=== PATIENT | male | born 1985 | race Caucasian/White ===

== ENCOUNTER 2023-05-23 20:29 | Inpatient (IN) | payer OTHER, SELFPAY ==
[2023-05-23 22:11] VITALS: BMI 28.1
[2023-05-23 22:13] VITALS: BP 126/84; PULSE 84; RESP 18; TEMP 36.6; O2SAT 97
--- NOTE | 2023-05-24 01:25 | PC.ADMIT ---
Woody is a 37 year old male admitted for unspecified depressive disorder on a CV from [facility]. patient stated that he drinks 1/2 a pint of hard liquor several times a week but has not drank since 05/19/23 as he has been at [facility] since 05/19/23. Patient states that he was feeling suicidal before going to [facility]. I felt like if I wasn't here if I just left then things would be better so I took some stuff. Patient is on Methadone Maintenance through [facility] . He describes feeling overwhelmed r/t homelessness, his children being in the custody of his parents secondary to his girlfriend having the children taken into DCF custody reportedly for the girlfriends prostitution. Per his crisis report the patient had positive suicidal/homicidal ideation prior to going to [facility]. When asked the patient denies current suicidal/homicidal ideation stating that he want's to get his medications adjusted and his life back together. Patient is alert and oriented on all spheres, pleasant and cooperative, all admission documentation completed, treatment plan initiated hospitalist consultation ordered and notifications made, monitor for safety
[2023-05-24 06:00] VITALS: BP 120/70; PULSE 81; TEMP 36.4; O2SAT 99
--- NOTE | 2023-05-24 07:39 | HE.PHANOTE ---
methadone verification form [facility] [phone] last dosed 05/23/23 @140 mg @ 0900
[2023-05-24 12:25] LABS: Alanine Aminotransferase 36 U/L (0-40); Alkaline Phosphatase 123 U/L (39-117); Anion Gap 16 (12-20); Aspartate Amino Transferase 47 U/L (5-37); Bilirubin Total 0.2 mg/dL (0.0-1.0); Blood Urea Nitrogen 12 mg/dL (9-16); Calcium 9.5 mg/dL (8.4-10.2); Carbon Dioxide 30 mmol/L (22-29); Chloride 101 mmol/L (96-108); Cholesterol 171 mg/dL (<200); Creatinine Clr Calc Pharmacy 101.9; Estimated Glomerular Filt Rate > 60; Glucose Fasting 138 mg/dL (60-99); HDL Cholesterol 54 mg/dL (>40); LDL Cholesterol Calculated 84 mg/dL (<100); Magnesium 2.1 mg/dL (1.6-2.6); Potassium 4.5 mmol/L (3.3-5.1); Sodium 142 mmol/L (135-145); Total Protein 6.9 g/dL (6.5-8.0); Triglycerides 169 mg/dL (<150)
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
[2023-05-24 12:42] LABS: Free T4 (Free Thyroxine) 1.06 ng/dL (0.71-1.85); Thyroid Stimulating Hormone 1.65 uIU/mL (0.32-4.0)
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
[2023-05-24 22:01] VITALS: BP 138/71; PULSE 80; RESP 18; TEMP 36.5; O2SAT 97
[2023-05-25 06:00] VITALS: BP 91/54; PULSE 72; RESP 18; TEMP 36.2; O2SAT 95
[2023-05-25 08:35] VITALS: BP 131/69; PULSE 80
--- NOTE | 2023-05-25 11:27 | HO.PSYCHPN ---
Subjective Subjective Date of Service: 05/25/23 Reason For Visit: Unspecified depressive disorder, opioid use Medical Problems Affecting Mental Status: No Interim History: met with patient. Discussed with Nursing. Chart reviewed. Overall reports mood is gradually getting better. Slept well last night. Feels the Seroquel and clonidine are helpful. No psychosis or SI. Looking forward to meeting with primary team tomorrow and remains open to rehab services. Labs unremarkable. Medication Compliance: Yes Side effects from medications: No Attending Groups: Intermittent Review of Systems Acute medical concerns: No Review of Systems Review of Systems Yes all other systems are reviewed and are negative Mental Status Exam Mental Status Exam Narrative: pleasant. Engaged. Appropriately presented. Organized. Less dysthymic. Denies SI. Denies HI or agitation. No overt psychosis noted or endorsed. Insight and judgment fair no evidence of withdrawals. Diagnostics Vital Signs (24Hr): Vital Signs - 24 hr 05/24/23 22:01 05/25/23 06:00 05/25/23 08:35 Temperature 97.7 F 97.1 F Pulse Rate 80 72 80 Respiratory Rate 18 18 Blood Pressure 138/71 91/54 L 131/69 Pulse Oximetry 97 95 Oxygen Delivery Method Room Air Room Air BMI result Body Mass Index 28.1 Labs 05/24/23 11:24 Labs: Laboratory Results - last 48 hr 05/24/23 11:24 Sodium 142 Potassium 4.5 Chloride 101 Carbon Dioxide 30 H Anion Gap 16 BUN 12 Creatinine 0.98 Estim Creat Clear Calc 101.9 Estimated GFR > 60 Fasting Glucose 138 H Estimat Average Glucose 100 Hemoglobin A1c % 5.1 Calcium 9.5 Magnesium 2.1 Total Bilirubin 0.2 AST 47 H ALT 36 Alkaline Phosphatase 123 H Total Protein 6.9 Albumin 4.0 Triglycerides 169 H Cholesterol 171 LDL Cholesterol, Calc 84 HDL Cholesterol 54 Folate 12.2 TSH 1.65 Free T4 1.06 Medications Medications Current Medications Acetaminophen (Acetaminophen 325 Mg Tablet) 650 mg PO Q6H PRN PRN Reason: Headache/Pain Mild Scale (1-3) Al Hydroxide/Mg Hydroxide (Magnesium Hydrox/Alum Hydrox 30 Ml Oral.Susp) 30 ml PO Q6H PRN PRN Reason: Heartburn/Nausea Clonidine HCl (Clonidine Hcl 0.1 Mg Tablet) 0.1 mg PO TID [facility]; Protocol Last Admin: 05/25/23 08:31 Dose: 0.1 mg Hydroxyzine HCl (Hydroxyzine Hcl 50 Mg Tablet) 50 mg PO Q6H PRN PRN Reason: Anxiety Last Admin: 05/24/23 22:06 Dose: 50 mg Magnesium Hydroxide (Milk Of Magnesia 30 Ml Oral.Susp) 30 ml PO DAILY PRN PRN Reason: Constipation Methadone HCl (Methadone Hcl 20 Mg/2 Ml Oral.Conc) 140 mg PO DAILY [facility] Last Admin: 05/25/23 08:30 Dose: 140 mg Quetiapine Fumarate (Quetiapine Fumarate 50 Mg Tablet) 50 mg PO TID [facility] Last Admin: 05/25/23 08:31 Dose: 50 mg Quetiapine Fumarate (Quetiapine Fumarate 50 Mg Tablet) 50 mg PO BID PRN PRN Reason: agitation Last Admin: 05/24/23 22:18 Dose: 50 mg Trazodone HCl (Trazodone Hcl 50 Mg Tablet) 50 mg PO BEDTIME MRX1 PRN PRN Reason: Insomnia Last Admin: 05/24/23 22:04 Dose: 50 mg Allergies Allergies Allergy/AdvReac Type Severity Reaction Status Date / Time No Known Allergies Allergy Unverified 02/03/20 15:50 [No Known Allergies*] Assessment & Plan Assessment & Plan (1) PTSD (post-traumatic stress disorder): Status: Acute Code(s): F43.10 - Post-traumatic stress disorder, unspecified (2) Depression: Status: Acute Code(s): F32.A - Depression, unspecified (3) Opioid dependence on agonist therapy: Status: Acute Code(s): F11.20 - Opioid dependence, uncomplicated Plan Presents with major depressive symptoms, trauma history and PTSD, substance use disorder, recent use and also on methadone maintenance. Significant psychosocial stressors. Has been without medications for the best part of 1 year and will therefore restart Seroquel, clonidine and Vistaril, which patient reports has been helpful in the past. 05/25/2023: No changes to current plan Reason for continued inpatient stay Substantial Risk for: harm to self Time Spent With Patient Time: Total time managing care of this patient today ____ minutes.
[2023-05-25 21:58] VITALS: BP 115/60; PULSE 73; RESP 16; TEMP 36.6; O2SAT 96
[2023-05-26 07:25] VITALS: BP 116/55; PULSE 86; RESP 18; TEMP 35.9; O2SAT 96
[2023-05-26 07:45] VITALS: BP 116/55; PULSE 86; RESP 18; TEMP 35.9; O2SAT 96
--- NOTE | 2023-05-26 13:49 | HO.PSYCHPN ---
Subjective Subjective Date of Service: 05/26/23 Reason For Visit: Unspecified depressive disorder, opioid use Interim History: calm, cooperative. found resting in his room. feels improved having been restarted on his regimen. would like to be referred to a rehab. no other complaints or requests. per staff, isolative sat/sun. excessive sleep. dep 7, anx 3. wants to D/C to a program. Mental Status Exam Mental Status Exam Narrative: pleasant. Engaged. Appropriately presented. Organized. Less dysthymic. Denies SI. Denies HI or agitation. No overt psychosis noted or endorsed. Insight and judgment fair no evidence of withdrawals. Diagnostics Vital Signs (24Hr): Vital Signs - 24 hr 05/25/23 21:58 05/26/23 07:25 05/26/23 07:45 Temperature 97.8 F 96.7 F L 96.7 F L Pulse Rate 73 86 86 Respiratory Rate 16 18 18 Blood Pressure 115/60 116/55 L 116/55 L Pulse Oximetry 96 96 96 Oxygen Delivery Method Room Air Room Air Room Air BMI result Body Mass Index 28.1 Labs 05/24/23 11:24 Medications Medications Current Medications Acetaminophen (Acetaminophen 325 Mg Tablet) 650 mg PO Q6H PRN PRN Reason: Headache/Pain Mild Scale (1-3) Al Hydroxide/Mg Hydroxide (Magnesium Hydrox/Alum Hydrox 30 Ml Oral.Susp) 30 ml PO Q6H PRN PRN Reason: Heartburn/Nausea Clonidine HCl (Clonidine Hcl 0.1 Mg Tablet) 0.1 mg PO TID [facility]; Protocol Last Admin: 05/26/23 08:10 Dose: 0.1 mg Hydroxyzine HCl (Hydroxyzine Hcl 50 Mg Tablet) 50 mg PO Q6H PRN PRN Reason: Anxiety Last Admin: 05/25/23 21:53 Dose: 50 mg Magnesium Hydroxide (Milk Of Magnesia 30 Ml Oral.Susp) 30 ml PO DAILY PRN PRN Reason: Constipation Methadone HCl (Methadone Hcl 20 Mg/2 Ml Oral.Conc) 140 mg PO DAILY [facility] Last Admin: 05/26/23 08:11 Dose: 140 mg Nicotine Polacrilex (Nicotine Polacrilex 2 Mg Gum) 4 mg BUCCAL Q1H PRN PRN Reason: Nicotine Cravings Quetiapine Fumarate (Quetiapine Fumarate 50 Mg Tablet) 50 mg PO TID [facility] Last Admin: 05/26/23 08:10 Dose: 50 mg Quetiapine Fumarate (Quetiapine Fumarate 50 Mg Tablet) 50 mg PO BID PRN PRN Reason: agitation Last Admin: 05/24/23 22:18 Dose: 50 mg Trazodone HCl (Trazodone Hcl 50 Mg Tablet) 50 mg PO BEDTIME MRX1 PRN PRN Reason: Insomnia Last Admin: 05/25/23 21:53 Dose: 50 mg Allergies Allergies Allergy/AdvReac Type Severity Reaction Status Date / Time No Known Allergies Allergy Unverified 02/03/20 15:50 [No Known Allergies*] Assessment & Plan Assessment & Plan (1) PTSD (post-traumatic stress disorder): Status: Acute Code(s): F43.10 - Post-traumatic stress disorder, unspecified (2) Depression: Status: Acute Code(s): F32.A - Depression, unspecified (3) Opioid dependence on agonist therapy: Status: Acute Code(s): F11.20 - Opioid dependence, uncomplicated Plan Presents with major depressive symptoms, trauma history and PTSD, substance use disorder, recent use and also on methadone maintenance. Significant psychosocial stressors. Has been without medications for the best part of 1 year and will therefore restart Seroquel, clonidine and Vistaril, which patient reports has been helpful in the past. 05/25: No changes to current plan 05/26: mood improved after regimen restarted. interested in [facility]. continue current mgmt, refer to [facility]. Reason for continued inpatient stay Substantial Risk for: harm to others and rapid decompensation Time Spent With Patient Time: Total time managing care of this patient today __25__ minutes.
[2023-05-26 15:21] VITALS: BP 103/63
[2023-05-26] MEDS: QUEtiapine Fumarate 50 MG TABLET PO ×2 (19:53→21:25)
[2023-05-26] MEDS: cloNIDine HCL 0.1 MG TABLET PO (21:25)
[2023-05-26] MEDS: traZODone HCL 50 MG TABLET PO (21:25)
[2023-05-26 21:33] VITALS: BP 120/60; PULSE 74; RESP 16; TEMP 35.9; O2SAT 98
[2023-05-27 07:15] VITALS: BP 99/52; PULSE 68; RESP 16; TEMP 36.3; O2SAT 97
[2023-05-27] MEDS: methADONE HCl 20 MG/2 ML ORAL.CONC 140 MG PO (09:28)
[2023-05-27] MEDS: cloNIDine HCL 0.1 MG TABLET PO ×3 (09:30→21:45)
[2023-05-27] MEDS: QUEtiapine Fumarate 50 MG TABLET PO ×2 (09:30→12:33)
[2023-05-27] MEDS: hydrOXYzine HCL 50 MG TABLET PO (12:33)
--- NOTE | 2023-05-27 14:40 | HO.PSYCHPN ---
Subjective Subjective Date of Service: 05/27/23 Reason For Visit: Unspecified depressive disorder, opioid use Interim History: calm, cooperative, pleasant. discussed his referrals to rehabs. asks for seroquel TID to be increased from 50 to 75 mg each dose. per staff, dep 4, anx 6-7. wants more seroquel at bedtime. slept about 8 hours. not attending groups. Mental Status Exam Mental Status Exam Narrative: pleasant. Engaged. Appropriately presented. Organized. euthymic. no SI/HI/AVH expressed. No overt psychosis noted or endorsed. Insight and judgment fair no evidence of withdrawals. Diagnostics Vital Signs (24Hr): Vital Signs - 24 hr 05/26/23 15:21 05/26/23 21:33 05/27/23 07:15 Temperature 96.6 F L 97.3 F Pulse Rate 74 68 Respiratory Rate 16 16 Blood Pressure 103/63 120/60 99/52 L Pulse Oximetry 98 97 Oxygen Delivery Method Room Air Room Air BMI result Body Mass Index 28.1 Labs 05/24/23 11:24 Labs: Laboratory Results - last 48 hr 05/24/23 11:24 Vitamin B12 875 Medications Medications Current Medications Acetaminophen (Acetaminophen 325 Mg Tablet) 650 mg PO Q6H PRN PRN Reason: Headache/Pain Mild Scale (1-3) Al Hydroxide/Mg Hydroxide (Magnesium Hydrox/Alum Hydrox 30 Ml Oral.Susp) 30 ml PO Q6H PRN PRN Reason: Heartburn/Nausea Clonidine HCl (Clonidine Hcl 0.1 Mg Tablet) 0.1 mg PO TID [facility]; Protocol Last Admin: 05/27/23 09:30 Dose: 0.1 mg Hydroxyzine HCl (Hydroxyzine Hcl 50 Mg Tablet) 50 mg PO Q6H PRN PRN Reason: Anxiety Last Admin: 05/27/23 12:33 Dose: 50 mg Magnesium Hydroxide (Milk Of Magnesia 30 Ml Oral.Susp) 30 ml PO DAILY PRN PRN Reason: Constipation Methadone HCl (Methadone Hcl 20 Mg/2 Ml Oral.Conc) 140 mg PO DAILY [facility] Last Admin: 05/27/23 09:28 Dose: 140 mg Nicotine Polacrilex (Nicotine Polacrilex 2 Mg Gum) 4 mg BUCCAL Q1H PRN PRN Reason: Nicotine Cravings Quetiapine Fumarate (Quetiapine Fumarate 50 Mg Tablet) 50 mg PO BID PRN PRN Reason: agitation Last Admin: 05/27/23 12:33 Dose: 50 mg Quetiapine Fumarate (Quetiapine Fumarate 25 Mg Tablet) 75 mg PO TID [facility] Trazodone HCl (Trazodone Hcl 50 Mg Tablet) 50 mg PO BEDTIME MRX1 PRN PRN Reason: Insomnia Last Admin: 05/26/23 21:25 Dose: 50 mg Allergies Allergies Allergy/AdvReac Type Severity Reaction Status Date / Time No Known Allergies Allergy Unverified 02/03/20 15:50 [No Known Allergies*] Assessment & Plan Assessment & Plan (1) PTSD (post-traumatic stress disorder): Status: Acute Code(s): F43.10 - Post-traumatic stress disorder, unspecified (2) Depression: Status: Acute Code(s): F32.A - Depression, unspecified (3) Opioid dependence on agonist therapy: Status: Acute Code(s): F11.20 - Opioid dependence, uncomplicated Plan Presents with major depressive symptoms, trauma history and PTSD, substance use disorder, recent use and also on methadone maintenance. Significant psychosocial stressors. Has been without medications for the best part of 1 year and will therefore restart Seroquel, clonidine and Vistaril, which patient reports has been helpful in the past. 05/25: No changes to current plan 05/26: mood improved after regimen restarted. interested in [facility]. continue current mgmt, refer to [facility]. 05/27: increase seroquel 50 TID to 75 TID, otherwise continue current mgmt. referrals being placed with [facility]. Reason for continued inpatient stay Substantial Risk for: inability to function and rapid decompensation Time Spent With Patient Time: Total time managing care of this patient today __25__ minutes.
[2023-05-27 16:08] VITALS: BP 100/59; PULSE 70
[2023-05-27] MEDS: QUEtiapine Fumarate 25 MG TABLET 75 MG PO ×2 (16:10→21:45)
[2023-05-27 21:00] VITALS: BP 115/67; PULSE 93; RESP 16; TEMP 36.7; O2SAT 96
[2023-05-28 07:05] VITALS: BP 106/63; PULSE 83; RESP 16; TEMP 35.8; O2SAT 98
[2023-05-28] MEDS: cloNIDine HCL 0.1 MG TABLET PO ×3 (09:49→20:27)
[2023-05-28] MEDS: QUEtiapine Fumarate 25 MG TABLET 75 MG PO ×3 (09:49→20:27)
[2023-05-28] MEDS: methADONE HCl 20 MG/2 ML ORAL.CONC 140 MG PO (09:50)
--- NOTE | 2023-05-28 13:15 | HO.PSYCHPN ---
Subjective Subjective Date of Service: 05/28/23 Reason For Visit: Unspecified depressive disorder, opioid use Interim History: no complaints or requests. waiting to hear from [employer]. reminded to call [facility] and to attend groups. denies SI/SIBI. mood stable. per staff, cheerful. visible at times. slept most of the day. taking meds. slept all shift. slept 8 hours overnight. not attending groups. Mental Status Exam Mental Status Exam Narrative: pleasant. Engaged. Appropriately presented. Organized. mood stable. no SI/HI/AVH expressed. No overt psychosis noted or endorsed. Insight and judgment fair no evidence of withdrawals. Diagnostics Vital Signs (24Hr): Vital Signs - 24 hr 05/27/23 16:08 05/27/23 21:00 05/28/23 07:05 Temperature 98.1 F 96.5 F L Pulse Rate 70 93 83 Respiratory Rate 16 16 Blood Pressure 100/59 L 115/67 106/63 Pulse Oximetry 96 98 Oxygen Delivery Method Room Air Room Air BMI result Body Mass Index 28.1 Labs 05/24/23 11:24 Labs: Laboratory Results - last 48 hr 05/24/23 11:24 Vitamin B12 875 Medications Medications Current Medications Acetaminophen (Acetaminophen 325 Mg Tablet) 650 mg PO Q6H PRN PRN Reason: Headache/Pain Mild Scale (1-3) Al Hydroxide/Mg Hydroxide (Magnesium Hydrox/Alum Hydrox 30 Ml Oral.Susp) 30 ml PO Q6H PRN PRN Reason: Heartburn/Nausea Clonidine HCl (Clonidine Hcl 0.1 Mg Tablet) 0.1 mg PO TID [facility]; Protocol Last Admin: 05/28/23 09:49 Dose: 0.1 mg Hydroxyzine HCl (Hydroxyzine Hcl 50 Mg Tablet) 50 mg PO Q6H PRN PRN Reason: Anxiety Last Admin: 05/27/23 12:33 Dose: 50 mg Magnesium Hydroxide (Milk Of Magnesia 30 Ml Oral.Susp) 30 ml PO DAILY PRN PRN Reason: Constipation Methadone HCl (Methadone Hcl 20 Mg/2 Ml Oral.Conc) 140 mg PO DAILY [facility] Last Admin: 05/28/23 09:50 Dose: 140 mg Nicotine Polacrilex (Nicotine Polacrilex 2 Mg Gum) 4 mg BUCCAL Q1H PRN PRN Reason: Nicotine Cravings Quetiapine Fumarate (Quetiapine Fumarate 50 Mg Tablet) 50 mg PO BID PRN PRN Reason: agitation Last Admin: 05/27/23 12:33 Dose: 50 mg Quetiapine Fumarate (Quetiapine Fumarate 25 Mg Tablet) 75 mg PO TID [facility] Last Admin: 05/28/23 09:49 Dose: 75 mg Trazodone HCl (Trazodone Hcl 50 Mg Tablet) 50 mg PO BEDTIME MRX1 PRN PRN Reason: Insomnia Last Admin: 05/26/23 21:25 Dose: 50 mg Allergies Allergies Allergy/AdvReac Type Severity Reaction Status Date / Time No Known Allergies Allergy Unverified 02/03/20 15:50 [No Known Allergies*] Assessment & Plan Assessment & Plan (1) PTSD (post-traumatic stress disorder): Status: Acute Code(s): F43.10 - Post-traumatic stress disorder, unspecified (2) Depression: Status: Acute Code(s): F32.A - Depression, unspecified (3) Opioid dependence on agonist therapy: Status: Acute Code(s): F11.20 - Opioid dependence, uncomplicated Plan Presents with major depressive symptoms, trauma history and PTSD, substance use disorder, recent use and also on methadone maintenance. Significant psychosocial stressors. Has been without medications for the best part of 1 year and will therefore restart Seroquel, clonidine and Vistaril, which patient reports has been helpful in the past. 05/25: No changes to current plan 05/26: mood improved after regimen restarted. interested in [facility]. continue current mgmt, refer to [facility]. 05/27: increase seroquel 50 TID to 75 TID, otherwise continue current mgmt. referrals being placed with [facility]. 05/28: no requests or complaints. continue current mgmt. awaiting word on [facility]. stable. Reason for continued inpatient stay Substantial Risk for: rapid decompensation Time Spent With Patient Time: Total time managing care of this patient today __25__ minutes.
[2023-05-28 14:15] VITALS: BP 109/62; PULSE 82
[2023-05-28 20:10] VITALS: BP 111/60; PULSE 81; RESP 16; TEMP 36.9; O2SAT 96
[2023-05-28] MEDS: QUEtiapine Fumarate 50 MG TABLET PO (21:58)
[2023-05-28] MEDS: hydrOXYzine HCL 50 MG TABLET PO (21:58)
[2023-05-29 06:00] VITALS: BP 103/55; PULSE 71; RESP 16; TEMP 36.3; O2SAT 96
[2023-05-29 07:00] VITALS: BMI 28.1
[2023-05-29] MEDS: methADONE HCl 20 MG/2 ML ORAL.CONC 140 MG PO (08:33)
[2023-05-29] MEDS: cloNIDine HCL 0.1 MG TABLET PO ×3 (08:35→20:42)
[2023-05-29] MEDS: QUEtiapine Fumarate 25 MG TABLET 75 MG PO ×3 (08:35→20:42)
[2023-05-29] MEDS: Nicotine Polacrilex 2 MG GUM 4 MG BUCCAL (09:42)
[2023-05-29] MEDS: QUEtiapine Fumarate 50 MG TABLET PO (10:02)
[2023-05-29] MEDS: hydrOXYzine HCL 50 MG TABLET PO (10:02)
--- NOTE | 2023-05-29 14:08 | HO.PSYCHPN ---
Subjective Subjective Date of Service: 05/29/23 Reason For Visit: Unspecified depressive disorder, opioid use Interim History: calm, cooperative. slept through the night, which is an improvement. feeling better mood-cruz. awaiting news on [facility] beds. per staff, stable, no change. Mental Status Exam Mental Status Exam Narrative: pleasant. Engaged. Appropriately presented. Organized. mood improved. no SI/HI/AVH expressed. No overt psychosis noted or endorsed. Insight and judgment fair no evidence of withdrawals. Diagnostics Vital Signs (24Hr): Vital Signs - 24 hr 05/28/23 14:15 05/28/23 20:10 05/29/23 06:00 Temperature 98.5 F 97.4 F Pulse Rate 82 81 71 Respiratory Rate 16 16 Blood Pressure 109/62 111/60 103/55 L Pulse Oximetry 96 96 Oxygen Delivery Method Room Air Room Air BMI result Body Mass Index 28.1 Labs 05/24/23 11:24 Medications Medications Current Medications Acetaminophen (Acetaminophen 325 Mg Tablet) 650 mg PO Q6H PRN PRN Reason: Headache/Pain Mild Scale (1-3) Al Hydroxide/Mg Hydroxide (Magnesium Hydrox/Alum Hydrox 30 Ml Oral.Susp) 30 ml PO Q6H PRN PRN Reason: Heartburn/Nausea Clonidine HCl (Clonidine Hcl 0.1 Mg Tablet) 0.1 mg PO TID [facility]; Protocol Last Admin: 05/29/23 08:35 Dose: 0.1 mg Hydroxyzine HCl (Hydroxyzine Hcl 50 Mg Tablet) 50 mg PO Q6H PRN PRN Reason: Anxiety Last Admin: 05/29/23 10:02 Dose: 50 mg Magnesium Hydroxide (Milk Of Magnesia 30 Ml Oral.Susp) 30 ml PO DAILY PRN PRN Reason: Constipation Methadone HCl (Methadone Hcl 20 Mg/2 Ml Oral.Conc) 140 mg PO DAILY [facility] Last Admin: 05/29/23 08:33 Dose: 140 mg Nicotine Polacrilex (Nicotine Polacrilex 2 Mg Gum) 4 mg BUCCAL Q1H PRN PRN Reason: Nicotine Cravings Last Admin: 05/29/23 09:42 Dose: 4 mg Quetiapine Fumarate (Quetiapine Fumarate 50 Mg Tablet) 50 mg PO BID PRN PRN Reason: agitation Last Admin: 05/29/23 10:02 Dose: 50 mg Quetiapine Fumarate (Quetiapine Fumarate 25 Mg Tablet) 75 mg PO TID [facility] Last Admin: 05/29/23 08:35 Dose: 75 mg Trazodone HCl (Trazodone Hcl 50 Mg Tablet) 50 mg PO BEDTIME MRX1 PRN PRN Reason: Insomnia Last Admin: 05/26/23 21:25 Dose: 50 mg Allergies Allergies Allergy/AdvReac Type Severity Reaction Status Date / Time No Known Allergies Allergy Unverified 02/03/20 15:50 [No Known Allergies*] Assessment & Plan Assessment & Plan (1) PTSD (post-traumatic stress disorder): Status: Acute Code(s): F43.10 - Post-traumatic stress disorder, unspecified (2) Depression: Status: Acute Code(s): F32.A - Depression, unspecified (3) Opioid dependence on agonist therapy: Status: Acute Code(s): F11.20 - Opioid dependence, uncomplicated Plan Presents with major depressive symptoms, trauma history and PTSD, substance use disorder, recent use and also on methadone maintenance. Significant psychosocial stressors. Has been without medications for the best part of 1 year and will therefore restart Seroquel, clonidine and Vistaril, which patient reports has been helpful in the past. 05/25: No changes to current plan 05/26: mood improved after regimen restarted. interested in [facility]. continue current mgmt, refer to [facility]. 05/27: increase seroquel 50 TID to 75 TID, otherwise continue current mgmt. referrals being placed with [facility]. 05/28: no requests or complaints. continue current mgmt. awaiting word on [facility]. stable. 05/29: no change from yesterday. sleeping better, mood improved. awaiting word from [facility]. Reason for continued inpatient stay Substantial Risk for: rapid decompensation Time Spent With Patient Time: Total time managing care of this patient today ____ minutes.
[2023-05-29 18:00] VITALS: BP 115/58; PULSE 88; RESP 18; TEMP 36.4; O2SAT 98
[2023-05-30 07:20] VITALS: BP 103/56; PULSE 76; RESP 18; TEMP 36.2; O2SAT 96
[2023-05-30] MEDS: methADONE HCl 20 MG/2 ML ORAL.CONC 140 MG PO (08:19)
[2023-05-30] MEDS: QUEtiapine Fumarate 25 MG TABLET 75 MG PO ×2 (08:21→20:14)
[2023-05-30] MEDS: cloNIDine HCL 0.1 MG TABLET PO ×3 (08:21→20:15)
[2023-05-30] MEDS: hydrOXYzine HCL 50 MG TABLET PO ×2 (11:31→19:37)
[2023-05-30] MEDS: QUEtiapine Fumarate 50 MG TABLET PO (11:31)
[2023-05-30] MEDS: Nicotine Polacrilex 2 MG GUM 4 MG BUCCAL (12:40)
--- NOTE | 2023-05-30 14:32 | HO.PSYCHPN ---
Subjective Subjective Date of Service: 05/30/23 Reason For Visit: Unspecified depressive disorder, opioid use Interim History: calm, cooperative. c/o constipation, bowel regimen added. per staff, awaiting [facility] bed. no issues. some groups, taking meds. slept. per staff, severe anxiety early afternoon due to triggering milieu, given seroquel 100 mg x 1. Mental Status Exam Mental Status Exam Narrative: pleasant. Engaged. Appropriately presented. Organized. mood improved. no SI/HI/AVH expressed. No overt psychosis noted or endorsed. Insight and judgment fair no evidence of withdrawals. Diagnostics Vital Signs (24Hr): Vital Signs - 24 hr 05/29/23 18:00 05/30/23 07:20 Temperature 97.6 F 97.2 F Pulse Rate 88 76 Respiratory Rate 18 18 Blood Pressure 115/58 L 103/56 L Pulse Oximetry 98 96 Oxygen Delivery Method Room Air Room Air BMI result Body Mass Index 28.1 Labs 05/24/23 11:24 Medications Medications Current Medications Acetaminophen (Acetaminophen 325 Mg Tablet) 650 mg PO Q6H PRN PRN Reason: Headache/Pain Mild Scale (1-3) Al Hydroxide/Mg Hydroxide (Magnesium Hydrox/Alum Hydrox 30 Ml Oral.Susp) 30 ml PO Q6H PRN PRN Reason: Heartburn/Nausea Clonidine HCl (Clonidine Hcl 0.1 Mg Tablet) 0.1 mg PO TID [facility]; Protocol Last Admin: 05/30/23 08:21 Dose: 0.1 mg Docusate Sodium (Docusate Sodium 100 Mg Capsule) 100 mg PO BID [facility] Last Admin: 05/30/23 12:31 Dose: Not Given Hydroxyzine HCl (Hydroxyzine Hcl 50 Mg Tablet) 50 mg PO Q6H PRN PRN Reason: Anxiety Last Admin: 05/30/23 11:31 Dose: 50 mg Magnesium Hydroxide (Milk Of Magnesia 30 Ml Oral.Susp) 30 ml PO DAILY PRN PRN Reason: Constipation Methadone HCl (Methadone Hcl 20 Mg/2 Ml Oral.Conc) 140 mg PO DAILY [facility] Last Admin: 05/30/23 08:19 Dose: 140 mg Nicotine Polacrilex (Nicotine Polacrilex 2 Mg Gum) 4 mg BUCCAL Q1H PRN PRN Reason: Nicotine Cravings Last Admin: 05/30/23 12:40 Dose: 4 mg Quetiapine Fumarate (Quetiapine Fumarate 50 Mg Tablet) 50 mg PO BID PRN PRN Reason: agitation Last Admin: 05/30/23 11:31 Dose: 50 mg Quetiapine Fumarate (Quetiapine Fumarate 25 Mg Tablet) 75 mg PO TID [facility] Last Admin: 05/30/23 08:21 Dose: 75 mg Trazodone HCl (Trazodone Hcl 50 Mg Tablet) 50 mg PO BEDTIME MRX1 PRN PRN Reason: Insomnia Last Admin: 05/26/23 21:25 Dose: 50 mg Allergies Allergies Allergy/AdvReac Type Severity Reaction Status Date / Time No Known Allergies Allergy Unverified 02/03/20 15:50 [No Known Allergies*] Assessment & Plan Assessment & Plan (1) PTSD (post-traumatic stress disorder): Status: Acute Code(s): F43.10 - Post-traumatic stress disorder, unspecified (2) Depression: Status: Acute Code(s): F32.A - Depression, unspecified (3) Opioid dependence on agonist therapy: Status: Acute Code(s): F11.20 - Opioid dependence, uncomplicated Plan Presents with major depressive symptoms, trauma history and PTSD, substance use disorder, recent use and also on methadone maintenance. Significant psychosocial stressors. Has been without medications for the best part of 1 year and will therefore restart Seroquel, clonidine and Vistaril, which patient reports has been helpful in the past. 05/25: No changes to current plan 05/26: mood improved after regimen restarted. interested in [facility]. continue current mgmt, refer to [facility]. 05/27: increase seroquel 50 TID to 75 TID, otherwise continue current mgmt. referrals being placed with [facility]. 05/28: no requests or complaints. continue current mgmt. awaiting word on [facility]. stable. 05/29: no change from yesterday. sleeping better, mood improved. awaiting word from [facility]. 05/30: stable, improved from admission. continue current mgmt. Reason for continued inpatient stay Substantial Risk for: inability to function and rapid decompensation Time Spent With Patient Time: Total time managing care of this patient today __25__ minutes.
[2023-05-30] MEDS: QUEtiapine Fumarate 100 MG TABLET PO (15:04)
[2023-05-30 15:05] VITALS: BP 97/59; PULSE 79; O2SAT 96
[2023-05-30 20:10] VITALS: BP 102/60; PULSE 78; RESP 14; TEMP 36.6; O2SAT 96
[2023-05-30] MEDS: traZODone HCL 50 MG TABLET PO (20:15)
[2023-05-31 07:35] VITALS: BP 108/59; PULSE 63; RESP 16; TEMP 35.9; O2SAT 96
[2023-05-31] MEDS: methADONE HCl 20 MG/2 ML ORAL.CONC 140 MG PO (09:34)
[2023-05-31] MEDS: cloNIDine HCL 0.1 MG TABLET PO ×3 (09:37→20:22)
[2023-05-31] MEDS: QUEtiapine Fumarate 25 MG TABLET 75 MG PO ×3 (09:37→20:21)
--- NOTE | 2023-05-31 13:07 | HO.PSYCHPN ---
Subjective Subjective Date of Service: 05/31/23 Reason For Visit: Unspecified depressive disorder, opioid use Subjective Notes: Conditional Voluntary Interim History: The nursing staff reported the patient had been restless, dysphoric at times. He complained that he has racing thoughts but he is much better he slept better. On interview the patient denies new symptoms he looks restless at times. No safety concerns Mental Status Exam Mental Status Exam Patient Appearance: Appropriate Patient Orientation: Person and Situation Level of Consciousness: Awake and Appropriate Patient Behavior: Guarded and Passive Mood Description: Calm Affect Description: Labile Patient Cognition Impaired: Yes Ability to Follow Directions: Fair Speech Pattern: Clear Hallucinations: None Delusions: Not Present Thought Process: Racing, Distracted and Evasive Thought Content: positive for [place], positive for Disorganized and positive for Evasive Judgement: Poor Diagnostics Vital Signs (24Hr): Vital Signs - 24 hr 05/30/23 15:05 05/30/23 20:10 05/31/23 07:35 Temperature 97.9 F 96.6 F L Pulse Rate 79 78 63 Respiratory Rate 14 16 Blood Pressure 97/59 L 102/60 108/59 L Pulse Oximetry 96 96 96 Oxygen Delivery Method Room Air Room Air BMI result Body Mass Index 28.1 Labs 05/24/23 11:24 Medications Medications Current Medications Acetaminophen (Acetaminophen 325 Mg Tablet) 650 mg PO Q6H PRN PRN Reason: Headache/Pain Mild Scale (1-3) Al Hydroxide/Mg Hydroxide (Magnesium Hydrox/Alum Hydrox 30 Ml Oral.Susp) 30 ml PO Q6H PRN PRN Reason: Heartburn/Nausea Clonidine HCl (Clonidine Hcl 0.1 Mg Tablet) 0.1 mg PO TID [facility]; Protocol Last Admin: 05/31/23 09:37 Dose: 0.1 mg Docusate Sodium (Docusate Sodium 100 Mg Capsule) 100 mg PO BID [facility] Last Admin: 05/31/23 09:38 Dose: Not Given Hydroxyzine HCl (Hydroxyzine Hcl 50 Mg Tablet) 50 mg PO Q6H PRN PRN Reason: Anxiety Last Admin: 05/30/23 19:37 Dose: 50 mg Magnesium Hydroxide (Milk Of Magnesia 30 Ml Oral.Susp) 30 ml PO DAILY PRN PRN Reason: Constipation Methadone HCl (Methadone Hcl 20 Mg/2 Ml Oral.Conc) 140 mg PO DAILY [facility] Last Admin: 05/31/23 09:34 Dose: 140 mg Nicotine Polacrilex (Nicotine Polacrilex 2 Mg Gum) 4 mg BUCCAL Q1H PRN PRN Reason: Nicotine Cravings Last Admin: 05/30/23 12:40 Dose: 4 mg Quetiapine Fumarate (Quetiapine Fumarate 50 Mg Tablet) 50 mg PO BID PRN PRN Reason: agitation Last Admin: 05/30/23 11:31 Dose: 50 mg Quetiapine Fumarate (Quetiapine Fumarate 25 Mg Tablet) 75 mg PO TID [facility] Last Admin: 05/31/23 09:37 Dose: 75 mg Trazodone HCl (Trazodone Hcl 50 Mg Tablet) 50 mg PO BEDTIME MRX1 PRN PRN Reason: Insomnia Last Admin: 05/30/23 20:15 Dose: 50 mg Allergies Allergies Allergy/AdvReac Type Severity Reaction Status Date / Time No Known Allergies Allergy Unverified 02/03/20 15:50 [No Known Allergies*] Assessment & Plan Assessment & Plan (1) PTSD (post-traumatic stress disorder): Status: Acute Code(s): F43.10 - Post-traumatic stress disorder, unspecified (2) Depression: Status: Acute Code(s): F32.A - Depression, unspecified (3) Opioid dependence on agonist therapy: Status: Acute Code(s): F11.20 - Opioid dependence, uncomplicated Plan Presents with major depressive symptoms, trauma history and PTSD, substance use disorder, recent use and also on methadone maintenance. Significant psychosocial stressors. Has been without medications for the best part of 1 year and will therefore restart Seroquel, clonidine and Vistaril, which patient reports has been helpful in the past. 05/25: No changes to current plan 05/26: mood improved after regimen restarted. interested in [facility]. continue current mgmt, refer to [facility]. 05/27: increase seroquel 50 TID to 75 TID, otherwise continue current mgmt. referrals being placed with [facility]. 05/28: no requests or complaints. continue current mgmt. awaiting word on [facility]. stable. 05/29: no change from yesterday. sleeping better, mood improved. awaiting word from [facility]. 05/30: stable, improved from admission. continue current mgmt. 05/31 continue same treatment Reason for continued inpatient stay Substantial Risk for: inability to function, rapid decompensation and med/psych decompensation Time Spent With Patient Time: Total time managing care of this patient today __20__ minutes.
[2023-05-31] MEDS: QUEtiapine Fumarate 50 MG TABLET PO ×2 (13:46→18:46)
[2023-05-31 14:12] VITALS: BP 103/62; PULSE 68
[2023-05-31] MEDS: Ibuprofen 600 MG TABLET PO (16:46)
[2023-05-31 20:00] VITALS: BP 105/60; PULSE 68; RESP 16; TEMP 36.5; O2SAT 96
[2023-05-31] MEDS: traZODone HCL 50 MG TABLET PO (20:21)
[2023-06-01 07:25] VITALS: BP 109/59; PULSE 71; RESP 14; TEMP 37.1; O2SAT 96
[2023-06-01] MEDS: QUEtiapine Fumarate 25 MG TABLET 75 MG PO ×3 (09:55→20:10)
[2023-06-01] MEDS: cloNIDine HCL 0.1 MG TABLET PO ×2 (09:55→20:10)
[2023-06-01] MEDS: methADONE HCl 20 MG/2 ML ORAL.CONC 140 MG PO (09:56)
--- NOTE | 2023-06-01 13:41 | P.PNPSI_ITS ---
Subjective Subjective Date of Service: 06/01/23 Reason For Visit: Unspecified depressive disorder, opioid use Subjective Notes: Conditional Voluntary Interim History: The nursing staff reported the patient had been withdrawn labile yesterday but more redirectable. He was a little aggressive towards a peer but he was easily redirectable. On interview the patient denies new symptoms. Content with current treatment Mental Status Exam Mental Status Exam Patient Appearance: Appropriate Patient Orientation: Person and Situation Level of Consciousness: Awake and Appropriate Patient Behavior: Passive Mood Description: Calm Affect Description: Constricted Patient Cognition Impaired: Yes Ability to Follow Directions: Good Speech Pattern: Clear Hallucinations: None Delusions: Not Present Thought Process: Distracted and Slowed Thinking Thought Content: positive for [place] Judgement: Fair Diagnostics Vital Signs (24Hr): Vital Signs - 24 hr 05/31/23 14:12 05/31/23 20:00 06/01/23 07:25 Temperature 97.7 F 98.8 F Pulse Rate 68 68 71 Respiratory Rate 16 14 Blood Pressure 103/62 105/60 109/59 L Pulse Oximetry 96 96 Oxygen Delivery Method Room Air Room Air BMI result Body Mass Index 28.1 Labs 05/24/23 11:24 Medications Medications Current Medications Acetaminophen (Acetaminophen 325 Mg Tablet) 650 mg PO Q6H PRN PRN Reason: Headache/Pain Mild Scale (1-3) Al Hydroxide/Mg Hydroxide (Magnesium Hydrox/Alum Hydrox 30 Ml Oral.Susp) 30 ml PO Q6H PRN PRN Reason: Heartburn/Nausea Clonidine HCl (Clonidine Hcl 0.1 Mg Tablet) 0.1 mg PO TID [facility]; Protocol Last Admin: 06/01/23 09:55 Dose: 0.1 mg Docusate Sodium (Docusate Sodium 100 Mg Capsule) 100 mg PO BID [facility] Last Admin: 06/01/23 09:59 Dose: Not Given Hydroxyzine HCl (Hydroxyzine Hcl 50 Mg Tablet) 50 mg PO Q6H PRN PRN Reason: Anxiety Last Admin: 05/30/23 19:37 Dose: 50 mg Ibuprofen (Ibuprofen 600 Mg Tablet) 600 mg PO Q6H PRN PRN Reason: Pain, Moderate(Pain Scale 4-6) Last Admin: 05/31/23 16:46 Dose: 600 mg Magnesium Hydroxide (Milk Of Magnesia 30 Ml Oral.Susp) 30 ml PO DAILY PRN PRN Reason: Constipation Methadone HCl (Methadone Hcl 20 Mg/2 Ml Oral.Conc) 140 mg PO DAILY [facility] Last Admin: 06/01/23 09:56 Dose: 140 mg Nicotine Polacrilex (Nicotine Polacrilex 2 Mg Gum) 4 mg BUCCAL Q1H PRN PRN Reason: Nicotine Cravings Last Admin: 05/30/23 12:40 Dose: 4 mg Quetiapine Fumarate (Quetiapine Fumarate 50 Mg Tablet) 50 mg PO BID PRN PRN Reason: agitation Last Admin: 05/31/23 18:46 Dose: 50 mg Quetiapine Fumarate (Quetiapine Fumarate 25 Mg Tablet) 75 mg PO TID [facility] Last Admin: 06/01/23 09:55 Dose: 75 mg Trazodone HCl (Trazodone Hcl 50 Mg Tablet) 50 mg PO BEDTIME MRX1 PRN PRN Reason: Insomnia Last Admin: 05/31/23 20:21 Dose: 50 mg Allergies Allergies Allergy/AdvReac Type Severity Reaction Status Date / Time No Known Allergies Allergy Unverified 02/03/20 15:50 [No Known Allergies*] Assessment & Plan Assessment & Plan (1) PTSD (post-traumatic stress disorder): Status: Acute Code(s): F43.10 - Post-traumatic stress disorder, unspecified (2) Depression: Status: Acute Code(s): F32.A - Depression, unspecified (3) Opioid dependence on agonist therapy: Status: Acute Code(s): F11.20 - Opioid dependence, uncomplicated Plan Presents with major depressive symptoms, trauma history and PTSD, substance use disorder, recent use and also on methadone maintenance. Significant psychosocial stressors. Has been without medications for the best part of 1 year and will therefore restart Seroquel, clonidine and Vistaril, which patient reports has been helpful in the past. 05/25: No changes to current plan 05/26: mood improved after regimen restarted. interested in [facility]. continue current mgmt, refer to [facility]. 05/27: increase seroquel 50 TID to 75 TID, otherwise continue current mgmt. referrals being placed with [facility]. 05/28: no requests or complaints. continue current mgmt. awaiting word on [facility]. stable. 05/29: no change from yesterday. sleeping better, mood improved. awaiting word from [facility]. 05/30: stable, improved from admission. continue current mgmt. 05/31 continue same treatment 06/01 continue same treatment Reason for continued inpatient stay Substantial Risk for: inability to function, rapid decompensation and med/psych decompensation Time Spent With Patient Time: Total time managing care of this patient today __20__ minutes.
[2023-06-01 14:02] VITALS: BP 95/56; PULSE 78
[2023-06-01] MEDS: QUEtiapine Fumarate 50 MG TABLET PO ×2 (14:04→20:10)
[2023-06-01 18:00] VITALS: BP 104/58; PULSE 75; RESP 18; TEMP 36.5; O2SAT 98
[2023-06-01] MEDS: traZODone HCL 50 MG TABLET PO (20:09)
[2023-06-02 07:20] VITALS: BP 98/57; PULSE 65; RESP 16; TEMP 36.2; O2SAT 95
[2023-06-02] MEDS: QUEtiapine Fumarate 25 MG TABLET 75 MG PO ×3 (08:30→21:27)
[2023-06-02] MEDS: cloNIDine HCL 0.1 MG TABLET PO ×3 (08:30→21:27)
[2023-06-02] MEDS: methADONE HCl 20 MG/2 ML ORAL.CONC 140 MG PO (08:32)
[2023-06-02] MEDS: QUEtiapine Fumarate 50 MG TABLET PO ×2 (11:32→21:28)
[2023-06-02] MEDS: hydrOXYzine HCL 50 MG TABLET PO (11:34)
--- NOTE | 2023-06-02 11:56 | HO.PSYCHPN ---
Subjective Subjective Date of Service: 06/02/23 Reason For Visit: Unspecified depressive disorder, opioid use Subjective Notes: Conditional Voluntary Interim History: Reviewed with Dr. Tran. social with peers, calm, guarded. Pt reports feeling good today; pt stated, I plan on going to the [facility] after here . denies SI/HI/VH/AH. Medication Compliance: Yes Side effects from medications: No Attending Groups: Intermittent Review of Systems Constitutional: Reports as per HPI Eyes: Reports as per HPI Reports as per HPI Cardiovascular: Reports as per HPI Respiratory: Reports as per HPI Gastrointestinal: Reports as per HPI Genitourinary: Reports as per HPI Musculoskeletal: Reports as per HPI Skin/Breast: Reports as per HPI Reports as per HPI Psychiatric: Reports as per HPI Endocrine: Reports as per HPI Hematologic/Lymphatic: Reports as per HPI Allergic/Immunologic: Reports as per HPI Mental Status Exam Mental Status Exam Narrative: Pt is alert and oriented; behavior is guarded; dressed in casual attire; mood is described as good ; eye contact appropriate; Speech is normal rate, volume and prosody and not pressured; thought process is organized; Thought content is on tx; denies SI/HI/VH/AH. Diagnostics Vital Signs (24Hr): Vital Signs - 24 hr 06/01/23 14:02 06/01/23 18:00 06/02/23 07:20 Temperature 97.7 F 97.2 F Pulse Rate 78 75 65 Respiratory Rate 18 16 Blood Pressure 95/56 L 104/58 L 98/57 L Pulse Oximetry 98 95 Oxygen Delivery Method Room Air Room Air BMI result Body Mass Index 28.1 Labs 05/24/23 11:24 Medications Medications Current Medications Acetaminophen (Acetaminophen 325 Mg Tablet) 650 mg PO Q6H PRN PRN Reason: Headache/Pain Mild Scale (1-3) Al Hydroxide/Mg Hydroxide (Magnesium Hydrox/Alum Hydrox 30 Ml Oral.Susp) 30 ml PO Q6H PRN PRN Reason: Heartburn/Nausea Clonidine HCl (Clonidine Hcl 0.1 Mg Tablet) 0.1 mg PO TID JAIME; Protocol Last Admin: 06/02/23 08:30 Dose: 0.1 mg Docusate Sodium (Docusate Sodium 100 Mg Capsule) 100 mg PO BID JAIME Last Admin: 06/02/23 08:30 Dose: Not Given Hydroxyzine HCl (Hydroxyzine Hcl 50 Mg Tablet) 50 mg PO Q6H PRN PRN Reason: Anxiety Last Admin: 06/02/23 11:34 Dose: 50 mg Ibuprofen (Ibuprofen 600 Mg Tablet) 600 mg PO Q6H PRN PRN Reason: Pain, Moderate(Pain Scale 4-6) Last Admin: 05/31/23 16:46 Dose: 600 mg Magnesium Hydroxide (Milk Of Magnesia 30 Ml Oral.Susp) 30 ml PO DAILY PRN PRN Reason: Constipation Methadone HCl (Methadone Hcl 20 Mg/2 Ml Oral.Conc) 140 mg PO DAILY JAIME Last Admin: 06/02/23 08:32 Dose: 140 mg Nicotine Polacrilex (Nicotine Polacrilex 2 Mg Gum) 4 mg BUCCAL Q1H PRN PRN Reason: Nicotine Cravings Last Admin: 05/30/23 12:40 Dose: 4 mg Quetiapine Fumarate (Quetiapine Fumarate 50 Mg Tablet) 50 mg PO BID PRN PRN Reason: agitation Last Admin: 06/02/23 11:32 Dose: 50 mg Quetiapine Fumarate (Quetiapine Fumarate 25 Mg Tablet) 75 mg PO TID JAIME Last Admin: 06/02/23 08:30 Dose: 75 mg Trazodone HCl (Trazodone Hcl 50 Mg Tablet) 50 mg PO BEDTIME MRX1 PRN PRN Reason: Insomnia Last Admin: 06/01/23 20:09 Dose: 50 mg Allergies Allergies Allergy/AdvReac Type Severity Reaction Status Date / Time No Known Allergies Allergy Unverified 02/03/20 15:50 [No Known Allergies*] Assessment & Plan Assessment & Plan (1) PTSD (post-traumatic stress disorder): Status: Acute Code(s): F43.10 - Post-traumatic stress disorder, unspecified (2) Depression: Status: Acute Code(s): F32.A - Depression, unspecified (3) Opioid dependence on agonist therapy: Status: Acute Code(s): F11.20 - Opioid dependence, uncomplicated Plan Presents with major depressive symptoms, trauma history and PTSD, substance use disorder, recent use and also on methadone maintenance. Significant psychosocial stressors. Has been without medications for the best part of 1 year and will therefore restart Seroquel, clonidine and Vistaril, which patient reports has been helpful in the past. 05/25: No changes to current plan 05/26: mood improved after regimen restarted. interested in [facility]. continue current mgmt, refer to [facility]. 05/27: increase seroquel 50 TID to 75 TID, otherwise continue current mgmt. referrals being placed with [facility]. 05/28: no requests or complaints. continue current mgmt. awaiting word on [facility]. stable. 05/29: no change from yesterday. sleeping better, mood improved. awaiting word from [facility]. 05/30: stable, improved from admission. continue current mgmt. 05/31 continue same treatment 06/01 continue same treatment 06/02: social with peers, calm, guarded. Pt reports feeling good today; pt stated, I plan on going to the [facility] after here . denies SI/HI/VH/AH. Continue current tx plan. Patient educated on: diagnosis and medication risk/benefits Informed Consent: understands Reason for continued inpatient stay Substantial Risk for: med/psych decompensation Time Spent With Patient Time: Total time managing care of this patient today _20___ minutes.
[2023-06-02 19:50] VITALS: BP 120/59; PULSE 74; RESP 18; TEMP 36.2; O2SAT 96
[2023-06-02] MEDS: traZODone HCL 50 MG TABLET PO (21:27)
[2023-06-03 07:50] VITALS: BP 107/59; PULSE 75; RESP 16; TEMP 36.8; O2SAT 98
[2023-06-03] MEDS: methADONE HCl 20 MG/2 ML ORAL.CONC 140 MG PO (09:03)
[2023-06-03] MEDS: cloNIDine HCL 0.1 MG TABLET PO ×3 (09:03→21:56)
[2023-06-03] MEDS: QUEtiapine Fumarate 25 MG TABLET 75 MG PO ×3 (09:03→21:56)
[2023-06-03] MEDS: hydrOXYzine HCL 50 MG TABLET PO (12:04)
[2023-06-03] MEDS: QUEtiapine Fumarate 50 MG TABLET PO (12:04)
--- NOTE | 2023-06-03 13:27 | HO.PSYCHPN ---
Subjective Subjective Date of Service: 06/03/23 Reason For Visit: Unspecified depressive disorder, opioid use Subjective Notes: Conditional Voluntary Interim History: Reviewed with Dr. Tran. social with peers, calm, guarded. Pt stated, I'm doing good. I'm just waiting to leave here . medication compliant. Medication Compliance: Yes Side effects from medications: No Attending Groups: No Review of Systems Constitutional: Reports as per HPI Eyes: Reports as per HPI Reports as per HPI Cardiovascular: Reports as per HPI Respiratory: Reports as per HPI Gastrointestinal: Reports as per HPI Genitourinary: Reports as per HPI Musculoskeletal: Reports as per HPI Skin/Breast: Reports as per HPI Reports as per HPI Psychiatric: Reports as per HPI Endocrine: Reports as per HPI Hematologic/Lymphatic: Reports as per HPI Allergic/Immunologic: Reports as per HPI Mental Status Exam Mental Status Exam Narrative: Pt is alert and oriented; behavior is guarded; dressed in casual attire; mood is described as good ; eye contact appropriate; Speech is normal rate, volume and prosody and not pressured; thought process is organized; Thought content is on tx; denies SI/HI/VH/AH. Diagnostics Vital Signs (24Hr): Vital Signs - 24 hr 06/02/23 19:50 06/03/23 07:50 Temperature 97.2 F 98.2 F Pulse Rate 74 75 Respiratory Rate 18 16 Blood Pressure 120/59 L 107/59 L Pulse Oximetry 96 98 Oxygen Delivery Method Room Air Room Air BMI result Body Mass Index 28.1 Labs 05/24/23 11:24 Medications Medications Current Medications Acetaminophen (Acetaminophen 325 Mg Tablet) 650 mg PO Q6H PRN PRN Reason: Headache/Pain Mild Scale (1-3) Al Hydroxide/Mg Hydroxide (Magnesium Hydrox/Alum Hydrox 30 Ml Oral.Susp) 30 ml PO Q6H PRN PRN Reason: Heartburn/Nausea Clonidine HCl (Clonidine Hcl 0.1 Mg Tablet) 0.1 mg PO TID JAIME; Protocol Last Admin: 06/03/23 09:03 Dose: 0.1 mg Docusate Sodium (Docusate Sodium 100 Mg Capsule) 100 mg PO BID JAIME Last Admin: 06/03/23 09:03 Dose: Not Given Hydroxyzine HCl (Hydroxyzine Hcl 50 Mg Tablet) 50 mg PO Q6H PRN PRN Reason: Anxiety Last Admin: 06/03/23 12:04 Dose: 50 mg Ibuprofen (Ibuprofen 600 Mg Tablet) 600 mg PO Q6H PRN PRN Reason: Pain, Moderate(Pain Scale 4-6) Last Admin: 05/31/23 16:46 Dose: 600 mg Magnesium Hydroxide (Milk Of Magnesia 30 Ml Oral.Susp) 30 ml PO DAILY PRN PRN Reason: Constipation Methadone HCl (Methadone Hcl 20 Mg/2 Ml Oral.Conc) 140 mg PO DAILY JAIME Last Admin: 06/03/23 09:03 Dose: 140 mg Nicotine Polacrilex (Nicotine Polacrilex 2 Mg Gum) 4 mg BUCCAL Q1H PRN PRN Reason: Nicotine Cravings Last Admin: 05/30/23 12:40 Dose: 4 mg Quetiapine Fumarate (Quetiapine Fumarate 50 Mg Tablet) 50 mg PO BID PRN PRN Reason: agitation Last Admin: 06/03/23 12:04 Dose: 50 mg Quetiapine Fumarate (Quetiapine Fumarate 25 Mg Tablet) 75 mg PO TID JAIME Last Admin: 06/03/23 09:03 Dose: 75 mg Trazodone HCl (Trazodone Hcl 50 Mg Tablet) 50 mg PO BEDTIME MRX1 PRN PRN Reason: Insomnia Last Admin: 06/02/23 21:27 Dose: 50 mg Allergies Allergies Allergy/AdvReac Type Severity Reaction Status Date / Time No Known Allergies Allergy Unverified 02/03/20 15:50 [No Known Allergies*] Assessment & Plan Assessment & Plan (1) PTSD (post-traumatic stress disorder): Status: Acute Code(s): F43.10 - Post-traumatic stress disorder, unspecified (2) Depression: Status: Acute Code(s): F32.A - Depression, unspecified (3) Opioid dependence on agonist therapy: Status: Acute Code(s): F11.20 - Opioid dependence, uncomplicated Plan Presents with major depressive symptoms, trauma history and PTSD, substance use disorder, recent use and also on methadone maintenance. Significant psychosocial stressors. Has been without medications for the best part of 1 year and will therefore restart Seroquel, clonidine and Vistaril, which patient reports has been helpful in the past. 05/25: No changes to current plan 05/26: mood improved after regimen restarted. interested in [facility]. continue current mgmt, refer to [facility]. 05/27: increase seroquel 50 TID to 75 TID, otherwise continue current mgmt. referrals being placed with [facility]. 05/28: no requests or complaints. continue current mgmt. awaiting word on [facility]. stable. 05/29: no change from yesterday. sleeping better, mood improved. awaiting word from [facility]. 05/30: stable, improved from admission. continue current mgmt. 05/31 continue same treatment 06/01 continue same treatment 06/02: social with peers, calm, guarded. Pt reports feeling good today; pt stated, I plan on going to the [facility] after here . denies SI/HI/VH/AH. Continue current tx plan. 06/03: Continue current tx plan. Patient educated on: diagnosis and medication risk/benefits Informed Consent: understands Reason for continued inpatient stay Substantial Risk for: med/psych decompensation Time Spent With Patient Time: Total time managing care of this patient today _20___ minutes.
[2023-06-03 21:30] VITALS: BP 106/60; PULSE 79; RESP 18; TEMP 36.1; O2SAT 99
[2023-06-03] MEDS: traZODone HCL 50 MG TABLET PO (21:56)
[2023-06-04 07:45] VITALS: BP 104/62; PULSE 67; TEMP 36.5; O2SAT 98
[2023-06-04] MEDS: methADONE HCl 20 MG/2 ML ORAL.CONC 140 MG PO (09:22)
[2023-06-04] MEDS: QUEtiapine Fumarate 25 MG TABLET 75 MG PO ×3 (09:22→20:42)
[2023-06-04] MEDS: Docusate Sodium 100 MG CAPSULE PO (09:23)
[2023-06-04] MEDS: cloNIDine HCL 0.1 MG TABLET PO (09:23)
[2023-06-04 14:21] VITALS: BP 108/75; PULSE 80
[2023-06-04] MEDS: cloNIDine HCL 0.1 MG TABLET 0.15 MG PO ×2 (14:24→20:40)
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
[2023-06-04 20:30] VITALS: BP 101/60; PULSE 83; RESP 16; TEMP 36.7; O2SAT 96
[2023-06-04] MEDS: traZODone HCL 50 MG TABLET PO (20:42)
[2023-06-05] MEDS: QUEtiapine Fumarate 25 MG TABLET 75 MG PO (10:00)
[2023-06-05] MEDS: cloNIDine HCL 0.1 MG TABLET 0.15 MG PO (10:00)
[2023-06-05] MEDS: methADONE HCl 20 MG/2 ML ORAL.CONC 140 MG PO (10:01)
[2023-06-05 10:08] VITALS: BP 112/56; PULSE 95; RESP 18; TEMP 36.2; O2SAT 97
== END 2023-06-05 11:35 | disposition home or self-care (01) | DRG 754 ==
PROVIDERS: Clinical Nurse Specialist Psychiatric/Mental Health, Adult; Admitting Provider Psychiatry & Neurology Psychiatry; Visit Provider Psychiatry & Neurology Psychiatry
DX: F32.A Depression, unspecified (principal); F11.20 Opioid dependence, uncomplicated; F17.210 Nicotine dependence, cigarettes, uncomplicated; F43.12 Post-traumatic stress disorder, chronic; Z71.6 Tobacco abuse counseling; Z59.02 Unsheltered homelessness; Z79.899 Other long term (current) drug therapy
CPT/HCPCS: 36415; 80053; 80061; 82607; 82746; 83036; 83735; 84439; 84443

== ENCOUNTER → 2023-05-23 20:29 | Outpatient (BNV) | payer MEDICAID, SELFPAY | PROVIDERS: Admitting Provider Psychiatry & Neurology Psychiatry; Visit Provider Physician Assistant | DX: Z00.00 Encounter for general adult medical examination without abnormal findings (principal) | CPT/HCPCS: 99222 ==

== ENCOUNTER → 2023-05-23 20:29 | Outpatient (BNV) | payer OTHER, SELFPAY | PROVIDERS: Admitting Provider Psychiatry & Neurology Psychiatry; Visit Provider Psychiatry & Neurology Psychiatry | DX: F33.1 Major depressive disorder, recurrent, moderate (principal); F11.20 Opioid dependence, uncomplicated; F43.11 Post-traumatic stress disorder, acute | CPT/HCPCS: 99231; 99232 ==

== ENCOUNTER 2023-12-25 15:05 | Emergency (ER) | payer OTHER, SELFPAY ==
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
[2023-12-25 15:20] VITALS: RESP 20; BMI 32.5
[2023-12-25] MEDS: diphenhydrAMINE HCL 50 MG/ML VIAL IM (15:36)
[2023-12-25] MEDS: LORazepam 2 MG/ML VIAL IM (15:36)
[2023-12-25] MEDS: droPERidol 5 MG/2 ML VIAL 2.5 MG IM (15:36)
--- NOTE | 2023-12-25 15:49 | PC.NURSE ---
Pt came in through triage, reported to this RN that pt was displaying acts of self harm, hitting himself. Pt endorses SI, unclear about plan. Admits to crack/ cocaine use. Making bizarre statements, yelling.Hard to redirect. MD and security in pod. 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 Pt medicated per JUL with IMs, monitoring pt
[2023-12-25 16:04] VITALS: BP 118/82; PULSE 94; RESP 20; TEMP 37.1; O2SAT 94
--- NOTE | 2023-12-25 16:05 | PC.NURSE ---
Pt agrees to have vitals taken. Reports to RN that he used crack/cocaine, heroin and alcohol today. Does report self harm feelings and SI, no plan. Denies HI. Reports pain in bilat feet from scabs/ walking. Denies daily alcohol use or withdrawal seizures.
[2023-12-25 16:15] VITALS: RESP 18
[2023-12-25 16:45] VITALS: PULSE 70; RESP 16
--- OUTSIDE RECORDS SUMMARY | 2023-12-25 16:45 | XMS_ITS | Continuity of Care Document ---
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 Your feedback will be used to make improvements to the healthcare experiences of our patients and their families. Surveys are administered by [employer] ?? If further treatment with your primary care physician or another doctor is recommended, it is important for you to keep the appointment. Call your primary care physician or return to the Emergency Department immediately if your condition worsens, fails to improve, or new symptoms develop. If you need to find a doctor, you can call [facility] [employer] for a referral at [phone] or toll free at [phone]) or log in to [email or web address].. ?? [facility], in keeping with [facility] guidance, no longer requires face masks for staff, patientsor visitors in most situations. Similiar to time spent indoors at other locations, there is the chance that you were exposed to repiratory viruses during your time with us (such as flu or COVID-19). If you develop symptoms concerning for a viral respiratory infection, please seek testing (and treatment if indicated) from your medical provider or home test kit. ?? You can view and manage your care through the patient portal or by using a health care jabier of your choosing. [employer] is a website that allows you to securely view your medical information including your hospital discharge summary, office visit summaries, medications and follow-up visits. You can also request appointments, renew medications, and request access to your medical information using a health care jabier of your choosing, or just ask a question. You can enroll at [email or web address] or register during your next office visit. You have been discharged from [facility], Patient Care Unit: SW6??. If you have any questions regarding these instructions, including results of studies pending, afteryou leave, please call us and we will be happy to assist you 09/12. [facility] Your Care Team Attending Physician Marilyn MOROCHO MD, Adin T?? Consulting Providers Marilyn MOROCHO MD, Adin T?? Discharging Providers Ya Slaughter MD Your Diagnosis Hemothorax on left Tests Performed Below is a partial list of the tests performed during your hospitalization. You may have had other tests and procedures not included in this list. Please discuss all test results with your provider. Albumin Fluid?-- Results Pending -- Amylase Fluid?-- Results Pending -- Anaerobic Culture?-- Results Pending -- Anaerobic Result Body Fluid Culture Aer/Anaer/Gram Stain Body Fluid Culture Reflex BUN Calcium Ionized CBC w/ Differential Chylous Effusion?-- Results Pending -- Creatinine Electrolytes Fungal Culture, Non-Blood?-- Results Pending -- Glucose Fluid?-- Results Pending -- Glucose Level Gram Stain Result LDH Fluid?-- Results Pending -- Magnesium Level pH Fluid?-- Results Pending -- Phosphorus Level Protein Fluid?-- Results Pending -- Chest CT W/ Contrast CT Abd/Pelvis W/ IV Contrast Only CT Chest W/ IV Contrast XR Chest 2 Views Frontal and Lat XR Chest Portable You will be contacted within 72 hours with your results. Albumin Fluid?? Amylase Fluid?? Anaerobic Culture?? BUN?? CBC w/ Differential?? Chylous Effusion?? Creatinine?? Electrolytes?? Fungal Culture, Non-Blood?? Glucose Fluid?? Glucose Level?? Ionized Calcium (Calcium Ionized)?? LDH Fluid?? Magnesium Level?? Phosphorus Level?? Protein Fluid?? pH Fluid?? Primary Care Provider Not on Staff, PCP?? Advance Directive Health Care Proxy on File Yes - Health Care Proxy Discharge Vitals Temperature: 98.1 DegF Height: 167.64 cm Pulse Rate: 90 bpm Weight: 84.7 kg Respiratory Rate: 20 br/min Body Mass Index:??30.14 kg/m2??Critical Systolic Blood Pressure: 125 mm Hg Body surface area: 1.99 Diastolic Blood Pressure: 77 mm Hg ?? Oxygen Saturation: 94 % ?? Studies Pending All studies ordered during this hospital stay have been completed unless listed below. Please discuss all pending results with your provider listed above in these instructions. ?? Albumin Fluid?? Amylase Fluid?? Anaerobic Culture?? BUN?? CBC w/ Differential?? Chylous Effusion?? Creatinine?? Electrolytes?? Fungal Culture, Non-Blood?? Glucose Fluid?? Glucose Level?? Ionized Calcium (Calcium Ionized)?? LDH Fluid?? Magnesium Level?? Phosphorus Level?? Protein Fluid?? pH Fluid?? What to do next Instructions From Your Doctor You were hospitalized for a collection of fluid outside your lung. Fluid can accumulate in the chest after having broken ribs and needs to be drained because it can interfere with your ability to breath and cause infections. You had a chest tube inserted which drained over a liter of fluid from your chest. You were seen by physical therapy who recommended returning to rehab for your other injuries. You will follow up with our trauma clinic on October 14 and get a chest x-ray to make sure the fluid in your chest does not come back. You should take tylenol??every 6 hours for pain and use a lidocaine patch on your chest??every 12 hours for pain. If you are??still having pain,??you can take??gabapentin every??8 hours. If??you are still having pain??with??the gabapentin??added, you can take one oxycodone tablet every 3??hours for pain that is not controlled by tylenol, gabapentin, and the lidocaine patch.? Orders? 09/30/23 12:22:00 EDT?? Scheduled Follow-Up Appointments Friday. 2023 1:40 PM EDT ?? With: Heather ADRIAN, Rolando Page Where: [facility] [address] [place] [address]- Status: Pending Discharge Medications WOODY WEBSTER :1985 Visit Date:09/24/2023 Medications: Please continue your medications until treatment is completed or stopped by your provider. Medications not listed below should be discontinued. Discuss any questions related to medications with your provider. What How Much When Instructions Next Dose New Oxycodone (oxyCODONE 5 mg oral tablet) 5 Milligram Oral Every 3 hours as needed for Pain , Moderate Printed Prescription as needed Unchanged Acetaminophen (acetaminophen 325 mg oral tablet) 975 Milligram Oral Every 6 hours 6pm 09/30/23 Unchanged Clonidine (cloNIDine 0.1 mg oral tablet) 0.1 Milligram Oral 4 times a day as directed Unchanged Gabapentin (gabapentin 400 mg oral capsule) 400 Milligram Oral 3 times a day 3pm 09/30/23 Unchanged HydrOXYzine (hydrOXYzine hydrochloride 50 mg oral tablet) TAKE 1 TABLET BY MOUTH EVERY 6 HOURS NEEDED FOR ANXIETY ?? as needed Unchanged Lidocaine Topical (lidocaine 5% topical film) Topically Daily as directed Unchanged Methadone 175 Milligram Oral Daily 9am 10/01/23 Unchanged Mirtazapine (mirtazapine 30 mg oral tablet) 1 tab(s) Oral Daily at Bedtime 8pm 09/30/23 Unchanged Polyethylene Glycol 3350 (MiraLax Powder) 17 gram Oral Daily 9am 10/01/23 Unchanged Quetiapine (QUEtiapine 100 mg oral tablet) 100 Milligram Oral Daily at Bedtime 8pm 09/30/23 Unchanged Senna (Senna 8.6 mg oral tablet) 1 tab(s) Oral Daily 9am 10/01/23 Unchanged Trazodone (traZODone 50 mg oral tablet) 1 tab(s) Oral Daily at Bedtime 8pm 09/30/23 Unchanged Trazodone (traZODone 50 mg oral tablet) 1 tab(s) Oral Daily at Bedtime ?? What How Much When Comments Stop Taking Docusate (Colace sodium 100 mg oral capsule) 1 capsule Oral Twice a day Prescription Given During Visit Oxycodone (oxyCODONE 5 mg oral tablet) - 5 mg, By Mouth, Every 3 hours, # 12 tablet, 0 Refills?? Laboratory Results Below is a partial list of the most recent Laboratory test results done prior to this discharge. You may have had other tests and procedures not included in this list. Please discuss all test resultswith your provider. Est Creatinine Clearance - 110.22 mL/min (09/28/2023) Anaerobic Result (09/25/2023) ???Anaerobic Culture Isolate 1 - Comment Body Fluid Culture Aer/Anaer/Gram Stain (09/25/2023) ???Gram Stain Result - Final report???Anaerobic Cult, Extended Incub - Preliminary report???Body Fluid Culture Results - Final report???Body Fluid Specimen Source - Pleural fluid Body Fluid Culture Reflex (09/25/2023) ???Body Fluid Culture Isolate 1 - Comment BUN (09/28/2023) ???BUN - 15 mg/dL Calcium Ionized (09/28/2023) ???Calcium, Ionized pH Corrected - 1.22 mmol/L CBC w/ Differential (09/28/2023) ???WBC - 7.6 k/mm3???RBC - 4.38 m/mm3???Hgb - 11.5 Gm/dL???Hct - 37.0 %???MCV - 84.5 femtoliters???MCH - 26.3 pg???MCHC - 31.1 g/dL???Platelet Count - 549 k/mm3???RDW-SD - 44.5 femtoliters???MPV - 9.4 femtoliters???Nucleated RBC (Automated) - 0.0 #/100 WBC'S???Abs. NRBC - 0.0 k/mm3???Abs. Neut - 4.3 k/mm3???Abs. Lymph - 2.0 k/mm3???Abs. Collier - 0.8 k/mm3???Abs. Eo - 0.4 k/mm3???Abs. Baso - 0.0 k/mm3???Neut % - 57.3 %???Lymph % - 25.8 %???Collier % - 11.1 %???Eos % - 4.8 %???Baso % - 0.5 %???Imm Gran - 0.5 %???Abs. Imm Gran - 0.0 k/mm3 Creatinine (09/28/2023) ???Creatinine-Blood - 0.82 mg/dL???Estimated GFR Creatinine - 115 ML/MIN/1.73 M2 Electrolytes (09/28/2023) ???Sodium - 138 mmol/L???Potassium - 4.9 mmol/L???Chloride - 99 mmol/L???Bicarbonate Level - 25 mmol/L???Anion Gap - 14 Glucose Level (09/28/2023) ???Glucose Level - 147 mg/dL Gram Stain Result (09/25/2023) ???Gram Stain Isolate 1 - Comment???Gram Stain Isolate 2 - No organisms seen Magnesium Level (09/28/2023) ???Magnesium - 2.2 mg/dL Phosphorus Level (09/28/2023) ???Phosphorus - 4.9 mg/dL Allergies (NKA means No Known Allergies) NKA Problems Active Problems??(10) Cocaine abuse?? cocaine use?? IV drug user?? Marijuana use?? Moderate cocaine use disorder?? Obese class I?? Opioid abuse?? Opioid use disorder, severe, dependence?? Polysubstance abuse?? seizure disorder?? Education Materials Below is the list of Educational Leaflet Providered with your Discharge Instructions. [employer] Patient Education - Chest Tubes?? [employer] Patient Education - Pleural Effusion?? Valuables and Belongings I fully understand and agree that [facility] accepts no responsibility for all my personal property including clothing, toilet articles, radios, jewelry, dentures, hearing aids, rings, money, or any other property that is in my possession or is brought to me after admission. I understand certain valuables may be placed in a hospital safe for a short period of time. I understand that the hospital is not liable for loss or damage due to accident, fire, or other natural occurrence while said property is in the safe. I accept full responsibility for any personal property that I keep with me, and will not hold the hospital responsible in case of loss or disappearance. I acknowledge that i have been encouraged to send valuables and belongings home. ?? Review of Valuable and Belonging List: With patient, With witness Date for Pt to Sign Valuables/Belongings: 09/26/23 20:46:00 ?? Other Discharge Information ? Case Management Discharge Plan?? Discharge Plan?? Discharge Agency Information?? Discharge Level of Care at Discharge: custodial facility Agency [facility]1: Admissions Discharge Transportation Arranged: [facility] [address] [facility] [phone] Service Categories #1: Physical Therapy, Retirement Mode of Transportation Arranged: Chair Van Name of Person Notified of Transfer: Woody Webster Discharge Arranged Transport Date/Time: 09/30/23 14:00:00 Name of Receiving Clinician/Provider: A clinician will be assigned to you at the facility Discharge Nursing Homes/Rehab Facilities: [facility] Phone Number of Receiving Facility: [facility] ?? Pulmonary Rehab Status?? Pulmonary Rehab Discharge Status?? Respiratory Rate: 20 br/min ? Common Emergency Awareness Tips IS IT A STROKE? Act FAST and Check for these signs: FACE Does the face look uneven? ARM Does one arm drift down? SPEECH Does their speech sound strange? TIME Call at any sign of stroke ?? Heart Attack Signs Chest discomfort: Most heart attacks involve discomfort in the center of the chest and lasts more than a few minutes, or goes away and comes back. It can feel like uncomfortable pressure, squeezing, fullness or pain. Discomfort in upper body: Symptoms can include pain or discomfort in one or both arms, back, neck, jaw or stomach. Shortness of breath: With or without discomfort. Other signs: Breaking out in a cold sweat, nausea, or lightheaded. Remember, MINUTES DO MATTER. If you experience any of these heart attack warning signs, call to get immediate medical attention! ?? Smoking can increase your chances of developing chronic health problems and can cause harmful effects to other family members in your house. If you smoke, you are strongly encouraged to quit. Please call [facility] [employer] at [phone] or [phone]) or log in to [email or web address] for referrals to smoking cessation programs. ?? 135 Suicide & Crisis Lifeline is available 09/12 if you or someone you know needs to find a reason to keep living. By calling 473 you'll be connected to a skilled, trained counselor at a crisis center in your area. INPATIENT DISCHARGE INSTRUCTIONS SIGNATURE PAGE WOODY WEBSTER [facility]:[id number] Location:[facility] Registration Date and Time:09/24/2023 16:02 EDT Primary Care Physician: Not on Staff, PCP Attending Physician: Marilyn MOROCHO MD, Eran T, I WOODY WEBSTER, have received the above patient education materials/instructions and have verbalized understanding. If ambulance or transport services are being used I further acknowledge being given a choice of service. ?? If you need to contact me, please call me at this number: . Patient/Operator And Truck Driver Name: Patient/Operator And Truck Driver Signature: Relationship to Patient: Witness Name/Signature: Date: * Ya Slaughter MD: PERFORM Event Display: Patient Education Leaflets Authored Date: Chest Tubes ?? 16890 Chest Tubes Your lungs are each surrounded by two layers of membrane (pleura). The space between these layers is called the pleural space. Normally the pleural space has a tiny amount of fluid in it. But extra fluid, blood, pus, or air in the pleural space makes it hard for the lung to expand and makes breathing hard. A chest tube is a soft, flexible tube put into the pleural space that surrounds the lung. The tube doesn't go into the lung itself.??The tube drains blood, air, or extra fluid. The tube is inserted through a small cut (incision) in the skin. ?? Reasons for a chest tube You may need a chest tube: ??? After chest surgery or injury to the chest ??? To treat a lung infection or abscess. This is called an empyema. ??? To remove extra fluid from around the lung from other causes. This is called a pleural effusion. This might be from heart failure. ??? To treat collapsed lung (pneumothorax) ??? To treat bleeding into the chest (hemothorax) ?? Chest tube placement A chest tube is often placed during chest surgery while you???re in the operating room and still asleep (sedated). If you have a lung infection or other problem, you may have a chest tube placed while you???re awake in the emergency department,your hospital room, or in a radiology suite. The procedure takes less than 30 minutes. Here???s how it's done: ??? Medical staff takes your blood pressure,pulse, and temperature. ??? You lie on your side or sit in a semi- upright position. You will be asked to put one arm up over your head. ??? The healthcare provider injects pain medicine (anesthetic) to numb the area where the chest tube is placed. You may be given medicine to make you relax (sedation) or pain medicine. Sedation is given in an IV (intravenous) line in your hand or arm. ??? The provider makes a small incision in your side, chest, or back. They put a soft, flexible tube??into the incision site. The tube is guided between your ribs until it reaches the pleural space. The providermay use ultrasound imaging??or computed tomography (CT) to help place the tube correctly. ??? The provider may stitch the tube??to your skin to keep it in place. It will also be covered with an airtight bandage. The tubing will be taped to your body. This is to keep it from being pulled out by accident. ??? The tube is then connected to a drainage device. o A chest drainage unit pulls the extra fluid, blood, pus, or air from your chest. The device should be lower than your chest level and may be put on the floor. Some chest tubes??contain water and may make a bubbling sound while they are working. Other chest tubes will not make any sound at all. o A flutter valve is a small one-way valve. It's used if you have a collapsed lung??( pneumothorax). The lung collapsed??because of the collection of air in the pleural space. The valve is attached directly to the end of your chest tube. The valve opens to let air escape from the chest tube. It then closes to prevent air from going back in the tube. You may go home from the hospital with your chest tube attached to a flutter valve. Care forit as you are told. ??? You will have an X-ray after the procedure to help confirm that the tube isin the right place, and that the air and fluid have been drained. ?? While the tube is in place ??? The tube stays in place for as long as your healthcare provider thinks it's needed.??You??may be in the hospital until after the tube is removed. Sometimes you may be sent home with the chest tube still in place. If you are sent home with the chest tube in place, you will need home healthcare or a caregiver until it is removed. ??? You will be given pain medicine bymouth or by IV. You may have a patient-controlled analgesia ([employer] MEDICA[employer]) pump attached to the IV line. This lets you give yourself pain medicine, but it's programmed so you can't overdose.??You are usually sent home when you can take oral pain medicine and no longer need IV pain medicine. ??? You may need extra oxygen. This is given through a mouth mask or a flexible tube under your nose. You may also be connected to a small device called a pulse oximeter. It measures the amount of oxygen in your blood. It is placed on your finger, toe, or ear. ??? After the tube is placed, you can help with drainage by: o Breathing deeply o Coughing o Sitting upright o Moving and walking around if told to do so by your healthcare provider ??? You can reduce discomfort by holding a pillow tightly to your chest when you cough. ??? Your breathing and heart rate will be monitored. The tubing will be checked regularly. If blood is draining from your chest, the tubing will be checked for clots. If a clot appears,the tubing may be squeezed to move the clot out of the tube. If fluid is draining from your chest, it may be tested for signs of infection or other problems. You may need antibiotics to prevent or treat infection. ??? Tell a nurse right away if you have trouble breathing or chest, shoulder, or neckpain. ?? Risks and possible complications of chest tubes A chest tube can have some risks. But the benefits of having the tube usually outweigh the risks. Risks of a chest tube include: ??? Air leak ??? Infection ??? Bleeding ??? Reaction to anesthesia used during placement ??? Lung damage, and damage to other surrounding structures ??? Nerve damage to the area ? Caution! Don't pull on the tube or tip over the drainage container. This can cause serious breathing problems. If you pull on the tube or tip over the container, tell a nurse right away. You may be asked to exhale fully or take deep breaths while the tubing is checked. ?? Removing the chest tube When the air, blood, pus, or extra fluid is gone from the pleural space, your healthcare provider will remove??the tube. This may be done in your hospital bed. You may get more pain medicine before the tube is removed. As the tube is removed, you may be asked to inhale or exhale deeply and then hold your breath. After the tube is removed, the healthcare provider may close the incision??with stitches. Or the incision may be left to close by itself. The provider will put a??bandage??over the incision. You may have an X-ray after the tube is removed. This is to make sure your lung is still inflated. ?? Follow-up care After the tube is removed: ??? Follow up with the healthcare provider within 48 hours. You may haveanother X-ray. This is to check for fluid or air in your lung. The incision will be checked to makesure it's healing. The bandage may be replaced with a smaller adhesive bandage. You may change the bandage as often as needed. ??? Care for the insertion site(s) as directed. Keep the bandage in place for 48 hours. Keep it dry. ??? Until a scab has formed on the incision site, you may shower but not take a bath. When a scab has formed, you no longer need an adhesive bandage. After the incision has healed, you may have a small scar. ?? When to call the healthcare provider While the tube is in place and after it has been removed, call [facility] provider (or alert your nurse) right away if you have any of the following: Call 911 if you have any of these: ??? Trouble breathing ??? Chest pain that may spread to your shoulder or back ??? You cough up blood ??? Bluish color of the skin ??? Fainting ??? A feeling of anxiety or restlessness ??? Fast or irregular pulse Call your healthcare provider if you have any of these: ??? Fever??of??100.4??F (38??F)??or higher, chills, or as directed by your healthcare provider ??? Weakness or dizziness ??? Increasing pain, swelling, redness, warmth, bleeding, foul odor, or drainage at the chest tube site ?? Last Reviewed Date: 2021 ?? 0966-2600 [employer]. All rights reserved. This information is not intended as a substitute for professional medical care. Always follow your healthcare professional's instructions. ?? * Ya Slaughter MD: PERFORM Event Display: Patient Education Leaflets Authored Date: [id number] Pleural Effusion ?? [id number] Pleural Effusion The pleura is a smooth double membrane that surrounds the lungs. It separates the lungs from the chest wall. One side of the pleura attaches to the lung. The other side attaches to the chest wall. This membrane makes it easier for the chest to inflate and deflate as you breathe without rubbing against the ribs. You normally have a small amount of lubricating fluid (pleural fluid) between the pleural membranes. A pleural effusion is when too much fluid collects in the space between the two pleural membranes (pleural space). As the amount of fluid increases, it begins to press on the lung. This makes it harder to take a full breath. There are two types of pleural effusion: ??? Exudative. This is caused by extra fluid related to inflammation, injury, infection, or a tumor. Empyema is when pus builds up in the pleural space. ??? Transudative. This is caused by abnormal fluid pressures inside the blood vessels. The pressure can be caused by congestive heart failure (CHF). In CHF, extra fluid collects inside the lung tissues because of a weakened heart muscle. This extra fluid then leaks into the pleural space. Pleural effusion may cause any of these symptoms: ??? Shortness of breath ??? Rapid breathing ??? Cough or hiccups ??? Sharp chest pain that hurts more with coughing or deep breathing ??? Fever ??? Fatigue A small pleural effusion may cause no symptoms at all. Treatment will be directed at the cause of the pleural effusion. If you are having a lot of troublebreathing, the healthcare provider may do a thoracentesis procedure to remove the fluid from the pleural space. This involves placing a needle or tube (catheter) through the chest wall into the pleural space. This usually gives relief right away. But the fluid may gradually return, depending on thecause. You may be given antibiotics if your pleural effusion was caused by an infection. Home care Follow these guidelines when caring for yourself at home: ??? Rest until you feel better. Exerting yourself may make your symptoms worse. ??? Your healthcare provider may have prescribed medicines totreat the underlying cause of the pleural effusion. Take these exactly as directed. ?? Follow-up care Follow up with your healthcare provider, or as advised. ?? When to seek medical advice Call your healthcare provider right away if any of these occur: ??? Fever of 100.4??F (38??C) or higher, or as directed by your healthcare provider ??? Chills ??? Dry cough that doesn't get better with treatment ??? Generally not feeling well ??? Sudden inability to do daily activities ?? Call 911 Call 911 if any of the following occur: ??? Shortness of breath gets worse ??? Chest pain gets worse ??? Chest tightness or heaviness ??? Coughing up blood ??? Weakness, dizziness, or fainting ?? Last Reviewed Date: 2021 ?? 4193-3030 [employer]. All rights reserved. This information is not intended as a substitute for professional medical care. Always follow your healthcare professional's instructions. ?? Patient Care team information Care Team Personnel Name: Jazmín De Guzman RN Position: [facility] RN Member Role: Primary Care Nurse Name: Milton Gant RN Position: [facility] RN Member Role: Primary Care Nurse Name: Heather Martinez RN Position: [facility] HBO Wound Member Role: Primary Care Nurse Name: Nickie Awan RN Position: [facility] RN Member Role: Primary Care Nurse Name: Titus Mendez RN Position: [facility] RN Member Role: Primary Care Nurse Name: Charlene Rojas RN Position: [facility] RN Member Role: Primary Care Nurse Name: Terri Conway RN Position: [facility] RN Member Role: Primary Care Nurse Name: Juli Sheikh RN Position: [facility] RN Member Role: Primary Care Nurse Name: Adriana Orosco RN Position: [facility] RN Member Role: Primary Care Nurse Name: Trish Paredes RN Position: [facility] RN Member Role: Primary Care Nurse Name: Lenin Soares RN Position: [facility] RN Member Role: Primary Care Nurse Name: Jahaira Urban Position: [facility] RN Member Role: Primary Care Nurse Name: Dominique Alarcon RN Position: [facility] RN Member Role: Primary Care Nurse Name: Handy Blackman RN Position: [facility] RN Member Role: Primary Care Nurse Name: Nieves Patricia RN Position: [facility] RN Member Role: Primary Care Nurse Name: Georgia Lynne RN Position: [facility] RN Member Role: Primary Care Nurse Name: Bebeto Morales RN Position: [facility] RN Member Role: Primary Care Nurse Name: Shani De La Cruz RN Position: [facility] RN Member Role: Primary Care Nurse Name: April Boyd RN Position: [facility] RN Member Role: Primary Care Nurse Name: Not on Staff, PCP Position: [facility] Physician (General Medicine) Member Role: PCP Name: Kate Younger RN Position: [facility] RN Member Role: Primary Care Nurse Name: Sparkle Velasquez RNLatha Position: [facility] RN Member Role: Primary Care Nurse Name: Millie Mcarthur RN Position: [facility] RN Member Role: Primary Care Nurse Name: Elma Tang RN Position: [facility] RN Member Role: Primary Care Nurse Name: Ryland Paulson RN Position: [facility] ED RN W/OE and Tasks Member Role: Primary Care Nurse Name: Fouzia Mccray RN Position: [facility] RN Member Role: Primary Care Nurse Name: Marisa Escoto RN Position: [facility] RN Member Role: Primary Care Nurse Name: Alexandru Decker RN Position: [facility] RN Member Role: Primary Care Nurse Name: Nini Venegas RN Position: [facility] RN Member Role: Primary Care Nurse Name: Maris Lugo RN Position: [facility] RN Member Role: Primary Care Nurse Name: Karen Christiansen RN Position: [facility] RN Member Role: Primary Care Nurse Name: Herbert Garnica RN Position: [facility] RN Member Role: Primary Care Nurse Name: Anne Marie Castañeda RN Position: [facility] RN Member Role: Primary Care Nurse Name: Norman Carpenter RN Position: [facility] RN Member Role: Primary Care Nurse Care Team Related Persons Name: JAVIER JOHNSON Address: home [address] [place] [address] Name: ERASTO WEBSTER Address: home [address] [place] [address]
--- OUTSIDE RECORDS SUMMARY | 2023-12-25 16:46 | XMS_ITS | Continuity of Care Document ---
Author Organization [facility] Address [address] [place] [address] [address] [place] [address]- Care Team Providers Care Method Consultant Name Role Phone Not on Staff, PCP Primary Care Physician Unavail able [place] [facility] [place] - 10/01/[address] [place] [address]- Attending Physician: Not on Staff, Attending MD Allergies, Adverse Reactions, Alerts No Known [...] quantity. Start Date: 06/08/23 Status: Ordered gabapentin 400 mg oral capsule 400 mg, [...] opioid drug. Start Date: 06/12/23 Status: Ordered MiraLax Powder 1 pack/packet = 17 Gm, [...] dependence Confirmed Active Polysubstance abuse Confirmed Active Vital Signs Most recent to oldest [Reference Range]: 1 Height 177.8 cm (09/24/23 2:38 PM) Weight 87 kg (09/24/23 2:38 PM) Pulse Rate [55-90 bpm] 63 bpm (09/24/23 2:38 PM) Body Mass Index [18.5-24.99 kg/m2] 27.52 kg/m2 *H* (09/24/23 2:38 PM) Blood Pressure [90-138/55-84 mm Hg] 113/ 61mm Hg (09/24/23 2:38 PM) Respiratory Rate [16-30 br/min] 17 br/mi n (09/24/23 2:38 PM) Temperature [96.8-100.4 DegF] 97.1 DegF (09/24/23 2:38 PM) Blood pressure sites Arm, right (09/24/23 2:38 PM) Temperature Route Temporal (09/24/23 2:38 PM) Weight Obtained Via Patient/family state d (09/24/23 2:38 PM) Social History Social History Type Response Smoking Status 5-9 cigarettes (betw een 1/4 to 1/2 pack)/day in last 30 days; Interested in cessation: No entered on: 06/08/23 Sex Patient Care team information Care Team Personnel Name: Jazmín De Guzman RN Position: [facility] RN Member Role: Primary Care Nurse Name: Milton Gant RN Position: [facility] RN Member Role: Primary Care Nurse Name: Heather Martinez RN Position: [facility] HBO Wound Member Role: Primary Care Nurse Name: Nickie Awan RN Position: [facility] RN Member Role: Primary Care Nurse Name: Titus Mendez RN Position: [facility] RN Member Role: Primary Care Nurse Name: Charlene Rojas RN Position: [facility] RN Member Role: Primary Care Nurse Name: Terri Conway RN Position: [facility] RN Member Role: Primary Care Nurse Name: Juli Sheikh RN Position: [facility] RN Member Role: Primary Care Nurse Name: Adriana Orosco RN Position: [facility] RN Member Role: Primary Care Nurse Name: Trish Paredes RN Position: [facility] RN Member Role: Primary Care Nurse Name: Lenin Soares RN Position: [facility] RN Member Role: Primary Care Nurse Name: Jahaira Urban Position: [facility] RN Member Role: Primary Care Nurse Name: Dominique Alarcon RN Position: [facility] RN Member Role: Primary Care Nurse Name: Handy Blackman RN Position: [facility] RN Member Role: Primary Care Nurse Name: Nieves Patricia RN Position: [facility] RN Member Role: Primary Care Nurse Name: Georgia Lynne RN Position: [facility] RN Member Role: Primary Care Nurse Name: Bebeto Morales RN Position: [facility] RN Member Role: Primary Care Nurse Name: Shani De La Cruz RN Position: [facility] RN Member Role: Primary Care Nurse Name: April Boyd RN Position: [facility] RN Member Role: Primary Care Nurse Name: Not on Staff, PCP Position: [facility] Physician (General Medicine) Member Role: PCP Name: Kate Younger RN Position: [facility] RN Member Role: Primary Care Nurse Name: Latha Sevilla RN Position: [facility] RN Member Role: Primary Care Nurse Name: Millie Mcarthur RN Position: [facility] RN Member Role: Primary Care Nurse Name: Elma Tang RN Position: [facility] RN Member Role: Primary Care Nurse Name: Ryland Paulson RN Position: [facility] ED RN W/OE and Tasks Member Role: Primary Care Nurse Name: Fouzia Mccray RN Position: [facility] RN Member Role: Primary Care Nurse Name: Marisa Escoto RN Position: [facility] RN Member Role: Primary Care Nurse Name: Alexandru Decker RN Position: [facility] RN Member Role: Primary Care Nurse Name: Nini Venegas RN Position: [facility] RN Member Role: Primary Care Nurse Name: Maris Lugo RN Position: S RN Member Role: Primary Care Nurse Name: Karen Christiansen RN Position: [facility] RN Member Role: Primary Care Nurse Name: Herbert Garnica RN Position: [facility] RN Member Role: Primary Care Nurse Name: Anne Marie Castañeda RN Position: [facility] RN Member Role: Primary Care Nurse Name: Norman Carpenter RN Position: [facility] RN Member Role: Primary Care Nurse Care Team Related Persons Name: JAVIER JOHNSON Address: home [address] [place] [address] Name: ERASTO ERVIN Address: home [address] [place] [address]
--- OUTSIDE RECORDS SUMMARY | 2023-12-25 16:46 | XMS_ITS | Continuity of Care Document ---
Author Organization [facility] Address [address] [place] [address] [address] [place] [address]- Care Team Providers Care Traveling Clerk Name Role Phone Not on Staff, PCP Primary Care Physician Unavail able Encounter [facility] Date(s): 10/15/23 - 11/14/[address] [place] [address]- Attending Physician: Collins Brown Admitting Physician: Collins Brown Referring Physician: AdmtrCollins Allergies, Adverse Reactions, Alerts No Known Allergies [...] opioid drug. Start Date: 09/03/23 Status: Ordered QUEtiapine 100 mg oral tablet [...] opioid drug. Start Date: 09/10/23 Status: Ordered tiZANidine 4 mg oral capsule 2 capsule = 8 mg, By Mouth, 3 times a day, 0 Refills, Maintenance, 10/15/23 13:09:00 EDT, Partial fill upon patient request if the prescription is for a schedule II opioid drug. Start Date: 10/15/23 Status: Ordered traZODone 50 mg oral tablet [...] dependence Confirmed Active Polysubstance abuse Confirmed Active Social History Social History Type Response Smoking Status 5-9 cigarettes (betw een 1/4 to 1/2 pack)/day in last 30 days; Interested in cessation: No entered on: 06/08/23 Sex Patient Care team information Care Team Personnel Name: Jazmín De Guzman RN Position: [facility] RN Member Role: Primary Care Nurse Name: Milton Gant RN Position: [facility] RN Member Role: Primary Care Nurse Name: Heather Martinez RN Position: [facility] HBO Wound Member Role: Primary Care Nurse Name: Nickie Awan RN Position: [facility] RN Member Role: Primary Care Nurse Name: Titus Mendez RN Position: [facility] RN Member Role: Primary Care Nurse Name: Charlene Rojas RN Position: [facility] RN Member Role: Primary Care Nurse Name: Terri Conway RN Position: [facility] RN Member Role: Primary Care Nurse Name: Juli Sheikh RN Position: [facility] RN Member Role: Primary Care Nurse Name: Adriana Orosco RN Position: [facility] RN Member Role: Primary Care Nurse Name: Trish Paredes RN Position: [facility] RN Member Role: Primary Care Nurse Name: Lenin Soares RN Position: [facility] RN Member Role: Primary Care Nurse Name: Jahaira Urban RN Position: [facility] RN Member Role: Primary Care Nurse Name: Dominique Alarcon RN Position: [facility] RN Member Role: Primary Care Nurse Name: Handy Blackman RN Position: [facility] RN Member Role: Primary Care Nurse Name: Nieves Patricia RN Position: [facility] RN Member Role: Primary Care Nurse Name: Georgia Lynne RN Position: [facility] RN Member Role: Primary Care Nurse Name: Bebeto Morales RN Position: [facility] RN Member Role: Primary Care Nurse Name: Shani De La Cruz RN Position: [facility] RN Member Role: Primary Care Nurse Name: Ayde Boyd RN Position: [facility] RN Member Role: Primary Care Nurse Name: Not on Staff, PCP Position: [facility] Physician (General Medicine) Member Role: PCP Name: Kate Younger RN Position: [facility] RN Member Role: Primary Care Nurse Name: Latha Sevilla RN Position: [facility] RN Member Role: Primary Care Nurse Name: Millie Mcarthur RN Position: [facility] RN Member Role: Primary Care Nurse Name: Elma Tang RN Position: [facility] RN Member Role: Primary Care Nurse Name: Ryland Paulson RN Position: [facility] ED RN W/OE and Tasks Member Role: Primary Care Nurse Name: Fouzia Mccray RN Position: [facility] RN Member Role: Primary Care Nurse Name: Marisa Escoto RN Position: [facility] RN Member Role: Primary Care Nurse Name: Alexandru Decker RN Position: [facility] RN Member Role: Primary Care Nurse Name: Nini Venegas RN Position: [facility] RN Member Role: Primary Care Nurse Name: Maris Lugo RN Position: [facility] RN Member Role: Primary Care Nurse Name: Karen Christiansen RN Position: [facility] RN Member Role: Primary Care Nurse Name: Herbert Garnica RN Position: [facility] RN Member Role: Primary Care Nurse Name: Anne Marie Castañeda RN Position: [facility] RN Member Role: Primary Care Nurse Name: Nroman Carpenter RN Position: [facility] RN Member Role: Primary Care Nurse Care Team Related Persons Name: JOHNSON JAVIER Address: home [address] [place] [address] Name: ERASTO ERVIN Address: home [address] [place] [address]
--- OUTSIDE RECORDS SUMMARY | 2023-12-25 16:46 | XMS_ITS | Continuity of Care Document ---
Author Organization [facility] Address [address] [place] [address] [address] [place] [address]- Care Team Providers Care Software Consultant Name Role Phone Not on Staff, PCP Primary Care Physician Unavail able Encounter [facility] [place] Date(s): 10/15/23 - 10/22/[address] [place] [address]- Attending Physician: Not on Staff, Attending MD [...] recent to oldest [Reference Range]: 1 Height 167.64 cm (10/15/23 1:10 PM) Pulse Rate [55-90 bpm] 70 bpm (10/15/23 1:10 PM) Blood Pressure [90-138/55-84 mm Hg] 109/ 74mm Hg (10/15/23 1:10 PM) Temperature [96.8-100.4 DegF] 97.1 DegF (10/15/23 1:10 PM) Blood pressure sites Arm, right (10/15/23 1:10 PM) Temperature Route Temporal (10/15/23 1:10 PM) Social History Social History Type Response Smoking Status 5-9 cigarettes (betw een 1/4 to 1/2 pack)/day in last 30 days; Interested in cessation: No entered on: 06/08/23 Sex Patient Care team information Care Team Personnel Name: Jazmín De Guzman RN Position: [facility] RN Member Role: Primary Care Nurse Name: Milton Gant RN Position: [facility] RN Member Role: Primary Care Nurse Name: Heather Martinez RN Position: [facility] HBO Wound Member Role: Primary Care Nurse Name: Nickie Awan RN Position: [facility] RN Member Role: Primary Care Nurse Name: Titus Mendez RN Position: [facility] RN Member Role: Primary Care Nurse Name: Charlene Rojas RN Position: [facility] RN Member Role: Primary Care Nurse Name: Terri Conway RN Position: [facility] RN Member Role: Primary Care Nurse Name: Juli Sheikh RN Position: [facility] RN Member Role: Primary Care Nurse Name: Adriana Orosco RN Position: [facility] RN Member Role: Primary Care Nurse Name: Trish Paredes RN Position: [facility] RN Member Role: Primary Care Nurse Name: Lenin Soares RN Position: [facility] RN Member Role: Primary Care Nurse Name: Jahaira Urban Position: [facility] RN Member Role: Primary Care Nurse Name: Dominique Alarcon RN Position: [facility] RN Member Role: Primary Care Nurse Name: Handy Blackman RN Position: [facility] RN Member Role: Primary Care Nurse Name: Nieves Patricia RN Position: [facility] RN Member Role: Primary Care Nurse Name: Georgia Lynne RN Position: [facility] RN Member Role: Primary Care Nurse Name: Bebeto Morales RN Position: [facility] RN Member Role: Primary Care Nurse Name: Shani De La Cruz RN Position: [facility] RN Member Role: Primary Care Nurse Name: April Boyd RN Position: [facility] RN Member Role: Primary Care Nurse Name: Not on Staff, PCP Position: [facility] Physician (General Medicine) Member Role: PCP Name: Kate Younger RN Position: [facility] RN Member Role: Primary Care Nurse Name: Latha Sevilla RN Position: [facility] RN Member Role: Primary Care Nurse Name: Millie Mcarthur RN Position: [facility] RN Member Role: Primary Care Nurse Name: Elma Tang RN Position: [facility] RN Member Role: Primary Care Nurse Name: Ryland Paulson RN Position: [facility] ED RN W/OE and Tasks Member Role: Primary Care Nurse Name: Fouzia Mccray RN Position: [facility] RN Member Role: Primary Care Nurse Name: Marisa Escoto RN Position: [facility] RN Member Role: Primary Care Nurse Name: Alexandru Decker RN Position: [facility] RN Member Role: Primary Care Nurse Name: Nini Venegas RN Position: [facility] RN Member Role: Primary Care Nurse Name: Maris Lugo RN Position: [facility] RN Member Role: Primary Care Nurse Name: Karen Christiansen RN Position: [facility] RN Member Role: Primary Care Nurse Name: Herbert Garnica RN Position: [facility] RN Member Role: Primary Care Nurse Name: Anne Marie Castañeda RN Position: [facility] RN Member Role: Primary Care Nurse Name: Norman Carpenter RN Position: [facility] RN Member Role: Primary Care Nurse Care Team Related Persons Name: JAVIER JOHNSON Address: [address] [place] [address] Name: ERASTO ERVIN Address: home [address] [place] [id number]
--- OUTSIDE RECORDS SUMMARY | 2023-12-25 16:46 | XMS_ITS | Continuity of Care Document ---
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 PCP Follow-Up/Heads-Up p/w intentional toxic overdose, given narcan, poison control contact recommened q2h EKG for QTc prolongation and bradycardia. given suicide attempt, patient seen by psych, will be admitted to inpatient psych Seroquel increased to 100mg daily at bedtime on??methadone 150mg inpatient Hospital Course Patient is a 37-year-old male with known history of polysubstance use disorder on methadone, presented with altered mental status in the setting of intentional toxic ingestion of clonidine, s/p narcan with improvement, initially on intercare due to sinus bradycardia and QTc prolongation and then downgraded to acute floor with telemetry, where he was clinically stable. Patient was seen by addiction medicine who recommended resuming methadone. Additionally, due to suicide attempt via drug overdose, patient was seen by psychiatry, who recommended 1:1 sitter and possible inpatient psychiatric admission. On day of discharge patient is hemodynamically stable and medically cleared for inpatient psychiatry admission. ?? Metabolic encephalopathy - improving Suicidal ideation S/p intentional toxic ingestion of clonidine Hx of opioid use disorder on methadone EtOH use disorder Cocaine use disorder THC use disorder Patient presented in the setting of known toxic ingestion of clonidine, endorsed fentanyl, heroin, trazodone, other drug use. Patient was altered presentation, requiring Narcan. Utox + for cocaine, THC, fentanyl, negative for opioids, alcohol and ASA Poison control consulted and recommended q2h EKGs, repeat EKGs show stable QTc, Spoke to poison control no longer rec q2h EKGs, no other recs at this time Patient AOx3, endorsing SI and is paranoid. 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 Patient reports he was on methadone 140mg daily prior to admission, addiction medicine able to confirm dose of methadone at [facility] [place], and rec clonidine, vistaril and flexiril as prns Psych will accept patient for inpatient psych admission, looking for bed at this time. Will continue with home trazodone, Vistaril. Will continue with seroquel 100mg qHS. And will continue with methadone 150mg daily. Patient is medically clear, and ready for possible inpatient psych admission Plan: ??- Continue 1:1 and suicide precautions ??-??Medically clear, possible inpatient psych admission ??- prn clonidine 0.1mg q8h, Flexeril 10mg TID available ??- continue home Vistaril 50mg q6h ??- continue home trazodone 50mg at night ??- methadone 150mg ??- Seroquel 100mg qHS ?? Sinus bradycardia - improving Prolonged QTC - improved ??Known symptom of clonidine overdose ??QTC at it's longest was 494, downtrended to 472 ??Sinus bradycardia improving, HR in 50-60s ?? Transaminitis - improving ??Elevated on presentation to 106/76, with ALP of 216, downtrending. PCP to follow up on LFTs ?? Objective Measurements?? Height: 168 cm (06/13/23) Weight: 83.4 kg (06/09/23) Dry Weight: 83.4 kg (06/09/23) Body Mass Index:??29.55 kg/m2??High (06/09/23) ? Vital Signs?? Temperature: 97.8 DegF (06/13/23 05:49:00) Temperature Route: Oral (06/13/23 05:49:00) Pulse Rate: 90 bpm (06/13/23 05:49:00) Respiratory Rate: 20 br/min (06/13/23 05:49:00) Systolic Blood Pressure:??139 mm Hg??High (06/13/23 05:49:00) Diastolic Blood Pressure: 78 mm Hg (06/13/23 05:49:00) Blood pressure sites: Arm, right (06/13/23 05:49:00) Mean Arterial Pressure: 98 mm Hg (06/13/23 05:49:00) Pulse Pressure: 61 mm Hg (06/13/23 05:49:00) Oxygen Saturation: 96 % (06/13/23 05:49:00) Mode of Delivery (Oxygen): Room air (06/13/23 05:49:00) Early Warning Score: 2 (06/13/23 07:15:19) ? . Physical Exam Constitutional: Alert, in no distress. Mental Status: Oriented to person, place and time. Respiratory: Clear to auscultation. No wheezing, rales or rhonchi. Cardiovascular: S1 S2 regular. No murmurs, rubs or gallops. Gastrointestinal: Abdomen soft, non-tender, non-distended. Normal bowel sounds.?? Neurologic:?? No focal neurological deficits.?? Musculoskeletal:No gross deformities.?? Consultants Psychiatry Patient Education Titles Drug Abuse?? Follow-Up Appointments Added Follow Up ?Time Frame ?Comments Not on Staff, PCP?1 week?F/U on alcohol and substance abuse, depression Patient Instructions You were admitted to the hospital for overdose on medications.? Seroquel dose increased to 100mg daily Please continue your home medications as prescribed Please follow up with PCP for further??management of??alcohol??use and??depression Suicide??Hotline??Number: [phone]?? Last Methadone??dose??06/13/2023, dose??150mg ?? If symptoms worsen or new symptoms develop, please seek medical attention. If you do not have a PCP, please call the [facility] PCP hotline [phone]. Results Discharge Labs BLOOD COUNT & DIFF WBC 6.1 k/mm3 ()?? 06/12/2023 01:05 RBC 5.01 m/mm3 ()?? 06/12/2023 01:05 Hgb 14.6 Gm/dL ()?? 06/12/2023 01:05 Hct 44.7 % ()?? 06/12/2023 01:05 MCV 89.2 femtoliters ()?? 06/12/2023 01:05 MCH 29.1 pg ()?? 06/12/2023 01:05 MCHC 32.7 g/dL (Low)?? 06/12/2023 01:05 Platelet Count 250 k/mm3 ()?? 06/12/2023 01:05 RDW-SD 42.4 femtoliters ()?? 06/12/2023 01:05 MPV 11.0 femtoliters ()?? 06/12/2023 01:05 Nucleated RBC (Automated) 0.0 #/100 WBC'S ()?? 06/12/2023 01:05 Abs. NRBC 0.0 k/mm3 ()?? 06/12/2023 01:05 Abs. Neut 4.5 k/mm3 ()?? 06/09/2023 06:35 Abs. Lymph 2.4 k/mm3 ()?? 06/09/2023 06:35 Abs. [place] 0.7 k/mm3 ()?? 06/09/2023 06:35 Abs. Eo 0.1 k/mm3 ()?? 06/09/2023 06:35 Abs. Baso 0.0 k/mm3 ()?? 06/09/2023 06:35 Neut % 58.6 % ()?? 06/09/2023 06:35 Lymph % 31.2 % ()?? 06/09/2023 06:35 [place] % 8.5 % ()?? 06/09/2023 06:35 Eos % 0.9 % ()?? 06/09/2023 06:35 Baso % 0.4 % ()?? 06/09/2023 06:35 Imm Gran 0.4 % ()?? 06/09/2023 06:35 Abs. Imm Gran 0.0 k/mm3 ()?? 06/09/2023 06:35 ?? CARDIAC CK, Total 379 units/L (High)?? 06/09/2023 06:35 CK MB Confirmation - Quant 2.7 ng/mL ()?? 06/09/2023 06:35 ?? CHEM GENERAL Sodium 138 mmol/L ()?? 06/12/2023 01:06 Potassium 4.7 mmol/L ()?? 06/12/2023 01:06 Chloride 101 mmol/L ()?? 06/12/2023 01:06 Bicarbonate Level 26 mmol/L ()?? 06/12/2023 01:06 Anion Gap 11 ()?? 06/12/2023 01:06 Glucose Level 89 mg/dL ()?? 06/12/2023 01:06 Glucose, POC 118 mg/dL (High)?? 06/08/2023 15:58 BUN 14 mg/dL ()?? 06/12/2023 01:06 Creatinine-Blood 1.0 mg/dL ()?? 06/12/2023 01:06 Estimated GFR Creatinine 99 ML/MIN/1.73 M2 ()?? 06/12/2023 01:06 Calcium 9.5 mg/dL ()?? 06/12/2023 01:06 Phosphorus 3.6 mg/dL ()?? 06/11/2023 04:15 Magnesium 2.1 mg/dL ()?? 06/11/2023 04:15 Protein, Total 6.7 Gm/dL ()?? 06/12/2023 01:06 Albumin 4.1 Gm/dL ()?? 06/12/2023 01:06 AG Ratio 1.6 ()?? 06/12/2023 01:06 Alkaline Phosphatase 186 units/L (High)?? 06/12/2023 01:06 AST (SGOT) 51 units/L (High)?? 06/12/2023 01:06 ALT (SGPT) 52 units/L (High)?? 06/12/2023 01:06 Bilirubin, Total 0.2 mg/dL ()?? 06/12/2023 01:06 Bilirubin, Direct <0.2 mg/dL ()?? 06/10/2023 08:01 Bilirubin, Indirect Direct bilirubin is less than the measureable limit. Therefore, indirect mg/dL ()?? 06/10/2023 08:01 Lactate 0.9 mmol/L ()?? 06/09/2023 06:35 ? COAG INR 1.0 ()?? 06/09/2023 06:35 Protime (PT) 11.2 seconds ()?? 06/09/2023 06:35 ?? ENDOCRINE/TUMOR MARKER TSH 2.00 uIU/mL ()?? 06/08/2023 15:25 ? HEME OTHER Hold Blue Top SPECIMEN DISCARDED AFTER 4 HOURS. ()?? 06/08/2023 15:25 ? MISC. CHEMISTRY Hold Green Top SPECIMEN DISCARDED AFTER 1 WEEK ()?? 06/09/2023 06:35 ? TOXICOLOGY/TDM Ethanol, Serum or Plasma NONE DETECTED mg/dL ()?? 06/08/2023 15:25 Salicylate Level <0.3 mg/dL (Low)?? 06/08/2023 15:25 Barbiturate Screen, Urine NONE DETECTED ()?? 06/09/2023 18:36 Cannabinoid Screen, Urine POSITIVE (Abnormal)?? 06/09/2023 18:36 Cocaine Metabolite Screen, Urine POSITIVE (Abnormal)?? 06/09/2023 18:36 Benzodiazepine Screen, Urine NONE DETECTED ()?? 06/09/2023 18:36 Amphetamine Screen, Urine NONE DETECTED ()?? 06/09/2023 18:36 Opiate Screen, Urine NONE DETECTED ()?? 06/09/2023 18:36 Acetaminophen Level <5 mg/L (Low)?? 06/08/2023 15:25 Fentanyl Screen, Urine Result POSITIVE (Abnormal)?? 06/09/2023 18:36 ?? URINE OTHER Est Creatinine Clearance 91.74 mL/min ()?? 06/12/2023 02:38 ? VIROLOGY Influenza A PCR NEGATIVE ()?? 06/08/2023 18:10 Influenza B PCR NEGATIVE ()?? 06/08/2023 18:10 RSV PCR NEGATIVE ()?? 06/08/2023 18:10 COVID-19 PCR Specimen Source NASAL ()?? 06/08/2023 18:10 COVID-19 PCR Result NEGATIVE ()?? 06/08/2023 18:10 ? Microbiology ?? COVID-19, RSV, and Flu A/B, Rapid PCR?? Completed?? Source: Nasopharyngeal Body Site: Nasopharyngeal Collected Dt/Tm: 06/08/2023 15:35 Last Updated Dt/Tm: 06/08/2023 19:37 ? Patient??discussed with??Chief Resident ?? Omar Mclain, DO Internal Medicine, PGY-1 Pager [phone] 30??minutes spent on discharge * Abdullahi QUARLES, Maribell Leggett: PERFORM Event Display: Patient Education/Instruction Authored Date: [id number] Inpatient Adult Discharge Instructions [address] [address] Name: WOODY WEBSTER : 1985 Visit: 06/08/2023 18:57:00 Current Date: 06/13/2023 08:16 Account: [id number] Inpatient Adult Discharge Instructions We would like [...] and their families. Surveys are administered by [email or web address] ?? If further treatment with your primary care physician or another doctor is recommended, it is important for you to keep the appointment. Call your primary care physician or return to the Emergency Department immediately if your condition worsens, fails to improve, or new symptoms develop. If you need to find a doctor, you can call [facility] GeoPage Link for a referral at [phone] or toll free at [phone] or log in to [email or web address].. ?? [facility], in keeping with [facility] guidance, no longer requires face masks for [...] a health care jabier of your choosing. [employer] is a website that allows you to securely view your medical information including your hospital discharge summary, office visit summaries, medications and follow-up visits. You can also request appointments, renew medications, and request access to your medical information using a health care jabier of your choosing, or just ask a question. You can enroll at [email or web address] or register during your next office visit. You have been discharged from [facility], Patient Care Unit: S3. If you have any questions regarding these instructions after you leave, please call us and we will be happy to assist you. [facility] Your Care Team Attending Physician Rizwana SAGASTUME, Thais Consulting Providers Michael SAGASTUME, Faith Discharging Providers Omar Mclain DO Reason for Admission OVERDOSE SI Your Diagnosis Clonidine overdose Opioid overdose Polysubstance abuse Cocaine abuse Opioid abuse IV drug user Suicide attempt Toxic metabolic encephalopathy Transaminitis Severe opioid use disorder on maintenance therapy Cocaine use disorder, moderate, dependence Tobacco dependence Marijuana use, episodic Tests Performed Below is a partial list of the tests performed during your hospitalization. You may have had other tests and procedures not included in this list. Please discuss all test results with your provider. Acetaminophen Level Amphetamine Urine Screen Aspirin Level Barbiturate Urine Screen Basic Metabolic Panel Benzodiazepine Urine Screen Cannabinoid Urine Screen CBC CBC w/ Differential CKMB CONFIRMATION/QUANT Cocaine Urine Screen Comprehensive Metabolic Panel COVID-19, RSV, and Flu A/B, Rapid PCR CPK w/ Reflex CKMB Ethanol Level FENTANYL SCREEN, URINE GLUCOSE POC Hepatic Function Panel HOLD BLUE TUBE HOLD GREEN TUBE INR Lactate Level Liver Function Panel Magnesium Level Opiate Screen Urine Phosphorus Level TSH with T4 Reflex (Adults Only) Primary Care Provider Not on Staff, PCP Advance Directive Health Care Proxy on File Yes - Health Care Proxy Patient has a Designated Caregiver: No Discharge Vitals Temperature: 97.9 DegF Height: 168 cm Pulse Rate:??119 bpm??High Weight: 83.4 kg Respiratory Rate: 20 br/min Body Mass Index:??29.55 kg/m2??High Systolic Blood Pressure: 127 mm Hg Body surface area: 1.97 Diastolic Blood Pressure:??93 mm Hg??High ?? Oxygen Saturation: 97 % ?? Studies Pending All tests and labs ordered during this hospital stay have been completed unless listed below. Please discuss all pending results with your provider listed above in these instructions. ?? Add On Lab Order What to do next Instructions From Your Doctor You were admitted to the hospital for overdose on medications.? Seroquel dose increased to 100mg daily Please continue your home medications as prescribed Please follow up with PCP for further??management of??alcohol??use and??depression Suicide??Hotline??Number: [phone]?? Last Methadone??dose??06/13/2023, dose??150mg ?? If symptoms worsen or new symptoms develop, please seek medical attention. If you do not have a PCP, please call the [facility] PCP hotline [phone]. Discharge Orders You Need to Schedule the Following Appointments Follow Up with??Not on Staff, PCP When:??Within 1 week Why: F/U on alcohol and substance abuse, depression Discharge Medications WOODY WEBSTER :1985 Visit Date:06/08/2023 Medications: Please continue your medications until treatment is completed or stopped by your provider. Medications not listed below should be discontinued. Discuss any questions related to medications with your provider. What How Much When Instructions Next Dose Changed Clonidine (cloNIDine 0.1 mg oral tablet) 0.1 Milligram Oral 4 times a day 06/13 today at 1pm Changed Methadone 150 Milligram Oral Daily 06/14 tomorrow morning Changed Quetiapine (QUEtiapine 100 mg oral tablet) 100 Milligram Oral Daily at Bedtime 06/13 tonight Changed Trazodone (traZODone 50 mg oral tablet) 1 tab(s) Oral Daily at Bedtime 06/13 tonight Unchanged HydrOXYzine (hydrOXYzine hydrochloride 50 mg oral tablet) TAKE 1 TABLET BY MOUTH EVERY 6 HOURS NEEDED FOR ANXIETY ?? as needed ?? What How Much When Comments Stop Taking Ascorbic Acid (ascorbic acid 250 mg oral tablet) 1 tab(s) Oral Two times a day with meals Stop Taking Cholecalciferol (cholecalciferol 1000 intl units oral tablet) 1 tab(s) Oral Daily Duration: 30 Days Stop Taking Divalproex Sodium (divalproex sodium 250 mg oral tablet, extended release) 5 tab(s) Oral Daily at Bedtime Duration: 30 Days Stop Taking Folic Acid (folic acid 1 mg oral tablet) 1 tab(s) Oral Daily Stop Taking Gabapentin (Neurontin 300 mg oral capsule) 2 capsule Oral 3 times a day Stop Taking Multivitamin With Minerals (multivitamin with minerals Multiple Vitamins with Minerals oral tablet) 1 tab(s) Oral Daily Duration: 21 Days Stop Taking Oxycodone (oxyCODONE 5 mg oral tablet) 1 tab(s) Oral Daily as needed for Pain , Moderate Stop Taking Venlafaxine (venlafaxine 150 mg oral capsule, extended release) 1 capsule Oral Daily Test Results Below is a partial list of the most recent Laboratory test results done prior to this discharge. You may have had other tests and procedures not included in this list. Please discuss all test resultswith your provider. Est Creatinine Clearance - 91.74 mL/min (06/12/2023) Acetaminophen Level (06/08/2023) ? ?Acetaminophen Level - <5 mg/L Amphetamine Urine Screen (06/09/2023) ???Amphetamine Screen, Urine - NONE DETECTED Aspirin Level (06/08/2023) ? ?Salicylate Level - <0.3 mg/dL Barbiturate Urine Screen (06/09/2023) ???Barbiturate Screen, Urine - NONE DETECTED Basic Metabolic Panel (06/10/2023) ???Sodium - 134 mmol/L???Potassium - 4.4 mmol/L???Chloride - 98 mmol/L???Bicarbonate Level - 27 mmol/L???Anion Gap - 9???Glucose Level - 136 mg/dL???BUN - 11 mg/dL???Creatinine-Blood - 0.8 mg/dL???Estimated GFR Creatinine - 118 ML/MIN/1.73 M2???Calcium - 9.2 mg/dL Benzodiazepine Urine Screen (06/09/2023) ???Benzodiazepine Screen, Urine - NONE DETECTED Cannabinoid Urine Screen (06/09/2023) ???Cannabinoid Screen, Urine - POSITIVE CBC (06/12/2023) ???WBC - 6.1 k/mm3???RBC - 5.01 m/mm3???Hgb - 14.6 Gm/dL???Hct - 44.7 %???MCV - 89.2 femtoliters???MCH - 29.1 pg???MCHC - 32.7 g/dL???Platelet Count - 250 k/mm3???RDW-SD - 42.4 femtoliters???MPV - 11.0 femtoliters???Nucleated RBC (Automated) - 0.0 #/100 WBC'S???Abs. NRBC - 0.0 k/mm3 CBC w/ Differential (06/09/2023) ???WBC - 7.6 k/mm3???RBC - 4.44 m/mm3???Hgb - 12.9 Gm/dL???Hct - 39.2 %???MCV - 88.3 femtoliters???MCH - 29.1 pg???MCHC - 32.9 g/dL???Platelet Count - 221 k/mm3???RDW-SD - 41.8 femtoliters???MPV - 11.2 femtoliters???Nucleated RBC (Automated) - 0.0 #/100 WBC'S???Abs. NRBC - 0.0 k/mm3???Abs. Neut - 4.5 k/mm3???Abs. Lymph - 2.4 k/mm3???Abs. [place] - 0.7 k/mm3???Abs. Eo - 0.1 k/mm3???Abs. Baso - 0.0 k/mm3???Neut % - 58.6 %???Lymph % - 31.2 %???[place] % - 8.5 %???Eos % - 0.9 %???Baso % - 0.4 %???Imm Gran - 0.4 %???Abs. Imm Gran - 0.0 k/mm3 CKMB CONFIRMATION/QUANT (06/09/2023) ???CK MB Confirmation - Quant - 2.7 ng/mL Cocaine Urine Screen (06/09/2023) ???Cocaine Metabolite Screen, Urine - POSITIVE Comprehensive Metabolic Panel (06/12/2023) ???Sodium - 138 mmol/L???Potassium - 4.7 mmol/L???Chloride - 101 mmol/L???Bicarbonate Level - 26 mmol/L???Anion Gap - 11???Glucose Level - 89 mg/dL???BUN - 14 mg/dL???Creatinine-Blood - 1.0 mg/dL???Estimated GFR Creatinine - 99 ML/MIN/1.73 M2???Calcium - 9.5 mg/dL???Protein, Total - 6.7 Gm/dL???Albumin - 4.1 Gm/dL???AG Ratio - 1.6???Alkaline Phosphatase - 186 units/L???AST (SGOT) - 51 units/L???ALT (SGPT) - 52 units/L???Bilirubin, Total - 0.2 mg/dL COVID-19, RSV, and Flu A/B, Rapid PCR (06/08/2023) ???Influenza A PCR - NEGATIVE???Influenza B PCR - NEGATIVE???RSV PCR - NEGATIVE???COVID-19 PCR Specimen Source - NASAL???COVID-19 PCR Result - NEGATIVE CPK w/ Reflex CKMB (06/09/2023) ???CK, Total - 379 units/L Ethanol Level (06/08/2023) ???Ethanol, Serum or Plasma - NONE DETECTED FENTANYL SCREEN, URINE (06/09/2023) ???Fentanyl Screen, Urine Result - POSITIVE GLUCOSE POC (06/08/2023) ???Glucose, POC - 118 mg/dL Hepatic Function Panel (06/09/2023) ???Protein, Total - 6.5 Gm/dL???Albumin - 4.2 Gm/dL???Alkaline Phosphatase - 208 units/L???AST (SGOT) - 85 units/L? ?ALT (SGPT) - 68 units/L? ?Bilirubin, Total - 0.5 mg/dL? ?Bilirubin, Direct - <0.2 mg/dL???Bilirubin, Indirect - Direct bilirubin is less than the measureable limit. Therefore, indirect HOLD BLUE TUBE (06/08/2023) ???Hold Blue Top - SPECIMEN DISCARDED AFTER 4 HOURS. HOLD GREEN TUBE (06/09/2023) ???Hold Green Top - SPECIMEN DISCARDED AFTER 1 WEEK INR (06/09/2023) ???INR - 1.0???Protime (PT) - 11.2 seconds Lactate Level (06/09/2023) ???Lactate - 0.9 mmol/L Liver Function Panel (06/10/2023) ???Protein, Total - 6.4 Gm/dL???Albumin - 4.1 Gm/dL???Alkaline Phosphatase - 210 units/L???AST (SGOT) - 62 units/L? ?ALT (SGPT) - 64 units/L? ?Bilirubin, Total - 0.4 mg/dL? ?Bilirubin, Direct - <0.2 mg/dL???Bilirubin, Indirect - Direct bilirubin is less than the measureable limit. Therefore, indirect Magnesium Level (06/11/2023) ???Magnesium - 2.1 mg/dL Opiate Screen Urine (06/09/2023) ???Opiate Screen, Urine - NONE DETECTED Phosphorus Level (06/11/2023) ???Phosphorus - 3.6 mg/dL TSH with T4 Reflex (Adults Only) (06/08/2023) ???TSH - 2.00 uIU/mL Immunizations This Visit Not Given Vaccine Commentsinfluenza virus vaccine, inactivated Patient Refuses PATIENT REFUSED NO MORE SHOTS Allergies (NKA means No Known Allergies) NKA Problems Active Problems??(9) Cocaine abuse?? cocaine use?? IV drug user?? Marijuana use?? Moderate cocaine use disorder?? Opioid abuse?? Opioid use disorder, severe, dependence?? Polysubstance abuse?? seizure disorder?? Education Materials Below is the list of Educational Leaflet Providered with your Discharge Instructions. Drug Abuse?? Valuables and Belongings I fully understand and agree that [facility] accepts no responsibility for all my personal [...] to send valuables and belongings home. ?? Safe envelope number: [id number] Disposition of Belongings: Valuables Locked Possessions released to: possessions still in ED. never came upo to [facility]. OA called ED. Date for Pt to Sign Valuables/Belongings: 06/09/23 18:59:00 ?? Other Discharge Information ? Case Management Discharge Plan?? Discharge Plan?? Discharge Level of Care at Discharge: Home/Usp/Foster Care ?? Pulmonary Rehab Status?? Pulmonary Rehab Discharge [...] are strongly encouraged to quit. Please call [facility] GeoPage Link at [phone] or [phone]-[facility] ([phone]) or log in to [email or web address] for referrals to smoking cessation programs. ?? 871 Suicide & Crisis Lifeline is available 09/12 if you or someone you know needs to find a reason to keep living. By calling 037 you'll be connected to a skilled, trained counselor at a crisis center in your area. INPATIENT DISCHARGE INSTRUCTIONS SIGNATURE WOODY RENDON Location:[facility] Registration Date and Time:06/08/2023 18:57 EST Primary Care Physician: Not on Staff, PCP Attending Physician: Rizwana SAGASTUME [facility], WOODY GALO, have received the above patient education materials/instructions and have verbalized understanding. If ambulance or transport services are being used I further acknowledge being given a choice of service. ?? If you need to contact me, please call me at this number: . Patient/Tire Setter Name: Patient/Tire Setter Signature: Relationship to Patient: Witness Name/Signature: Date: * Omar Mclain DO: PERFORM Event Display: Patient Education Leaflets Authored Date: [id number] Drug Abuse ?? [id number] Drug Abuse Use and abuse of drugs or medicines may lead to addiction or dependence. You may hear drug abuse oraddiction called substance use disorder (SHASTA). Examples of illegal drugs include amphetamines (alsoknown as speed or crank), methamphetamines (meth), cocaine, heroin, bath salts, and hallucinogens (such as MDMA, ecstasy, PCP, mescaline, and LSD). Xylazine is a sedative and pain reliever approved only for animals. It's not approved or safe for people. It's known by the street name tranq. Xylazine has been found in street drugs, especially heroin and fentanyl. It has been linked to overdoses and . Severe side effects from xylazine include slow heart beat and breathing, low blood pressure, skin sores, and coma. In some states, marijuana is an illegal drug. Medicines include prescription medicines, sedatives, and sleeping pills. Once addiction or dependence happens, you are at greater risk for the problems below. Social and personal problems ??? Craving for the drug and not being able to stop using even though you think you want to stop (psychological addiction) ??? Drug withdrawal symptoms if you stop takingthe drug (physical dependence) ??? Loss of friends and family ??? School or work problems ??? Arrest, conviction, and nursing home sentence for possession of an illegal substance or for driving under the infl uence ?? Health problems ??? Stroke, heart attack, heart failure, and kidney failure ??? Accidental injuriesto yourself or others while you are under the influence of a drug (in a car or at home) ??? HIV infection. This is a much greater risk if you use IV drugs. ??? Skin infections ??? Other sexually transmitted infections (STIs), such as herpes, chlamydia, and gonorrhea ??? Severe and fatal infection of the heart valves if you use IV drugs ??? Hepatitis B or C ??? Dementia, mood disorders, persistenthallucinations (particularly with hallucinogens) ??? Dental problems from methamphetamine abuse ??? from overdose ?? Home care The following suggestions can help you care for yourself at home: ??? Admit you have a drug problem. Ask for help from your family and close friends. ??? Seek professional help. This could be one-on-one therapy or counseling. There are also outpatient, inpatient, and residential drug treatment programs. ??? Join a self-help group for drug abuse. ??? Stay away from friends who abuse drugs or temptyou to continue abusing drugs. ??? Eat a balanced diet and start a regular exercise program. ?? Follow-up care Follow up with your healthcare provider, or as advised. Contact 1 of the resources below for help: ??? Substance Abuse and Mental Health Services Administration (SAMHSA) at www.samhsa.gov/findtreatment ??? National [place] on Alcoholism and Drug Dependence at www.ncadd.org ??? Narcotics Anonymous at www.na.org ?? Call 911 Call 911 right away if any of these occur: ??? Seizure ??? Hard time breathing or slow, irregular breathing ??? Chest pain ??? Sudden weakness on 1 side of your body or sudden trouble speaking ??? Very drowsy or trouble waking up ??? Fainting or loss of consciousness ??? Fast heart rate ??? Very slow heart rate ?? When to get medical care Call your healthcare provider if any of these occur: ??? Agitation, anxiety, or unable to sleep ???Unintended weight loss. This means more than 10 to 15 pounds over 3 months. ??? Fever of 100.4??F (38??C) or higher, or as advised by your provider ??? Shortness of breath ??? Cough with colored sputum ??? Redness, swelling, or tenderness at an injection site ??? You think counseling or drug rehabilitation services are needed to prevent additional drug use ?? Last Reviewed Date: 2022 ?? 7950-5283 [employer]. All rights reserved. This information is not intended as a substitute for professional medical care. Always follow your healthcare professional's instructions. ?? Patient Care team information Care Team Personnel Name: Milton Gant RN Position: [facility] RN Member Role: Primary Care Nurse Name: Nickie Awan RN Position: [facility] RN Member Role: Primary Care Nurse Name: Adriana Orosco RN Position: [facility] RN Member Role: Primary Care Nurse Name: Trish Paredes RN Position: [facility] RN Member Role: Primary Care Nurse Name: Charlene Reinoso RN Position: [facility] RN Member Role: Primary Care Nurse Name: Heather Duckworth RN Position: [facility] HBO Wound Member Role: Primary Care Nurse Name: Terri Wallace RN Position: [facility] RN Member Role: Primary Care Nurse Name: Lenin Soares RN Position: [facility] RN Member Role: Primary Care Nurse Name: Jahaira Urban Position: [facility] ED RN W/OE and Tasks Member Role: Primary Care Nurse Name: Handy Blackman RN Position: [facility] RN Member Role: Primary Care Nurse Name: Shani De La Cruz RN Position: [facility] RN Member Role: Primary Care Nurse Name: Not on Staff, PCP Position: [facility] Physician (General Medicine) Member Role: PCP Name: Kate Younger RN Position: [facility] RN Member Role: Primary Care Nurse Name: Latha Sevilla RN Position: [facility] RN Member Role: Primary Care Nurse Name: Millie Mcarthur RN Position: S RN Member Role: Primary Care Nurse Name: Elma Tang RN Position: [facility] RN Member Role: Primary Care Nurse Name: Fouzia Mccray RN Position: S RN Member Role: Primary Care Nurse Name: Alexandru Decker RN Position: [facility] RN Member Role: Primary Care Nurse Name: Nini Venegas RN Position: [facility] RN Member Role: Primary Care Nurse Name: Maris Lugo RN Position: [facility] RN Member Role: Primary Care Nurse Name: Karen Christiansen RN Position: [facility] RN Member Role: Primary Care Nurse Name: Herbert Garnica RN Position: [facility] RN Member Role: Primary Care Nurse Name: Anne Marie Castañeda RN Position: [facility] RN Member Role: Primary Care Nurse Care Team Related Persons Name: JOHNSON JAVIER Address: home [address] [place] [address] Name: ERASTO WEBSTER Address: [place] [address]
--- OUTSIDE RECORDS SUMMARY | 2023-12-25 16:46 | XMS_ITS | Continuity of Care Document ---
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 you'll be admitted to the hospital or referred to a bone specialist (orthopedic surgeon). ?? Signs of a leg or arm fracture Here's what to look for: ??? The leg or arm is crooked ??? A joint looks out of place ??? A bone sticks out (protrudes) from the skin ??? Weight can't be put on the leg or arm ??? The limb swells or is very painful ??? The limb is numb or tingles ??? A popping or snapping was heard during the injury ??? Bruising ?? Last Reviewed Date: 2023 ?? [employer]. All rights reserved. This information is not intended as a substitute for professional medical care. Always follow your healthcare professional's instructions. ?? * Joe Serrato NP: PERFORM Event Display: Patient Education Leaflets Authored Date: [id number] Blunt Abdominal Trauma Post Discharge Instructions ?? 600 Blunt Abdominal Trauma Post Discharge Instructions ?? You have sustained a solid organ injury involving: ? These instructions are intended to educate you and your family about what to watch out for after leaving the hospital.? Blunt trauma to the abdomen may result from several occurrences like a motor vehicle crash, motorcycle crash, bicycle crash, fall or assault. This may result in injury to internal organs. The organs that are most commonly injured are: the spleen, the liver and the kidneys. Depending on the circumstances, your medical team may opt to manage these injuries without surgery.? Discharge and follow-up instructions Continue to wear your discharge bracelet until cleared by a physician.?? After discharge from the hospital we recommend that you monitor the following signs and symptoms: worsening abdominal pain, worsening nausea or vomiting, severe lightheadedness or dizziness or fainting. Mild symptoms are expected after this type of injury. If you experience acute worsening of thesesymptoms, in particular significant lightheadedness or fainting please report to your nearest emergency room to be evaluated.? Activity Limitations It is possible for delayed bleeding or infections to occur after non operative management of the liver, spleen or kidney injuries. We recommend caution with your level of activity. Please refrain from excessive physical activity and sports until cleared by a physician. This period of limited physical activity may range from 6 to 8 weeks. Do not engage in contact sports (i.e. football, hockey, wrestling???) use caution when driving and always wear a seat belt. The aim of these limitations is to allow your injury time to heal and to ensure that you do not develop delayed bleeding. Please discuss any concerns with your doctor and/or PCP at follow-up appointments. Activity Limitations ??? No contact sports; e.g. football, basketball. ??? No heavy lifting ; e.g. at work, gym/weights, household activities. Limit lifting to less than 20 lbs.? No vigorous activities; eg motorbike riding, horse riding, jogging, skiing, ladder climbing. ?? Reasons to Return to Emergency Department Symptoms of delayed bleeding or infection include any of the following: ??? Worsening dizziness or lightheadedness -Fainting spell ??? Fever (high temperatures) ??? Increasing pain in your belly ??? Significant Nausea and Vomiting If any of these symptoms develop, please return?? to [facility] or [facility] emergency department for assessment.?? If you faint, you should be brought back to the emergency department by ambulance. ?? Summary Solid organ injuries such as spleen, liver and kidney injuries may be successfully managed without surgery but require monitoring and a period of limitation to your activities to avoid delayed bleeding. Please discuss with your physician when you will be able to return to your normal activities. References: Cristi Sales., & Zee Marsh. (2006). Nonoperative management of spleen and liver injuries. Journal of intensive care medicine, 21(5), 296-304. Calli Torres I., Moni Cintron., Ronny Munson., Ever Cuenca I., & Mayelin Quigley (2017). The role of splenic angioembolization as an adjunct to nonoperative management of blunt splenic injuries: a systematic review and meta-analysis. Journal of Trauma and Acute Care Surgery, 83(5), 934-943. Cristi Moore V., Nabor Shearer., & Toni EDelaney Leach. (2070). Trauma. [place]: [facility]. ? * Rojelio ADRIAN, oJe Savi: PERFORM Event Display: Patient Education Leaflets Authored Date: Rib Fracture (Broken Rib) ?? 11911 Rib Fracture (Broken Rib) Your ribs are curved bones in your chest. They help protect your lungs and expand and contract whenyou breathe. Children's ribs bend easily and can often withstand a blow or fall. But adult ribs aremore likely to break (fracture) under stress. Even coughing or a hard sneeze can fracture a rib. When to go to the emergency room (ER) Although they can be painful, most rib fractures aren't serious. But they often make it hard to cough or breathe deeply. Get to the ER or call 911 right away if you have: ??? Trouble breathing ??? Nausea, vomiting, or stomach pain with a sore or bruised rib ??? Pain that worsens over time ??? An injury to the chest or stomach ?? What to expect in the ER Here's what will happen in the ER:? A healthcare provider will ask about your injury and examine you carefully. ??? An X-ray of your chest will likely be taken to show any major damage to ribs and lungs. But ribs can have small breaks that don't show up on X-rays, even though they still hurt. In some cases, a CT scan may be done. ??? You may be given??medicine to ease your discomfort. ??? In rare cases, rib fractures can cause a lung to collapse or lead to bleeding in the chest. In these cases, a tube will be inserted into the chest to reinflate the lung or drain the blood. ?? Follow-up You are likely to heal in 6 to 8 weeks. Most rib fractures heal on their own with no lasting effects. Call your??healthcare provider??right away if you notice any of these symptoms: ??? Increased chest pain ??? Shortness of breath ??? Fever of 100.4??F (38??C) or above, or as directed by your provider ??? Chills ??? Coughing up blood ?? Last Reviewed Date: 2021 ?? 0429-0051 [employer]. All rights reserved. This information is not intended as a substitute for professional medical care. Always follow your healthcare professional's instructions. ?? Patient Care team information Care Team Personnel Name: Milton Gant RN Position: [facility] RN Member Role: Primary Care Nurse Name: Heather Martinez RN Position: [facility] HBO Wound Member Role: Primary Care Nurse Name: Nickie Awan RN Position: [facility] RN Member Role: Primary Care Nurse Name: Titus Mendez RN Position: [facility] RN Member Role: Primary Care Nurse Name: Charlene Rojas RN Position: [facility] RN Member Role: Primary Care Nurse Name: Terri Conway RN Position: [facility] RN Member Role: Primary Care Nurse Name: Juli Sheikh RN Position: [facility] RN Member Role: Primary Care Nurse Name: Adriana Orosco RN Position: [facility] RN Member Role: Primary Care Nurse Name: Trish Paredes RN Position: [facility] RN Member Role: Primary Care Nurse Name: Beth Gallegos LPN Position: [facility] RN Member Role: Primary Care Nurse Name: Lenin Soares RN Position: [facility] RN Member Role: Primary Care Nurse Name: Jahaira Urban Position: [facility] RN Member Role: Primary Care Nurse Name: Dominique Alarcon RN Position: [facility] RN Member Role: Primary Care Nurse Name: Handy Blackman RN Position: [facility] RN Member Role: Primary Care Nurse Name: Nieves Patricia RN Position: [facility] RN Member Role: Primary Care Nurse Name: Bebeto Morales RN Position: [facility] RN Member Role: Primary Care Nurse Name: Shani De La Cruz RN Position: [facility] RN Member Role: Primary Care Nurse Name: Not on Staff, PCP Position: [facility] Physician (General Medicine) Member Role: PCP Name: Kate Younger RN Position: [facility] RN Member Role: Primary Care Nurse Name: Latha Sevilla RN Position: [facility] RN Member Role: Primary Care Nurse Name: Millie Mcarthur RN Position: [facility] RN Member Role: Primary Care Nurse Name: Elma Tang RN Position: [facility] RN Member Role: Primary Care Nurse Name: Ryland Paulson RN Position: [facility] ED RN W/OE and Tasks Member Role: Primary Care Nurse Name: Fouzia Mccray RN Position: [facility] RN Member Role: Primary Care Nurse Name: Marisa Escoto RN Position: [facility] RN Member Role: Primary Care Nurse Name: Alexandru Decker RN Position: [facility] RN Member Role: Primary Care Nurse Name: Nini Venegas RN Position: [facility] RN Member Role: Primary Care Nurse Name: Maris Lugo RN Position: [facility] RN Member Role: Primary Care Nurse Name: Karen Christiansen RN Position: [facility] RN Member Role: Primary Care Nurse Name: Herbert Garnica RN Position: [facility] RN Member Role: Primary Care Nurse Name: Navya Castañeda RN Position: [facility] RN Member Role: Primary Care Nurse Care Team Related Persons Name: JAVIER JOHNSON Address: [address] [place] [address] Name: WEBSTERERASTO DIAL Address: [address] [place] [address]
--- NOTE | 2023-12-25 17:32 | MHC.EDTECH ---
late entry this tech attempted to draw labs and perform EKG the pt was uncooperative and received medication to calm down and to calm the voices . Will attempt to perform at later time
[2023-12-25 17:56] VITALS: RESP 16
--- NOTE | 2023-12-25 18:07 | PC.NURSE ---
Pt sleeping, breathing even and unlabored
--- NOTE | 2023-12-25 18:13 | MHC.EDTECH ---
at this time pt is sleeping, attempted to wake pt in which he stayed sleeping, equal chest rise present and snoring, tray left on bedside table
[2023-12-25 18:18] VITALS: RESP 16
--- NOTE | 2023-12-25 19:01 | MHC.EDTECH ---
Addendum entered by Panchito Carrasco 12/25/23 19:02: Due to locker #8 not locking properly w/ wang Original Note: at this time this tech changed pt belongings from locker #8 to Locker #12.
--- NOTE | 2023-12-25 22:01 | MHC.EDTECH ---
at this time this tech attempted to draw the pt's labs again when he woke up in order to urinate. The pt allowed us to collect a urine sample however refused to get his blood drawn, EKG done and nasal swab. Will attempt at future time.
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
[2023-12-25 22:43] LABS: Amphetamine Screen Urine Not Detected (Not Detect); Barbiturates, Urine Not Detected (Not Detect); Benzodiazepines Screen Urine Not Detected (Not Detect); Buprenorphine Scr Not Detected (Not Detect); Cannabinoid Screen Urine POSITIVE (Not Detect); Cocaine Screen Urine POSITIVE (Not Detect); Fentanyl, urine POSITIVE (Not Detect); Methadone Screen, Urine Positive (Not Detect); Opiate Screen Urine Not Detected (Not Detect); Oxycodone Screen Urine Not Detected (Not Detect); Phencyclidine Screen Urine Not Detected (Not Detect)
[2023-12-25] MEDS: traZODone HCL 100 MG TABLET PO (22:46)
[2023-12-26 06:26] VITALS: PULSE 76; RESP 18; TEMP 36.6; O2SAT 97
--- NOTE | 2023-12-26 07:14 | HE.PHANOTE ---
METHADONE CONFIRMATION FORM LAST DOSE 175MG FROM [facility] [place] LAST DOSE 12/25/2023
[2023-12-26] MEDS: diphenhydrAMINE HCL 50 MG/ML VIAL IM (09:54)
[2023-12-26] MEDS: Haloperidol Lactate 5 MG/ML VIAL IM (09:55)
[2023-12-26] MEDS: LORazepam 1 MG TABLET 2 MG PO (09:55)
--- NOTE | 2023-12-26 14:09 | MHC.EDTECH ---
Patient refused EKG and blood draw, Stated I'll do it later.
--- NOTE | 2023-12-26 15:17 | MHC.CARE ---
Patient will need to be reassessed due to still seeming somnolent/ minimally engaged in assessment post restraint. He will need a MSE/ risk assessment.
[2023-12-26 15:21] VITALS: BP 128/74; PULSE 66; RESP 16; TEMP 36.5; O2SAT 96
--- NOTE | 2023-12-26 21:58 | MHC.CARE ---
T/w attempted to re-assess BH1. Upon entering the room, pt had the covers over his head and he declined to participate in assessment. T/W expressed concern that pt has been in the ER for over 24 hours and the CARE Team needs to gather information to determine a plan of care. PT stated I'm never getting my blood drawn. T/W clarified we were not present to draw blood/labs but we needed to ask him questions. Pt stated I will wait until tomorrow and kept his head underneath the covers. T/W informed Mariana Cedeno.
--- NOTE | 2023-12-26 22:10 | MHC.EDTECH ---
pt continues to refuse all blood work and refusing to do EKG. RN AWARE.
--- NOTE | 2023-12-26 23:35 | PC.NURSE ---
resting queitly with eyes closed, resp with ease, will cont plan of care
--- NOTE | 2023-12-27 01:47 | PC.NURSE ---
pt awake and walked to the bathroom, without assistance and back to his room
--- NOTE | 2023-12-27 03:03 | MHC.EDTECH ---
pt continues to refuse all bloodwork and EKG ordered. RN AWARE.
[2023-12-27] MEDS: cloNIDine HCL 0.1 MG TABLET PO (05:37)
[2023-12-27 05:41] VITALS: BP 114/61; PULSE 75; RESP 16; TEMP 36.3; O2SAT 94
--- NOTE | 2023-12-27 05:46 | PC.NURSE ---
pt up walking around the room. pt is agitated, pt medicated, for anxiety, will cont plan of care
[2023-12-27] MEDS: methADONE HCl 20 MG/2 ML ORAL.CONC 175 MG PO (08:49)
[2023-12-27] MEDS: Gabapentin 300 MG CAPSULE 600 MG PO (08:49)
[2023-12-27 08:55] VITALS: BP 000/00; PULSE 65; RESP 18; TEMP 36.9; O2SAT 98
== END 2023-12-27 08:57 | disposition home or self-care (01) ==
PROVIDERS: Student in an Organized Health Care Education/Training Program; Emergency Provider Student in an Organized Health Care Education/Training Program
DX: F23 Brief psychotic disorder (principal); F19.959 Other psychoactive substance use, unspecified with psychoactive substance-induced psychotic disorder, unspecified; R45.1 Restlessness and agitation; R45.851 Suicidal ideations; F11.20 Opioid dependence, uncomplicated; F17.210 Nicotine dependence, cigarettes, uncomplicated
CPT/HCPCS: 80307; 99285; J1200; J1630; J1790; J2060; S9485

== ENCOUNTER 2025-05-04 17:33 | Inpatient (IN) | payer OTHER, SELFPAY ==
[2025-05-04 18:00] VITALS: BP 131/94; PULSE 64; TEMP 36.6; O2SAT 97
[2025-05-04 18:02] VITALS: BMI 31.1
--- NOTE | 2025-05-04 18:43 | HE.PHANOTE ---
Methadone verified 70 mg bid RN @ [facility]
[2025-05-04] MEDS: methADONE HCl 20 MG/2 ML ORAL.CONC 70 MG PO (18:45)
--- NOTE | 2025-05-04 18:47 | HO.PSYADMNOT ---
HPI Date of Service: 05/04/25 Chief Complaint: major depression, recurrent, severe ; cocaine use Sources of Information: patient interviewed, chart reviewed and crisis/core team assessment reviewed HPI Subjective Notes: [facility] Warning and Conditional Voluntary Healthcare Proxy: No Guardianship: No Medical Problems Affecting Mental Status: No Narrative: Per [facility] crisis note: Patient is a 39 years old single, Syrian speaking male with unknown medical history, and history of opioids order, MDD, PTSD admitted medical floor at [facility] following intentional opiate overdose in an attempt at self-harm on 04/29/25. Patient was admitted to medical floor after suicide attempt. Patient has been on methadone maintenance for about 10 years with it [facility] in [place] for a few years. Daily dose at 150 mg with 6 take-home bottles. Patient reports he has been doing well attending appointments and having negative urine drug test so he was given weekly appointments for the past 2 months. However patient reported that prior to that 2 months he was struggling long with daily use of cocaine and heroin. He states that he was using 50-100 dollars worth intranasal heroin or fentanyl daily and smoking same amount of money with crack and cocaine mumbling. Reported that he ran of his psychiatric medication a few weeks ago offer lot to pick them up from pharmacy periodic reported that he started hearing voices that told him to hurt himself and that the day of his last visit on 04/28/2025 he received about 6 bottles and took the entire equivalent to 900 mg. QTC was noted to be 506 on 04/30 and methadone dose was reduced to 30 mg daily. On M3, patient reports reason for being here is I keep hearing voices telling me to hurt myself and stuff like that . Reported that patient overdose on methadone on 04/29/25 from his take-home bottles in respond to command hallucinations. Patient denies SI/SIB/HI/AVH at this current time. However reports history of SIB via cutting, hitting self with last SIB was the day came into the hospital. Reports currently he is still hearing voices in my head but not able to elaborate in details of what the voices right now in his head. Denies CAH. Reports sometimes he feeling paranoid that people could read my mind . Reports he is seeing shadows stuff not sometimes before overdose but not currently. Reports many times regarding suicide attempts via overdose on pills/drugs/hang self with most recent besides this overdose episode was in prison 7 months ago. He did not want to tell more information regarding suicide attempts when he was in prison. He was not disclose information regarding sleep or appetite lately prior to be admitted to [facility]. Legal issues: He is currently on probation but do not want to disclose in details of why he was in prison, and how long he has to be on probation for I do not want to talk about it . Denies trauma history. Family history: Denies substance use history in the family but report family mental health issues but unsure regarding diagnosis. Substance use: Currently on methadone maintenance with outpatient 150 mg daily. Restart on methadone the overdose from [facility], with current dose is 70 mg b.i.d.. Patient denies other current use. Was guarded, superficial regarding history of reason drug use. Treatment history: Currently has psychiatrist and therapist via [facility]. Reports he is in his psychiatrist monthly. Not discuss reason psychiatric mental health admissions. History of inpatient level of care admission. We discussed with patient regarding medication that he has been received from [facility]. Patient does not want to take Abilify. Reports history of taking Vistaril, clonidine, trazodone, and Seroquel helpful to him. He said that staff at [facility] only see him 2 times they do not know me . Patient preferred to take Seroquel instead as this was helpful with the voices and sleep. We will continue to monitor QTC once Re-start on Seroquel. Patient will be benefit to get back to his normal dose once daily in the future- regarding methadone dose 150 mg. At this time, I will hold on hydroxyzine, order EKG for 05/05/25 at 1000 to rule out prolong QTc as I re-start Seroquel at - report AH. Patient is A&O x3, wearing hospital attire, guarded, superficial, irritable, depressed, anxious but No aggressive behavior. Poor concentration, appeared to be preoccupied. Thought processes is organized but poor concentration or guarded. Speech is within normal limit, slow to respond. Thought content is no SI/SIB/HI/VH but +AH, no CAH. Blunted affect, congruent with mood. Fair eye contact, but avoided at times. Impaired judgment and insight. Past Psychiatric History: Per previous record: Reports multiple prior admissions, the last being in the summer of 2021. Reports a diagnosis of PTSD, depression and substance use disorder. Reports multiple suicide attempts by cutting his wrists, overdosing on medications, trying to hang himself and most recent with heroin overdose prior to admission. Reports he did not tell anybody about this, but does report feeling hopeful. Does have a history of psychotic symptoms, but only when using substances. No overt manic history. During longest sobriety period of 8 years from 2004 until 2012, was on Suboxone only and no other psychotropic medications. Medication trials: olanzapine, Remeron, Prozac, Xanax and Klonopin. Reports Seroquel, clonidine and Vistaril were helpful. Medical Evaluation Reviewed: Hospitalist Ledaal Pending [facility] Medical History (Updated 05/04/25 @ 22:19 by Dunia Onofre NP) Depression Routine medical exam Opioid dependence on agonist therapy Family History: Report family hx of mental health but unsure dx. Denies family hx of substance use. Social History: On 05/04/25: Report he is single, no children. Staying with his parents and his sister. Not sure if he is able to return. Report have 3 siblings. 9th grade, unemployed. Currently on Probation Per hx Appears to be currently homeless. Was staying with parents, until his was arrested and therefore the children had to stay with his parents and therefore he had to move out in the context of DCF involvement. Reports he was in prison in December 2022 and released just prior to . Reports utilizing substances after release, then going to detox and then the [facility] and having to leave their in recent weeks due to failing a drug test. Substance History: Denies current issues. Report hx of Opiate use. Denies THC, Cig or alcohol use. Currently on MTD Mainternance.(was on 150mg daily prior to OD) Trauma History: Denies. Diagnostics Vital Signs (24Hr): Vital Signs - 24 hr 05/04/25 18:00 Temperature 97.9 F Pulse Rate 64 Blood Pressure 131/94 H Pulse Oximetry 97 Oxygen Delivery Method Room Air BMI result Body Mass Index 31.1 EKG EKG: reviewed EKG Comment: EKG done 05/03/25: NSR. QT/QTc: WNL Meds/Allergies Meds Home Medications ?Medication ?Instructions ?Recorded ?Confirmed ?Type aripiprazole 5 mg tablet (Abilify) 5 mg PO DAILY 05/04/25 05/04/25 History methadone 10 mg/mL oral concentrate 70 mg PO BID 05/04/25 05/04/25 History Allergies Allergies Allergy/AdvReac Type Severity Reaction Status Date / Time No Known Allergies (No Known Allergy Verified 05/04/25 17:50 Allergies*) Mental Status Exam Mental Status Exam Narrative: Patient is A&O x3, wearing hospital attire, guarded, superficial, irritable, depressed, anxious but No aggressive behavior. Poor concentration, appeared to be preoccupied. Thought processes is organized but poor concentration or guarded. Speech is within normal limit, slow to respond. Thought content is no SI/SIB/HI/VH but +AH, no CAH. Blunted affect, congruent with mood. Fair eye contact, but avoided at times. Impaired judgment and insight. Assessment & Plan Assessment & Plan (1) MDD (major depressive disorder), recurrent, severe, with psychosis: Status: Acute Code(s): F33.3 - Major depressive disorder, recurrent, severe with psychotic symptoms (2) OD (overdose of drug): Status: Acute Code(s): T50.901A - Poisoning by unspecified drugs, medicaments and biological substances, accidental (unintentional), initial encounter Plan HPI: Patient is a 39 years old single, Syrian speaking male with unknown medical history, and history of opioids order, MDD, PTSD admitted medical floor at [facility] following intentional opiate overdose in an attempt at self-harm on 04/29/25. Patient was admitted to medical floor after suicide attempt. Patient has been on methadone maintenance for about 10 years with [facility] in [place] for a few years. Daily dose at 150 mg with 6 take-home bottles. Patient reports he has been doing well attending appointments and having negative urine drug test so he was given weekly appointments for the past 2 months. However patient reported that prior to that 2 months he was struggling long with daily use of cocaine and heroin. He states that he was using 50-100 dollars worth intranasal heroin or fentanyl daily and smoking same amount of money with crack and cocaine mumbling. Reported that he ran of his psychiatric medication a few weeks ago offer lot to pick them up from pharmacy periodic reported that he started hearing voices that told him to hurt himself and that the day of his last visit on 04/28/2025 he received about 6 bottles and took the entire equivalent to 900 mg. QTC was noted to be 506 on 04/30 and methadone dose was reduced to 30 mg daily. Formulation/clinical reasoning: Overdose on 900 mg of methadone in response to CAH, copy medication noncompliance/run out of medication, increased psychotic behavior, increase in depression, anxiety as well as irritability. History of MDD with psychotic features, PTSD, polysubstance use disorders. Given the above information, patient would benefit in restrictive environment for his own safety, medication management, and refer patient back to outpatient psychiatric services for aftercare. Hospital course: 05/04/25: Seroquel 100 at bedtime for sleep/psychosis Seroquel 50 mg b.i.d. PRNs for psychosis/agitation Clonidine 0.1 t.i.d. PRNs for severe anxiety. Trazodone 50 mg p.r.n. with a repeat x1 for insomnia. Methadone 70 mg daily at 0800 and 1800. Plan Patient on 15 minute checks for safety. Admitted to . CV. Work with treatment team to do collateral. Currently on probation Contact the hospitalist regarding hospitalist consultation on admission: pending Diagnostic and discharge planning EKG ordered for 05/05/25 at 1000 to monitor for prolong QTc. Patient may benefit from combined methadone dose in the morning instead of b.i.d. OP MTD dose was 150mg daily from [facility]. Patient educated on: diagnosis, medication risk/benefits, substance abuse and therapeutic strategies Informed Consent: understands and further education needed Reason for continued inpatient stay Substantial Risk for: med/psych decompensation Statement Statement: I have reviewed the history and physical and performed a pertinent examination on my patient. No changes have occurred unless specified. If the History and Physical was not performed prior to admission, the Hospitalist's service will be consulted for completing the admission physical. Time Spent With Patient Time: Total time managing care of this patient today ____ minutes.
--- NOTE | 2025-05-04 19:02 | PC.NURSE ---
Woody refused flu shot on admission
--- NOTE | 2025-05-04 19:02 | PC.NURSE ---
Woody was admitted to at [address] [facility] following OD on methadone 900mg on 04/29/25. He signed a CV on admission but declined to sign further legals. Pt reports he overdosed due to command auditory hallucinations which constantly tell him to kill himself. I can't live like this. On admission he is alert and fully oriented. Mood is depressed. Affect is irritable. He endorses command auditory hallucinations but does not appear to be responding to internal stimuli. Thought Process is linear. He declined to particiate in admission assessment for the most part. He denies recent substance use, having been connected with [facility] and using their methadone program. He was given6 take home vials of 150mg last Friday and took them all. QTC on 05/03 was 416. He denies other medical Issues?and denies current physical complaint. Safety Checks are q 15 minutes.
[2025-05-04 20:00] VITALS: BP 133/71; PULSE 73; RESP 18; TEMP 36.3; O2SAT 97
--- NOTE | 2025-05-04 22:11 | PC.NURSE ---
EKG-requesting to have EKG on tomorrow. declining tonight.
--- NOTE | 2025-05-05 | ECG_ITS ---
Test Reason : qtc check Blood Pressure : */* mmHG Vent. Rate : 82 BPM Atrial Rate : 82 BPM P-R Int : 132 ms QRS Dur : 84 ms QT Int : 364 ms P-R-T Axes : 46 11 28 degrees QTcB Int : 425 ms Normal sinus rhythm Nonspecific T wave abnormality Abnormal ECG When compared with ECG of 12-Nov-2019 14:39, Vent. rate has increased by 36 bpm Questionable change in QRS axis Nonspecific T wave abnormality now evident in Lateral leads Referred By: Iona Lopez Electronically Signed By: Jasvir Cruz
[2025-05-05] MEDS: methADONE HCl 20 MG/2 ML ORAL.CONC 70 MG PO (07:49)
[2025-05-05 08:01] VITALS: BP 112/78; PULSE 105; RESP 16; TEMP 36.2; O2SAT 95
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
--- NOTE | 2025-05-05 10:18 | P.PNPSI_ITS ---
Subjective Subjective Date of Service: 05/05/25 Reason For Visit: major depression, recurrent, severe ; cocaine use Subjective Notes: Conditional Voluntary Interim History: Chart reviewed. Case discussed w/ team Per nursing report- slept 10 hrs t/w met with pt along w/ SW He reports that he overdosed on methadone in a suicide attempt in response to CAH. Reports AH of random stuff x 2 yrs and can't identify any factors that exacerbate or reduce the AH. He endorses depressed mood. Denies SI or violent ideation. He reports that he was supposed to have home visit w/ chief wellness officer on 04/29 but was in the hospital. Needs a note stating that he was in hospital to provide to prob officer Pt reports that Seroquel helps w/ sleep and he doesn't want to d/c it. It hasn't helped w/ AH. Tried Haldol (can't recall response) and Abilify in the past (didn't help) Pt c/o opioid w/d since methadone dose was reduced due to QTc prolongation following the methadone o/d. Titrated to 70 mg bid, take 150 mg at home. He declines SW's offer to refer to substance use tx and he states I don't have substance abuse . He reports that he called for help after o/d. Medication Compliance: Yes Side effects from medications: No Attending Groups: No Mental Status Exam Mental Status Exam Narrative: Appearance: dressed in hospital attire. grooming/hygiene and eye contact wnl. Speech: Fluent and wnl in regard to volume, tone, prosody Motor activity: Calm and without any tics, tremors or dyskinesias. Mood: depressed Affect: appropriate, reactive Thought process: goal directed and without evidence of formal thought disorder Thought content: denies SI/violent ideation. Perception: Endorses AH. Appeared internally preoccupied at one point Alert/oriented in all spheres Cognition grossly intact Insight: intact Judgment: intact Diagnostics Vital Signs (24Hr): Vital Signs - 24 hr 05/04/25 18:00 05/04/25 20:00 05/05/25 08:01 Temperature 97.9 F 97.3 F 97.2 F Pulse Rate 64 73 105 H Respiratory Rate 18 16 Blood Pressure 131/94 H 133/71 112/78 Pulse Oximetry 97 97 95 Oxygen Delivery Method Room Air Room Air Room Air BMI result Body Mass Index 31.1 EKG EKG: reviewed EKG Comment: Ordering Physician: Iona Lopez MD Date of Service: 05/05/25 Procedure(s): ECG 12 lead EKG Accession Number(s): [id number] cc: Iona Lopez MD~ Reason for Exam: Monitor for QTc prolongation Test Reason : qtc check Blood Pressure : */* mmHG Vent. Rate : 82 BPM Atrial Rate : 82 BPM P-R Int : 132 ms QRS Dur : 84 ms QT Int : 364 ms P-R-T Axes : 46 11 28 degrees QTcB Int : 425 ms Normal sinus rhythm Nonspecific T wave abnormality Abnormal ECG When compared with ECG of 12-Nov-2019 14:39, Vent. rate has increased by 36 bpm Questionable change in QRS axis Nonspecific T wave abnormality now evident in Lateral leads Medications Medications Current Medications Acetaminophen (Acetaminophen 325 Mg Tablet) 650 mg PO Q6H PRN PRN Reason: Headache/Pain, Scale 1-10 Al Hydroxide/Mg Hydroxide (Magnesium Hydrox/Alum Hydrox 30 Ml Oral.Susp) 30 ml PO Q6H PRN PRN Reason: Heartburn/Nausea Clonidine HCl (Clonidine Hcl 0.1 Mg Tablet) 0.1 mg PO BID PRN; Protocol PRN Reason: severe anxiety Hydroxyzine HCl (Hydroxyzine Hcl 25 Mg Tablet) 25 mg PO Q6H PRN On Hold: 05/04/25 19:02 PRN Reason: mild anxiety Magnesium Hydroxide (Milk Of Magnesia 30 Ml Oral.Susp) 30 ml PO DAILY PRN PRN Reason: Constipation Methadone HCl (Methadone Hcl 20 Mg/2 Ml Oral.Conc) 70 mg PO BID@0800,1800 [facility] Last Admin: 05/05/25 07:49 Dose: 70 mg Nicotine (Nicotine 21 Mg Patch.Td24) 21 mg TRANSDERMA DAILY PRN PRN Reason: nicotine craving Quetiapine Fumarate (Quetiapine Fumarate 100 Mg Tablet) 100 mg PO BEDTIME [facility] Last Admin: 05/04/25 22:06 Dose: 100 mg Quetiapine Fumarate (Quetiapine Fumarate 50 Mg Tablet) 50 mg PO BID PRN PRN Reason: agitation/voices Trazodone HCl (Trazodone Hcl 50 Mg Tablet) 50 mg PO BEDTIME MRX1 PRN PRN Reason: Insomnia Allergies Allergies Allergy/AdvReac Type Severity Reaction Status Date / Time No Known Allergies (No Known Allergy Verified 05/04/25 17:50 Allergies*) Assessment & Plan Assessment & Plan (1) MDD (major depressive disorder), recurrent, severe, with psychosis: Status: Acute Code(s): F33.3 - Major depressive disorder, recurrent, severe with psychotic symptoms (2) OD (overdose of drug): Status: Acute Code(s): T50.901A - Poisoning by unspecified drugs, medicaments and biological substances, accidental (unintentional), initial encounter Plan HPI: Patient is a 39 years old single, Brazilian speaking male with unknown medical history, and history of opioids order, MDD, PTSD admitted medical floor at [facility] following intentional opiate overdose in an attempt at self-harm on 04/29/25. Patient was admitted to medical floor after suicide attempt. Patient has been on methadone maintenance for about 10 years with it [facility] in [place] for a few years. Daily dose at 150 mg with 6 take-home bottles. Patient reports he has been doing well attending appointments and having negative urine drug test so he was given weekly appointments for the past 2 months. However patient reported that prior to that 2 months he was struggling long with daily use of cocaine and heroin. He states that he was using 50-100 dollars worth intranasal heroin or fentanyl daily and smoking same amount of money with crack and cocaine mumbling. Reported that he ran of his psychiatric medication a few weeks ago offer lot to pick them up from pharmacy periodic reported that he started hearing voices that told him to hurt himself and that the day of his last visit on 04/28/2025 he received about 6 bottles and took the entire equivalent to 900 mg. QTC was noted to be 506 on 04/30 and methadone dose was reduced to 30 mg daily. Formulation/clinical reasoning: Overdose on 900 mg of methadone in response to CAH, copy medication noncompliance/run out of medication, increased psychotic behavior, increase in depression, anxiety as well as irritability. History of MDD with psychotic features, PTSD, polysubstance use disorders. Given the above information, patient would benefit in restrictive environment for his own safety, medication management, and refer patient back to outpatient psychiatric services for aftercare. Hospital course: 05/04/25: Seroquel 100 at bedtime for sleep/psychosis Seroquel 50 mg b.i.d. PRNs for psychosis/agitation Clonidine 0.1 t.i.d. PRNs for severe anxiety. Trazodone 50 mg p.r.n. with a repeat x1 for insomnia. Methadone 70 mg daily at 0800 and 1800. Plan Patient on 15 minute checks for safety. Admitted to [facility]. [facility]. Work with treatment team to do collateral. Currently on probation Contact the hospitalist regarding hospitalist consultation on admission: pending Diagnostic and discharge planning EKG ordered for 05/05/25 at 1000 to monitor for prolong QTc. Patient may b enefit from combined methadone dose in the morning instead of b.i.d. OP MTD dose was 150mg daily from [facility]. 05/05: Pt denies SI/HI. He endorses AH x 2 yrs w/o significant improvement and appeared internally preoccupied at one point during our meeting today. He would like to continue the Seroquel for tx of insomnia but is agreeable to trying risperidone for tx of psychosis. Reviewed goal of simplifying med regimen and ideally d/c'ing Seroquel if sx improve w/ risperidone. QTc wnl. -Requested addiction medicine consult to adjust methadone dose as appropriate. Patient educated on: diagnosis, medication risk/benefits, substance abuse and therapeutic strategies Informed Consent: understands Reason for continued inpatient stay Substantial Risk for: med/psych decompensation Time Spent With Patient Time: Total time managing care of this patient today ____ minutes.
--- NOTE | 2025-05-05 16:11 | HO.ADDICTCON ---
History of Present Illness Date of Service: 05/05/2025 Chief Complaint: major depression, recurrent, severe ; cocaine use Reason for Consult: methadone dose titration Sources of Information: patient interviewed and chart reviewed HPI Narrative: Patient is a 39 year old male admitted to following intentional overdose on home methadone. Consult requested to address methadone dose titration. Per documentation from previous hospital, patient presented on 04/29 following ingestion of approx 900mg methadone. Regular daily dose 150mg QD. Medically admitted and methadone held until 05/02 when it was restarted at 30mg. Soon after seen by addiction medicine there and dose adjusted to 70mg BID with EKG monitoring. QTc 425 at [place] [facility] [place] Patient seen on unit, he is pleasant and engaged in interview. Reporting that he feels better when methadone is dosed at once and not BID as it is now--but also stating he understands why dose was adjusted. He reports feeling clammy, anxious and like dose is not enough. Past Psychiatric History: Per previous record: Reports multiple prior admissions, the last being in the summer of 2021. Reports a diagnosis of PTSD, depression and substance use disorder. Reports multiple suicide attempts by cutting his wrists, overdosing on medications, trying to hang himself and most recent with heroin overdose prior to admission. Reports he did not tell anybody about this, but does report feeling hopeful. Does have a history of psychotic symptoms, but only when using substances. No overt manic history. During longest sobriety period of 8 years from 2004 until 2012, was on Suboxone only and no other psychotropic medications. Medication trials: olanzapine, Remeron, Prozac, Xanax and Klonopin. Reports Seroquel, clonidine and Vistaril were helpful. Review of Systems Constitutional: Reports as per HPI Diagnostics Vital Signs (24Hr): Vital Signs - 24 hr 05/04/25 18:00 05/04/25 20:00 05/05/25 08:01 Temperature 97.9 F 97.3 F 97.2 F Pulse Rate 64 73 105 H Respiratory Rate 18 16 Blood Pressure 131/94 H 133/71 112/78 Pulse Oximetry 97 97 95 Oxygen Delivery Method Room Air Room Air Room Air BMI result Body Mass Index 31.1 Mental Status Exam Mental Status Exam Level of Consciousness: Awake and Appropriate Patient Behavior: Appropriate and Cooperative Affect Description: Appropriate Speech Pattern: Clear Thought Content: positive for Intact Judgement: Fair Medications Medications Current Medications Acetaminophen (Acetaminophen 325 Mg Tablet) 650 mg PO Q6H PRN PRN Reason: Headache/Pain, Scale 1-10 Al Hydroxide/Mg Hydroxide (Magnesium Hydrox/Alum Hydrox 30 Ml Oral.Susp) 30 ml PO Q6H PRN PRN Reason: Heartburn/Nausea Clonidine HCl (Clonidine Hcl 0.1 Mg Tablet) 0.1 mg PO BID PRN; Protocol PRN Reason: severe anxiety Hydroxyzine HCl (Hydroxyzine Hcl 25 Mg Tablet) 25 mg PO Q6H PRN On Hold: 05/04/25 19:02 PRN Reason: mild anxiety Magnesium Hydroxide (Milk Of Magnesia 30 Ml Oral.Susp) 30 ml PO DAILY PRN PRN Reason: Constipation Methadone HCl (Methadone Hcl 20 Mg/2 Ml Oral.Conc) 150 mg PO DAILY@0800 [facility] Nicotine (Nicotine 21 Mg Patch.Td24) 21 mg TRANSDERMA DAILY PRN PRN Reason: nicotine craving Quetiapine Fumarate (Quetiapine Fumarate 100 Mg Tablet) 100 mg PO BEDTIME [facility] Last Admin: 05/04/25 22:06 Dose: 100 mg Quetiapine Fumarate (Quetiapine Fumarate 50 Mg Tablet) 50 mg PO BID PRN PRN Reason: agitation/voices Trazodone HCl (Trazodone Hcl 50 Mg Tablet) 50 mg PO BEDTIME MRX1 PRN PRN Reason: Insomnia Allergies Allergies Allergy/AdvReac Type Severity Reaction Status Date / Time No Known Allergies (No Known Allergy Verified 05/04/25 17:50 Allergies*) Assessment & Plan Assessment & Plan (1) Opioid use disorder: Status: Acute Code(s): F11.90 - Opioid use, unspecified, uncomplicated Assessment and Plan: methadone 80mg this evening (total 150mg) resume home dose in AM 150mg QD recheck EKG in 3 days Total time managing care of this patient today __20__ minutes. PMF Past Medical History Medical History (Updated 05/05/25 @ 16:11 by Latha Tapia CNP) Depression Routine medical exam Opioid dependence on agonist therapy Social History Social History Household Members: Unknown / Unable to assess Housing: Apartment Do you presently have visiting nurse or other home services: No Alcohol intake: current Alcohol intake frequency: a few times a month Patient Tobacco Use Status: Never used Tobacco Tobacco use type: Cigarette Cigarette Packs Per Day: 1 Cigarettes Per Day: 20.0 e-Cigarette/Vaping Use: Currently Using Second Hand Smoke Exposure: Yes Substance Use Type: Heroin, Marijuana and Opiates Currently Displaying Signs/Symptoms of Drug Intoxication Withdrawal: No Have you been hit, kicked, punched, or otherwise hurt by someone within the past year? If so, by whom?: No Are you made to feel afraid or neglected: No Advance Directives: No Advance Directives Information Provided: Yes Do you have thoughts of harming others: None Do you have a plan to hurt others: No Plan Recently lost weight without trying: No Eating poorly because of decreased appetite: No Nutrition Risks: No Nutritional Risk Poor oral hygiene: No service: No Sexual orientation: Straight/Heterosexual
[2025-05-05] MEDS: methADONE HCl 20 MG/2 ML ORAL.CONC 80 MG PO (16:36)
[2025-05-05 20:00] VITALS: BP 145/74; PULSE 99; RESP 17; TEMP 36.3; O2SAT 95
[2025-05-06 08:20] VITALS: BP 119/77; PULSE 100; RESP 16; TEMP 36.7; O2SAT 95
[2025-05-06] MEDS: methADONE HCl 20 MG/2 ML ORAL.CONC 150 MG PO (08:26)
--- NOTE | 2025-05-06 16:18 | HO.PSYCHPN ---
Subjective Subjective Date of Service: 05/06/25 Reason For Visit: major depression, recurrent, severe ; cocaine use Subjective Notes: Conditional Voluntary Interim History: Chart reviewed. Case discussed w/ team Per nursing report- med adherent, anxious, slept 7 hrs, endorsed AH Pt met w/ the addiction medicine [facility]ING[facility]OLT CUTTER today. Methadone will be switched from bid to daily dosing per pt preference starting tomorrow. Input appreciated. During t/w's meeting with pt- reported feeling 'okay', denied SI/violent ideation, AHVH. Denied withdrawal sx. Denied med SE. Good appetite. No behavioral issues. Visible in milieu Medication Compliance: Yes Side effects from medications: No Mental Status Exam Mental Status Exam Narrative: Appearance: grooming/hygiene and eye contact wnl. Speech: Fluent and wnl in regard to volume, tone, prosody Motor activity: Calm and without any tics, tremors or dyskinesias. Mood: okay Affect: appropriate, constricted Thought process: goal directed and without evidence of formal thought disorder Thought content: denies SI/violent ideation. Perception: Denies current AHVH and does not appear internally preoccupied Alert/oriented in all spheres Cognition grossly intact Insight: intact Judgment: intact Diagnostics Vital Signs (24Hr): Vital Signs - 24 hr 05/05/25 20:00 05/06/25 08:20 Temperature 97.3 F 98.1 F Pulse Rate 99 100 Respiratory Rate 17 16 Blood Pressure 145/74 H 119/77 Pulse Oximetry 95 95 Oxygen Delivery Method Room Air Room Air BMI result Body Mass Index 31.1 Medications Medications Current Medications Acetaminophen (Acetaminophen 325 Mg Tablet) 650 mg PO Q6H PRN PRN Reason: Headache/Pain, Scale 1-10 Al Hydroxide/Mg Hydroxide (Magnesium Hydrox/Alum Hydrox 30 Ml Oral.Susp) 30 ml PO Q6H PRN PRN Reason: Heartburn/Nausea Clonidine HCl (Clonidine Hcl 0.1 Mg Tablet) 0.1 mg PO BID PRN; Protocol PRN Reason: severe anxiety Hydroxyzine HCl (Hydroxyzine Hcl 25 Mg Tablet) 25 mg PO Q6H PRN On Hold: 05/04/25 19:02 PRN Reason: mild anxiety Magnesium Hydroxide (Milk Of Magnesia 30 Ml Oral.Susp) 30 ml PO DAILY PRN PRN Reason: Constipation Methadone HCl (Methadone Hcl 20 Mg/2 Ml Oral.Conc) 150 mg PO DAILY@0800 [facility] Last Admin: 05/06/25 08:26 Dose: 150 mg Nicotine (Nicotine 21 Mg Patch.Td24) 21 mg TRANSDERMA DAILY PRN PRN Reason: nicotine craving Quetiapine Fumarate (Quetiapine Fumarate 100 Mg Tablet) 100 mg PO BEDTIME [facility] Last Admin: 05/05/25 20:17 Dose: 100 mg Quetiapine Fumarate (Quetiapine Fumarate 50 Mg Tablet) 50 mg PO BID PRN PRN Reason: agitation/voices Risperidone (Risperidone 0.5 Mg Tablet) 0.5 mg PO BEDTIME [facility] Last Admin: 05/05/25 21:09 Dose: 0.5 mg Trazodone HCl (Trazodone Hcl 50 Mg Tablet) 50 mg PO BEDTIME MRX1 PRN PRN Reason: Insomnia Allergies Allergies Allergy/AdvReac Type Severity Reaction Status Date / Time No Known Allergies (No Known Allergy Verified 05/04/25 17:50 Allergies*) Assessment & Plan Assessment & Plan (1) MDD (major depressive disorder), recurrent, severe, with psychosis: Status: Acute Code(s): F33.3 - Major depressive disorder, recurrent, severe with psychotic symptoms (2) Opioid dependence on agonist therapy: Status: Acute Code(s): F11.20 - Opioid dependence, uncomplicated (3) OD (overdose of drug): Status: Acute Code(s): T50.901A - Poisoning by unspecified drugs, medicaments and biological substances, accidental (unintentional), initial encounter Plan HPI: Patient is a 39 years old single, German speaking male with unknown medical history, and history of opioids order, MDD, PTSD admitted medical floor at [facility] following intentional opiate overdose in an attempt at self-harm on 04/29/25. Patient was admitted to medical floor after suicide attempt. Patient has been on methadone maintenance for about 10 years with [facility] in [place] for a few years. Daily dose at 150 mg with 6 take-home bottles. Patient reports he has been doing well attending appointments and having negative urine drug test so he was given weekly appointments for the past 2 months. However patient reported that prior to that 2 months he was struggling long with daily use of cocaine and heroin. He states that he was using 50-100 dollars worth intranasal heroin or fentanyl daily and smoking same amount of money with crack and cocaine mumbling. Reported that he ran of his psychiatric medication a few weeks ago offer lot to pick them up from pharmacy periodic reported that he started hearing voices that told him to hurt himself and that the day of his last visit on 04/28/2025 he received about 6 bottles and took the entire equivalent to 900 mg. QTC was noted to be 506 on 04/30 and methadone dose was reduced to 30 mg daily. Formulation/clinical reasoning: Overdose on 900 mg of methadone in response to CAH, copy medication noncompliance/run out of medication, increased psychotic behavior, increase in depression, anxiety as well as irritability. History of MDD with psychotic features, PTSD, polysubstance use disorders. Given the above information, patient would benefit in restrictive environment for his own safety, medication management, and refer patient back to outpatient psychiatric services for aftercare. Hospital course: 05/04/25: Seroquel 100 at bedtime for sleep/psychosis Seroquel 50 mg b.i.d. PRNs for psychosis/agitation Clonidine 0.1 t.i.d. PRNs for severe anxiety. Trazodone 50 mg p.r.n. with a repeat x1 for insomnia. Methadone 70 mg daily at 0800 and 1800. Plan Patient on 15 minute checks for safety. Admitted to . . Work with treatment team to do collateral. Currently on probation Contact the hospitalist regarding hospitalist consultation on admission: pending Diagnostic and discharge planning EKG ordered for 05/05/25 at 1000 to monitor for prolong QTc. Patient may benefit from combined methadone dose in the morning instead of b.i.d. OP MTD dose was 150mg daily from [facility]. 05/05: Pt denies SI/HI. He endorses AH x 2 yrs w/o significant improvement and appeared internally preoccupied at one point during our meeting today. He would like to continue the Seroquel for tx of insomnia but is agreeable to trying risperidone for tx of psychosis. Reviewed goal of simplifying med regimen and ideally d/c'ing Seroquel if sx improve w/ risperidone. QTc wnl. -Requested addiction medicine consult to adjust methadone dose as appropriate. 05/06: Pt seen by Addiction Medicine [facility]ING[facility]OLT CUTTER today, who adjusted pt's methadone from bid to daily dosing starting tomorrow. Dose increased from 140 mg/day to 150 mg. Pt denies sx of w/d. Currently denies SI/violent ideation, AHVH. Continue current tx plan for now. Patient educated on: diagnosis, medication risk/benefits, substance abuse and therapeutic strategies Informed Consent: understands Reason for continued inpatient stay Substantial Risk for: med/psych decompensation Time Spent With Patient Time: Total time managing care of this patient today ____ minutes.
[2025-05-06 19:56] VITALS: BP 119/70; PULSE 84; RESP 16; TEMP 36.2; O2SAT 96
[2025-05-07] MEDS: methADONE HCl 20 MG/2 ML ORAL.CONC 150 MG PO (08:15)
--- NOTE | 2025-05-07 12:11 | HO.PSYCHPN ---
Subjective Subjective Date of Service: 05/07/25 Reason For Visit: major depression, recurrent, severe ; cocaine use Interim History: Laying in bed. keeping to self. Patient reports feeling okay today; he reports sleeping well. denies SI/HI/VH/AH. Encouraged to attend groups. Continue tx plan. Medication Compliance: Yes Side effects from medications: No Attending Groups: No Mental Status Exam Mental Status Exam Patient Appearance: Appropriate Patient Orientation: Person, Place, Time and Situation Level of Consciousness: Awake Patient Behavior: Appropriate, Guarded and Good Eye Contact Mood Description: Calm Affect Description: Calm Ability to Follow Directions: Good Speech Pattern: Clear Memory Description: Intact Hallucinations: None Delusions: Not Present Thought Process: Intact Thought Content: positive for Intact Diagnostics Vital Signs (24Hr): Vital Signs - 24 hr 05/06/25 19:56 Temperature 97.2 F Pulse Rate 84 Respiratory Rate 16 Blood Pressure 119/70 Pulse Oximetry 96 Oxygen Delivery Method Room Air BMI result Body Mass Index 31.1 Medications Medications Current Medications Acetaminophen (Acetaminophen 325 Mg Tablet) 650 mg PO Q6H PRN PRN Reason: Headache/Pain, Scale 1-10 Al Hydroxide/Mg Hydroxide (Magnesium Hydrox/Alum Hydrox 30 Ml Oral.Susp) 30 ml PO Q6H PRN PRN Reason: Heartburn/Nausea Clonidine HCl (Clonidine Hcl 0.1 Mg Tablet) 0.1 mg PO BID PRN; Protocol PRN Reason: severe anxiety Hydroxyzine HCl (Hydroxyzine Hcl 25 Mg Tablet) 25 mg PO Q6H PRN On Hold: 05/04/25 19:02 PRN Reason: mild anxiety Magnesium Hydroxide (Milk Of Magnesia 30 Ml Oral.Susp) 30 ml PO DAILY PRN PRN Reason: Constipation Methadone HCl (Methadone Hcl 20 Mg/2 Ml Oral.Conc) 150 mg PO DAILY@0800 [facility] Last Admin: 05/07/25 08:15 Dose: 150 mg Nicotine (Nicotine 21 Mg Patch.Td24) 21 mg TRANSDERMA DAILY PRN PRN Reason: nicotine craving Quetiapine Fumarate (Quetiapine Fumarate 100 Mg Tablet) 100 mg PO BEDTIME [facility] Last Admin: 05/06/25 20:15 Dose: 100 mg Quetiapine Fumarate (Quetiapine Fumarate 50 Mg Tablet) 50 mg PO BID PRN PRN Reason: agitation/voices Risperidone (Risperidone 0.5 Mg Tablet) 0.5 mg PO BEDTIME [facility] Last Admin: 05/06/25 20:15 Dose: 0.5 mg Trazodone HCl (Trazodone Hcl 50 Mg Tablet) 50 mg PO BEDTIME MRX1 PRN PRN Reason: Insomnia Allergies Allergies Allergy/AdvReac Type Severity Reaction Status Date / Time No Known Allergies (No Known Allergy Verified 05/04/25 17:50 Allergies*) Assessment & Plan Assessment & Plan (1) MDD (major depressive disorder), recurrent, severe, with psychosis: Status: Acute Code(s): F33.3 - Major depressive disorder, recurrent, severe with psychotic symptoms (2) Opioid dependence on agonist therapy: Status: Acute Code(s): F11.20 - Opioid dependence, uncomplicated (3) OD (overdose of drug): Status: Acute Code(s): T50.901A - Poisoning by unspecified drugs, medicaments and biological substances, accidental (unintentional), initial encounter Plan HPI: Patient is a 39 years old single, Latvian speaking male with unknown medical history, and history of opioids order, MDD, PTSD admitted medical floor at [facility] following intentional opiate overdose in an attempt at self-harm on 04/29/25. Patient was admitted to medical floor after suicide attempt. Patient has been on methadone maintenance for about 10 years with [facility] in [place] for a few years. Daily dose at 150 mg with 6 take-home bottles. Patient reports he has been doing well attending appointments and having negative urine drug test so he was given weekly appointments for the past 2 months. However patient reported that prior to that 2 months he was struggling long with daily use of cocaine and heroin. He states that he was using 50-100 dollars worth intranasal heroin or fentanyl daily and smoking same amount of money with crack and cocaine mumbling. Reported that he ran of his psychiatric medication a few weeks ago offer lot to pick them up from pharmacy periodic reported that he started hearing voices that told him to hurt himself and that the day of his last visit on 04/28/2025 he received about 6 bottles and took the entire equivalent to 900 mg. QTC was noted to be 506 on 04/30 and methadone dose was reduced to 30 mg daily. Formulation/clinical reasoning: Overdose on 900 mg of methadone in response to CAH, copy medication noncompliance/run out of medication, increased psychotic behavior, increase in depression, anxiety as well as irritability. History of MDD with psychotic features, PTSD, polysubstance use disorders. Given the above information, patient would benefit in restrictive environment for his own safety, medication management, and refer patient back to outpatient psychiatric services for aftercare. Hospital course: 05/04/25: Seroquel 100 at bedtime for sleep/psychosis Seroquel 50 mg b.i.d. PRNs for psychosis/agitation Clonidine 0.1 t.i.d. PRNs for severe anxiety. Trazodone 50 mg p.r.n. with a repeat x1 for insomnia. Methadone 70 mg daily at 0800 and 1800. Plan Patient on 15 minute checks for safety. Admitted to . CV. Work with treatment team to do collateral. Currently on probation Contact the hospitalist regarding hospitalist consultation on admission: pending Diagnostic and discharge planning EKG ordered for 05/05/25 at 1000 to monitor for prolong QTc. Patient may benefit from combined methadone dose in the morning instead of b.i.d. OP MTD dose was 150mg daily from [facility]. 05/05: Pt denies SI/HI. He endorses AH x 2 yrs w/o significant improvement and appeared internally preoccupied at one point during our meeting today. He would like to continue the Seroquel for tx of insomnia but is agreeable to trying risperidone for tx of psychosis. Reviewed goal of simplifying med regimen and ideally d/c'ing Seroquel if sx improve w/ risperidone. QTc wnl. -Requested addiction medicine consult to adjust methadone dose as appropriate. 05/06: Pt seen by Addiction Medicine [employer] today, who adjusted pt's methadone from bid to daily dosing starting tomorrow. Dose increased from 140 mg/day to 150 mg. Pt denies sx of w/d. Currently denies SI/violent ideation, AHVH. Continue current tx plan for now. 05/07: Laying in bed. keeping to self. Patient reports feeling okay today; he reports sleeping well. denies SI/HI/VH/AH. Encouraged to attend groups. Continue tx plan. Patient educated on: diagnosis and medication risk/benefits Reason for continued inpatient stay Substantial Risk for: med/psych decompensation Time Spent With Patient Time: Total time managing care of this patient today _15___ minutes.
[2025-05-07 14:06] VITALS: BP 127/82; PULSE 87
[2025-05-07 19:02] VITALS: BP 118/85
[2025-05-07 19:20] VITALS: BP 112/72; PULSE 94; RESP 16; TEMP 36.1; O2SAT 94
[2025-05-08 08:00] VITALS: BP 115/68; PULSE 79; RESP 14; O2SAT 95
[2025-05-08] MEDS: methADONE HCl 20 MG/2 ML ORAL.CONC 150 MG PO (10:12)
--- NOTE | 2025-05-08 12:16 | P.PNPSI_ITS ---
Subjective Subjective Date of Service: 05/08/25 Reason For Visit: major depression, recurrent, severe ; cocaine use Interim History: Laying in bed. keeping to self. Patient reports feeling alright today; he reports sleeping well. denies any issues at this time. denies SI/HI/VH/AH. Encou raged to leave room and be more active on unit. Continue tx plan. Medication Compliance: Yes Side effects from medications: No Mental Status Exam Mental Status Exam Patient Appearance: Appropriate Patient Orientation: Person, Place, Time and Situation Level of Consciousness: Awake Patient Behavior: Appropriate, Guarded and Good Eye Contact Mood Description: Calm Affect Description: Calm Ability to Follow Directions: Good Speech Pattern: Clear Memory Description: Intact Hallucinations: None Delusions: Not Present Thought Process: Intact Thought Content: positive for Intact Diagnostics Vital Signs (24Hr): Vital Signs - 24 hr 05/07/25 14:06 05/07/25 19:02 05/07/25 19:20 Temperature 97.0 F Pulse Rate 87 94 Respiratory Rate 16 Blood Pressure 127/82 118/85 112/72 Pulse Oximetry 94 Oxygen Delivery Method Room Air 05/08/25 08:00 Temperature Pulse Rate 79 Respiratory Rate 14 Blood Pressure 115/68 Pulse Oximetry 95 Oxygen Delivery Method Room Air BMI result Body Mass Index 31.1 Medications Medications Current Medications Acetaminophen (Acetaminophen 325 Mg Tablet) 650 mg PO Q6H PRN PRN Reason: Headache/Pain, Scale 1-10 Al Hydroxide/Mg Hydroxide (Magnesium Hydrox/Alum Hydrox 30 Ml Oral.Susp) 30 ml PO Q6H PRN PRN Reason: Heartburn/Nausea Clonidine HCl (Clonidine Hcl 0.1 Mg Tablet) 0.1 mg PO BID PRN; Protocol PRN Reason: severe anxiety Last Admin: 05/07/25 19:02 Dose: 0.1 mg Hydroxyzine HCl (Hydroxyzine Hcl 25 Mg Tablet) 25 mg PO Q6H PRN On Hold: 05/04/25 19:02 PRN Reason: mild anxiety Magnesium Hydroxide (Milk Of Magnesia 30 Ml Oral.Susp) 30 ml PO DAILY PRN PRN Reason: Constipation Methadone HCl (Methadone Hcl 20 Mg/2 Ml Oral.Conc) 150 mg PO DAILY@0800 [facility] Last Admin: 05/08/25 10:12 Dose: 150 mg Nicotine (Nicotine 21 Mg Patch.Td24) 21 mg TRANSDERMA DAILY PRN PRN Reason: nicotine craving Quetiapine Fumarate (Quetiapine Fumarate 100 Mg Tablet) 100 mg PO BEDTIME [facility] Last Admin: 05/07/25 20:12 Dose: 100 mg Quetiapine Fumarate (Quetiapine Fumarate 50 Mg Tablet) 50 mg PO BID PRN PRN Reason: agitation/voices Risperidone (Risperidone 0.5 Mg Tablet) 0.5 mg PO BEDTIME [facility] Last Admin: 05/07/25 20:12 Dose: 0.5 mg Trazodone HCl (Trazodone Hcl 50 Mg Tablet) 50 mg PO BEDTIME MRX1 PRN PRN Reason: Insomnia Last Admin: 05/07/25 20:12 Dose: 50 mg Allergies Allergies Allergy/AdvReac Type Severity Reaction Status Date / Time No Known Allergies (No Known Allergy Verified 05/04/25 17:50 Allergies*) Assessment & Plan Assessment & Plan (1) MDD (major depressive disorder), recurrent, severe, with psychosis: Status: Acute Code(s): F33.3 - Major depressive disorder, recurrent, severe with psychotic symptoms (2) Opioid dependence on agonist therapy: Status: Acute Code(s): F11.20 - Opioid dependence, uncomplicated (3) OD (overdose of drug): Status: Acute Code(s): T50.901A - Poisoning by unspecified drugs, medicaments and biological substances, accidental (unintentional), initial encounter Plan HPI: Patient is a 39 years old single, [place]raini speaking male with unknown medical history, and history of opioids order, MDD, PTSD admitted medical floor at [facility] following intentional opiate overdose in an attempt at self-harm on 04/29/25. Patient was admitted to medical floor after suicide attempt. Patient has been on methadone maintenance for about 10 years with [facility] in [place] for a few years. Daily dose at 150 mg with 6 take-home bottles. Patient reports he has been doing well attending appointments and having negative urine drug test so he was given weekly appointments for the past 2 months. However patient reported that prior to that 2 months he was struggling long with daily use of cocaine and heroin. He states that he was using 50-100 dollars worth intranasal heroin or fentanyl daily and smoking same amount of money with crack and cocaine mumbling. Reported that he ran of his psychiatric medication a few weeks ago offer lot to pick them up from pharmacy periodic reported that he started hearing voices that told him to hurt himself and that the day of his last visit on 04/28/2025 he received about 6 bottles and took the entire equivalent to 900 mg. QTC was noted to be 506 on 04/30 and methadone dose was reduced to 30 mg daily. Formulation/clinical reasoning: Overdose on 900 mg of methadone in response to CAH, copy medication noncompliance/run out of medication, increased psychotic behavior, increase in depression, anxiety as well as irritability. History of MDD with psychotic features, PTSD, polysubstance use disorders. Given the above information, patient would benefit in restrictive environment for his own safety, medication management, and refer patient back to outpatient psychiatric services for aftercare. Hospital course: 05/04/25: Seroquel 100 at bedtime for sleep/psychosis Seroquel 50 mg b.i.d. PRNs for psychosis/agitation Clonidine 0.1 t.i.d. PRNs for severe anxiety. Trazodone 50 mg p.r.n. with a repeat x1 for insomnia. Methadone 70 mg daily at 0800 and 1800. Plan Patient on 15 minute checks for safety. Admitted to . CV. Work with treatment team to do collateral. Currently on probation Contact the hospitalist regarding hospitalist consultation on admission: pending Diagnostic and discharge planning EKG ordered for 05/05/25 at 1000 to monitor for prolong QTc. Patient may benefit from combined methadone dose in the morning instead of b.i.d. OP MTD dose was 150mg daily from [facility]. 05/05: Pt denies SI/HI. He endorses AH x 2 yrs w/o significant improvement and appeared internally preoccupied at one point during our meeting today. He would like to continue the Seroquel for tx of insomnia but is agreeable to trying risperidone for tx of psychosis. Reviewed goal of simplifying med regimen and ideally d/c'ing Seroquel if sx improve w/ risperidone. QTc wnl. -Requested addiction medicine consult to adjust methadone dose as appropriate. 05/06: Pt seen by Addiction Medicine [employer] today, who adjusted pt's methadone from bid to daily dosing starting tomorrow. Dose increased from 140 mg/day to 150 mg. Pt denies sx of w/d. Currently denies SI/violent ideation, AHVH. Continue current tx plan for now. 05/07: Laying in bed. keeping to self. Patient reports feeling okay today; he reports sleeping well. denies SI/HI/VH/AH. Encouraged to attend groups. Continue tx plan. 05/08: continue tx plan Patient educated on: diagnosis, medication risk/benefits and therapeutic strategies Reason for continued inpatient stay Substantial Risk for: med/psych decompensation Time Spent With Patient Time: Total time managing care of this patient today _15___ minutes.
[2025-05-08 13:45] VITALS: BP 121/79; PULSE 94; O2SAT 94
[2025-05-08 18:04] VITALS: BP 124/60
[2025-05-08 20:00] VITALS: BP 125/61; PULSE 75; RESP 16; TEMP 36.6; O2SAT 96
--- NOTE | 2025-05-09 | ECG_ITS ---
Test Reason : QTC Blood Pressure : */* mmHG Vent. Rate : 66 BPM Atrial Rate : 66 BPM P-R Int : 150 ms QRS Dur : 86 ms QT Int : 408 ms P-R-T Axes : 37 16 5 degrees QTcB Int : 427 ms Normal sinus rhythm Nonspecific T wave abnormality Abnormal ECG When compared with ECG of 05-May-2025 11:52, No significant change was found Referred By: Latha Tapia Electronically Signed By: ANIYA LONG MD
[2025-05-09 08:00] VITALS: BP 119/71; BP 123/77; PULSE 75; PULSE 78; RESP 16; RESP 20; TEMP 36.3; TEMP 36.4; O2SAT 95; O2SAT 98
[2025-05-09] MEDS: methADONE HCl 20 MG/2 ML ORAL.CONC 150 MG PO (08:07)
--- NOTE | 2025-05-09 11:50 | PM.EVENT ---
Event Note Date of Service: 05/09/25 Event Note: Addiction note Follow up EKG ordered and completed today Reviewed -no change notes. QTc WNL No additional follow up indicated at this time Time Spent With Patient Time: Total time managing care of this patient today ____ minutes.
[2025-05-09 14:06] VITALS: BP 112/68
--- NOTE | 2025-05-09 19:16 | HO.PSYCHPN ---
Subjective Subjective Date of Service: 05/09/25 Reason For Visit: major depression, recurrent, severe ; cocaine use Subjective Notes: [place] Warning and Conditional Voluntary Healthcare Proxy: No Guardianship: No Medical Problems Affecting Mental Status: No Interim History: Medical record and nursing notes reviewed; case discussed during rounds with team/nursing staff, and met with patient for supportive therapy/psychoeducation, as well as medication management. Patient reported that he slept good but had weird dream that feeling like his whole-body get pinched which patient reported that have history of at experience but not sure what is coming from as patient usually take combination of medications. Patient reports his anxiety is to the roof this morning until he was able to talk to the per patient officer and now reported that he has anxiety and depression is going down. Reports still hearing voices, just a minute or couple of minutes prior to meeting with this provider. Denies currently active SI but sometimes it is still in the back of his head. No active plan or intention. Discussed with patient regarding risperidone 2 increased targeting voices. Patient is receptive with the plan. Reported that he takes clonidine PRNs which is very helpful. He does not want to take Seroquel as it may sedated him during the day per nursing. Pain patient met with addiction team a couple of times, have his methadone dose up to 150 mg combined in once in the morning. EKG was NSR. Patient is less irritable, more cooperative, brighter affect, social with peers inappropriate on the unit, visible and attended groups. Hydroxyzine 25 mg PRNs is resumed Seroquel 50 mg p.r.n. b.i.d. p.r.n. down to 25 mg. Increase risperidone from 0.5 at bedtime to 1 mg twice a day for voices. Medication Compliance: Yes Side effects from medications: No Attending Groups: Yes Review of Systems Acute medical concerns: No Medical Review of Systems: unchanged Review of Systems Review of Systems Constitutional: Denies fatigue and Denies fever(s) Cardiovascular: Denies chest pain and Denies dyspnea Respiratory: Denies dyspnea Gastrointestinal: Denies abdominal pain Psychiatric: denies suicidal ideation. Endocrine: Denies fatigue Yes all other systems are reviewed and are negative Mental Status Exam Mental Status Exam Narrative: Appearance: grooming/hygiene and eye contact wnl. Speech: Fluent and wnl in regard to volume, tone, prosody Motor activity: Calmer and without any tics, tremors or dyskinesias. Mood: okay Affect: appropriate, constricted Thought process: goal directed and without evidence of formal thought disorder Thought content: denies SI/violent ideation. Perception: Denies current AHVH and does not appear internally preoccupied Alert/oriented in all spheres Cognition grossly intact Insight: intact Judgment: intact Diagnostics Vital Signs (24Hr): Vital Signs - 24 hr 05/08/25 20:00 05/09/25 08:00 05/09/25 14:06 Temperature 97.9 F 97.3 F Pulse Rate 75 75 Respiratory Rate 16 20 Blood Pressure 125/61 123/77 112/68 Pulse Oximetry 96 95 Oxygen Delivery Method Room Air Room Air BMI result Body Mass Index 31.1 Medications Medications Current Medications Acetaminophen (Acetaminophen 325 Mg Tablet) 650 mg PO Q6H PRN PRN Reason: Headache/Pain, Scale 1-10 Al Hydroxide/Mg Hydroxide (Magnesium Hydrox/Alum Hydrox 30 Ml Oral.Susp) 30 ml PO Q6H PRN PRN Reason: Heartburn/Nausea Clonidine HCl (Clonidine Hcl 0.1 Mg Tablet) 0.1 mg PO BID PRN; Protocol PRN Reason: severe anxiety Last Admin: 05/09/25 14:06 Dose: 0.1 mg Hydroxyzine HCl (Hydroxyzine Hcl 25 Mg Tablet) 25 mg PO Q6H PRN PRN Reason: mild anxiety Magnesium Hydroxide (Milk Of Magnesia 30 Ml Oral.Susp) 30 ml PO DAILY PRN PRN Reason: Constipation Methadone HCl (Methadone Hcl 20 Mg/2 Ml Oral.Conc) 150 mg PO DAILY@0800 [facility] Last Admin: 05/09/25 08:07 Dose: 150 mg Nicotine (Nicotine 21 Mg Patch.Td24) 21 mg TRANSDERMA DAILY PRN PRN Reason: nicotine craving Quetiapine Fumarate (Quetiapine Fumarate 100 Mg Tablet) 100 mg PO BEDTIME [facility] Last Admin: 05/08/25 20:16 Dose: 100 mg Quetiapine Fumarate (Quetiapine Fumarate 25 Mg Tablet) 25 mg PO BID PRN PRN Reason: agitation/voices Risperidone (Risperidone 1 Mg Tablet) 1 mg PO BEDTIME [facility] Trazodone HCl (Trazodone Hcl 50 Mg Tablet) 50 mg PO BEDTIME MRX1 PRN PRN Reason: Insomnia Last Admin: 05/08/25 20:16 Dose: 50 mg Allergies Allergies Allergy/AdvReac Type Severity Reaction Status Date / Time No Known Allergies (No Known Allergy Verified 05/04/25 17:50 Allergies*) Assessment & Plan Assessment & Plan (1) MDD (major depressive disorder), recurrent, severe, with psychosis: Status: Acute Code(s): F33.3 - Major depressive disorder, recurrent, severe with psychotic symptoms (2) Opioid dependence on agonist therapy: Status: Acute Code(s): F11.20 - Opioid dependence, uncomplicated (3) OD (overdose of drug): Status: Acute Code(s): T50.901A - Poisoning by unspecified drugs, medicaments and biological substances, accidental (unintentional), initial encounter Plan HPI: Patient is a 39 years old single, Cuban speaking male with unknown medical history, and history of opioids order, MDD, PTSD admitted medical floor at [facility] following intentional opiate overdose in an attempt at self-harm on 04/29/25. Patient was admitted to medical floor after suicide attempt. Patient has been on methadone maintenance for about 10 years with [facility] in [place] for a few years. Daily dose at 150 mg with 6 take-home bottles. Patient reports he has been doing well attending appointments and having negative urine drug test so he was given weekly appointments for the past 2 months. However patient reported that prior to that 2 months he was struggling long with daily use of cocaine and heroin. He states that he was using 50-100 dollars worth intranasal heroin or fentanyl daily and smoking same amount of money with crack and cocaine mumbling. Reported that he ran of his psychiatric medication a few weeks ago offer lot to pick them up from pharmacy periodic reported that he started hearing voices that told him to hurt himself and that the day of his last visit on 04/28/2025 he received about 6 bottles and took the entire equivalent to 900 mg. QTC was noted to be 506 on 04/30 and methadone dose was reduced to 30 mg daily. Formulation/clinical reasoning: Overdose on 900 mg of methadone in response to CAH, copy medication noncompliance/run out of medication, increased psychotic behavior, increase in depression, anxiety as well as irritability. History of MDD with psychotic features, PTSD, polysubstance use disorders. Given the above information, patient would benefit in restrictive environment for his own safety, medication management, and refer patient back to outpatient psychiatric services for aftercare. Hospital course: 05/04/25: Seroquel 100 at bedtime for sleep/psychosis Seroquel 50 mg b.i.d. PRNs for psychosis/agitation Clonidine 0.1 t.i.d. PRNs for severe anxiety. Trazodone 50 mg p.r.n. with a repeat x1 for insomnia. Methadone 70 mg daily at 0800 and 1800. Plan Patient on 15 minute checks for safety. Admitted to . CV. Work with treatment team to do collateral. Currently on probation Contact the hospitalist regarding hospitalist consultation on admission: pending Diagnostic and discharge planning EKG ordered for 05/05/25 at 1000 to monitor for prolong QTc. Patient may benefit from combined methadone dose in the morning instead of b.i.d. OP MTD dose was 150mg daily from [facility]. 05/05: Pt denies SI/HI. He endorses AH x 2 yrs w/o significant improvement and appeared internally preoccupied at one point during our meeting today. He would like to continue the Seroquel for tx of insomnia but is agreeable to trying risperidone for tx of psychosis. Reviewed goal of simplifying med regimen and ideally d/c'ing Seroquel if sx improve w/ risperidone. QTc wnl. -Requested addiction medicine consult to adjust methadone dose as appropriate. 05/06: Pt seen by Addiction Medicine LATHE SPOTTER today, who adjusted pt's methadone from bid to daily dosing starting tomorrow. Dose increased from 140 mg/day to 150 mg. Pt denies sx of w/d. Currently denies SI/violent ideation, AHVH. Continue current tx plan for now. 05/07: Laying in bed. keeping to self. Patient reports feeling okay today; he reports sleeping well. denies SI/HI/VH/AH. Encouraged to attend groups. Continue tx plan. 05/08: continue tx plan. 05/09/25: Patient reported that he slept good but had weird dream that feeling like his whole-body get pinched which patient reported that have history of at experience but not sure what is coming from as patient usually take combination of medications. Patient reports his anxiety is to the roof this morning until he was able to talk to the per patient officer and now reported that he has anxiety and depression is going down. Reports still hearing voices, just a minute or couple of minutes prior to meeting with this provider. Denies currently active SI but sometimes it is still in the back of his head. No active plan or intention. Discussed with patient regarding risperidone 2 increased targeting voices. Patient is receptive with the plan. Reported that he takes clonidine PRNs which is very helpful. He does not want to take Seroquel as it may sedated him during the day per nursing. Pain patient met with addiction team a couple of times, have his methadone dose up to 150 mg combined in once in the morning. EKG was NSR. Patient is less irritable, more cooperative, brighter affect, social with peers inappropriate on the unit, visible and attended groups. Hydroxyzine 25 mg PRNs is resumed Seroquel 50 mg p.r.n. b.i.d. p.r.n. down to 25 mg. Increase risperidone from 0.5 at bedtime to 1 mg twice a day for voices. Patient educated on: diagnosis, medication risk/benefits, substance abuse and therapeutic strategies Informed Consent: understands and further education needed Reason for continued inpatient stay Substantial Risk for: med/psych decompensation Time Spent With Patient Time: Total time managing care of this patient today ____ minutes.
[2025-05-09 20:14] VITALS: BP 119/71
[2025-05-10] MEDS: methADONE HCl 20 MG/2 ML ORAL.CONC 150 MG PO (07:51)
[2025-05-10 08:04] VITALS: BP 98/59; PULSE 73; RESP 16; TEMP 36.1; O2SAT 97
--- NOTE | 2025-05-10 13:12 | HO.PSYCHPN ---
Subjective Subjective Date of Service: 05/10/25 Reason For Visit: major depression, recurrent, severe ; cocaine use Subjective Notes: Conditional Voluntary Interim History: Active on unit. social with peers. Patient reports feeling anxious but I'm always like that ; he reports auditory hallucinations of random stuff , pt declined to go into detail. denies SI/HI/VH. He reports sleeping well last night. Continue tx plan. Medication Compliance: Yes Side effects from medications: No Mental Status Exam Mental Status Exam Patient Appearance: Appropriate Patient Orientation: Person, Place, Time and Situation Level of Consciousness: Awake and Alert Patient Behavior: Appropriate, Cooperative and Good Eye Contact Mood Description: Anxious Affect Description: Constricted Ability to Follow Directions: Good Speech Pattern: Clear Memory Description: Intact Hallucinations: Auditory Delusions: Not Present Thought Process: Intact Thought Content: positive for Intact Diagnostics Vital Signs (24Hr): Vital Signs - 24 hr 05/09/25 14:06 05/09/25 20:14 05/10/25 08:04 Temperature 97.0 F Pulse Rate 73 Respiratory Rate 16 Blood Pressure 112/68 119/71 98/59 L Pulse Oximetry 97 Oxygen Delivery Method Room Air BMI result Body Mass Index 31.1 Medications Medications Current Medications Acetaminophen (Acetaminophen 325 Mg Tablet) 650 mg PO Q6H PRN PRN Reason: Headache/Pain, Scale 1-10 Al Hydroxide/Mg Hydroxide (Magnesium Hydrox/Alum Hydrox 30 Ml Oral.Susp) 30 ml PO Q6H PRN PRN Reason: Heartburn/Nausea Clonidine HCl (Clonidine Hcl 0.1 Mg Tablet) 0.1 mg PO BID PRN; Protocol PRN Reason: severe anxiety Last Admin: 05/09/25 20:14 Dose: 0.1 mg Hydroxyzine HCl (Hydroxyzine Hcl 25 Mg Tablet) 25 mg PO Q6H PRN PRN Reason: mild anxiety Magnesium Hydroxide (Milk Of Magnesia 30 Ml Oral.Susp) 30 ml PO DAILY PRN PRN Reason: Constipation Methadone HCl (Methadone Hcl 20 Mg/2 Ml Oral.Conc) 150 mg PO DAILY@0800 [facility] Last Admin: 05/10/25 07:51 Dose: 150 mg Nicotine (Nicotine 21 Mg Patch.Td24) 21 mg TRANSDERMA DAILY PRN PRN Reason: nicotine craving Quetiapine Fumarate (Quetiapine Fumarate 100 Mg Tablet) 100 mg PO BEDTIME [facility] Last Admin: 05/09/25 20:14 Dose: 100 mg Quetiapine Fumarate (Quetiapine Fumarate 25 Mg Tablet) 25 mg PO BID PRN PRN Reason: agitation/voices Risperidone (Risperidone 1 Mg Tablet) 1 mg PO BID JAIME Last Admin: 05/10/25 08:43 Dose: 1 mg Trazodone HCl (Trazodone Hcl 50 Mg Tablet) 50 mg PO BEDTIME MRX1 PRN PRN Reason: Insomnia Last Admin: 05/09/25 20:16 Dose: 50 mg Allergies Allergies Allergy/AdvReac Type Severity Reaction Status Date / Time No Known Allergies (No Known Allergy Verified 05/04/25 17:50 Allergies*) Assessment & Plan Assessment & Plan (1) MDD (major depressive disorder), recurrent, severe, with psychosis: Status: Acute Code(s): F33.3 - Major depressive disorder, recurrent, severe with psychotic symptoms (2) Opioid dependence on agonist therapy: Status: Acute Code(s): F11.20 - Opioid dependence, uncomplicated (3) OD (overdose of drug): Status: Acute Code(s): T50.901A - Poisoning by unspecified drugs, medicaments and biological substances, accidental (unintentional), initial encounter Plan HPI: Patient is a 39 years old single, [place]alander speaking male with unknown medical history, and history of opioids order, MDD, PTSD admitted medical floor at [facility] following intentional opiate overdose in an attempt at self-harm on 04/29/25. Patient was admitted to medical floor after suicide attempt. Patient has been on methadone maintenance for about 10 years with [facility] in [place] for a few years. Daily dose at 150 mg with 6 take-home bottles. Patient reports he has been doing well attending appointments and having negative urine drug test so he was given weekly appointments for the past 2 months. However patient reported that prior to that 2 months he was struggling long with daily use of cocaine and heroin. He states that he was using 50-100 dollars worth intranasal heroin or fentanyl daily and smoking same amount of money with crack and cocaine mumbling. Reported that he ran of his psychiatric medication a few weeks ago offer lot to pick them up from pharmacy periodic reported that he started hearing voices that told him to hurt himself and that the day of his last visit on 04/28/2025 he received about 6 bottles and took the entire equivalent to 900 mg. QTC was noted to be 506 on 04/30 and methadone dose was reduced to 30 mg daily. Formulation/clinical reasoning: Overdose on 900 mg of methadone in response to CAH, copy medication noncompliance/run out of medication, increased psychotic behavior, increase in depression, anxiety as well as irritability. History of MDD with psychotic features, PTSD, polysubstance use disorders. Given the above information, patient would benefit in restrictive environment for his own safety, medication management, and refer patient back to outpatient psychiatric services for aftercare. Hospital course: 05/04/25: Seroquel 100 at bedtime for sleep/psychosis Seroquel 50 mg b.i.d. PRNs for psychosis/agitation Clonidine 0.1 t.i.d. PRNs for severe anxiety. Trazodone 50 mg p.r.n. with a repeat x1 for insomnia. Methadone 70 mg daily at 0800 and 1800. Plan Patient on 15 minute checks for safety. Admitted to . CV. Work with treatment team to do collateral. Currently on probation Contact the hospitalist regarding hospitalist consultation on admission: pending Diagnostic and discharge planning EKG ordered for 05/05/25 at 1000 to monitor for prolong QTc. Patient may benefit from combined methadone dose in the morning instead of b.i.d. OP MTD dose was 150mg daily from [facility]. 05/05: Pt denies SI/HI. He endorses AH x 2 yrs w/o significant improvement and appeared internally preoccupied at one point during our meeting today. He would like to continue the Seroquel for tx of insomnia but is agreeable to trying risperidone for tx of psychosis. Reviewed goal of simplifying med regimen and ideally d/c'ing Seroquel if sx improve w/ risperidone. QTc wnl. -Requested addiction medicine consult to adjust methadone dose as appropriate. 05/06: Pt seen by Addiction Medicine TRAM OPERATOR today, who adjusted pt's methadone from bid to daily dosing starting tomorrow. Dose increased from 140 mg/day to 150 mg. Pt denies sx of w/d. Currently denies SI/violent ideation, AHVH. Continue current tx plan for now. 05/07: Laying in bed. keeping to self. Patient reports feeling okay today; he reports sleeping well. denies SI/HI/VH/AH. Encouraged to attend groups. Continue tx plan. 05/08: continue tx plan. 05/09/25: Patient reported that he slept good but had weird dream that feeling like his whole-body get pinched which patient reported that have history of at experience but not sure what is coming from as patient usually take combination of medications. Patient reports his anxiety is to the roof this morning until he was able to talk to the per patient officer and now reported that he has anxiety and depression is going down. Reports still hearing voices, just a minute or couple of minutes prior to meeting with this provider. Denies currently active SI but sometimes it is still in the back of his head. No active plan or intention. Discussed with patient regarding risperidone 2 increased targeting voices. Patient is receptive with the plan. Reported that he takes clonidine PRNs which is very helpful. He does not want to take Seroquel as it may sedated him during the day per nursing. Pain patient met with addiction team a couple of times, have his methadone dose up to 150 mg combined in once in the morning. EKG was NSR. Patient is less irritable, more cooperative, brighter affect, social with peers inappropriate on the unit, visible and attended groups. Hydroxyzine 25 mg PRNs is resumed Seroquel 50 mg p.r.n. b.i.d. p.r.n. down to 25 mg. Increase risperidone from 0.5 at bedtime to 1 mg twice a day for voices. 05/10: Active on unit. social with peers. Patient reports feeling anxious but I'm always like that ; he reports auditory hallucinations of random stuff , pt declined to go into detail. denies SI/HI/VH. He reports sleeping well last night. Continue tx plan. Patient educated on: diagnosis and medication risk/benefits Reason for continued inpatient stay Substantial Risk for: med/psych decompensation Time Spent With Patient Time: Total time managing care of this patient today _20___ minutes.
[2025-05-10 13:57] VITALS: BP 103/68
[2025-05-10 21:36] VITALS: BP 116/58; PULSE 61; RESP 16; TEMP 36.3; O2SAT 96
[2025-05-11 08:00] VITALS: BP 101/65; PULSE 86; RESP 16; TEMP 36.3; O2SAT 95
--- NOTE | 2025-05-11 08:34 | HO.PSYCHPN ---
Subjective Subjective Date of Service: 05/11/25 Reason For Visit: major depression, recurrent, severe ; cocaine use Subjective Notes: Conditional Voluntary Interim History: Patient reports feeling alright today; He reports he is hoping to leave soon. Patient reports he plans on returning to his parents home. denies SI/HI/VH/AH. He reports sleeping well last night. Continue tx plan. Medication Compliance: Yes Side effects from medications: No Mental Status Exam Mental Status Exam Patient Appearance: Appropriate Patient Orientation: Person, Place, Time and Situation Level of Consciousness: Awake and Alert Patient Behavior: Appropriate, Cooperative and Good Eye Contact Mood Description: Anxious Affect Description: Calm Ability to Follow Directions: Good Speech Pattern: Clear Memory Description: Intact Hallucinations: None Delusions: Not Present Thought Process: Intact Thought Content: positive for Intact Diagnostics Vital Signs (24Hr): Vital Signs - 24 hr 05/10/25 13:57 05/10/25 21:36 Temperature 97.3 F Pulse Rate 61 Respiratory Rate 16 Blood Pressure 103/68 116/58 L Pulse Oximetry 96 Oxygen Delivery Method Room Air BMI result Body Mass Index 31.1 Medications Medications Current Medications Acetaminophen (Acetaminophen 325 Mg Tablet) 650 mg PO Q6H PRN PRN Reason: Headache/Pain, Scale 1-10 Al Hydroxide/Mg Hydroxide (Magnesium Hydrox/Alum Hydrox 30 Ml Oral.Susp) 30 ml PO Q6H PRN PRN Reason: Heartburn/Nausea Clonidine HCl (Clonidine Hcl 0.1 Mg Tablet) 0.1 mg PO BID PRN; Protocol PRN Reason: severe anxiety Last Admin: 05/10/25 22:00 Dose: 0.1 mg Hydroxyzine HCl (Hydroxyzine Hcl 25 Mg Tablet) 25 mg PO Q6H PRN PRN Reason: mild anxiety Magnesium Hydroxide (Milk Of Magnesia 30 Ml Oral.Susp) 30 ml PO DAILY PRN PRN Reason: Constipation Methadone HCl (Methadone Hcl 20 Mg/2 Ml Oral.Conc) 150 mg PO DAILY@0800 [facility] Last Admin: 05/10/25 07:51 Dose: 150 mg Nicotine (Nicotine 21 Mg Patch.Td24) 21 mg TRANSDERMA DAILY PRN PRN Reason: nicotine craving Quetiapine Fumarate (Quetiapine Fumarate 100 Mg Tablet) 100 mg PO BEDTIME [facility] Last Admin: 05/10/25 22:00 Dose: 100 mg Quetiapine Fumarate (Quetiapine Fumarate 25 Mg Tablet) 25 mg PO BID PRN PRN Reason: agitation/voices Risperidone (Risperidone 1 Mg Tablet) 1 mg PO BID JAIME Last Admin: 05/10/25 22:00 Dose: 1 mg Trazodone HCl (Trazodone Hcl 50 Mg Tablet) 50 mg PO BEDTIME MRX1 PRN PRN Reason: Insomnia Last Admin: 05/10/25 22:01 Dose: 50 mg Allergies Allergies Allergy/AdvReac Type Severity Reaction Status Date / Time No Known Allergies (No Known Allergy Verified 05/04/25 17:50 Allergies*) Assessment & Plan Assessment & Plan (1) MDD (major depressive disorder), recurrent, severe, with psychosis: Status: Acute Code(s): F33.3 - Major depressive disorder, recurrent, severe with psychotic symptoms (2) Opioid dependence on agonist therapy: Status: Acute Code(s): F11.20 - Opioid dependence, uncomplicated (3) OD (overdose of drug): Status: Acute Code(s): T50.901A - Poisoning by unspecified drugs, medicaments and biological substances, accidental (unintentional), initial encounter Plan HPI: Patient is a 39 years old single, Argentine speaking male with unknown medical history, and history of opioids order, MDD, PTSD admitted medical floor at [facility] following intentional opiate overdose in an attempt at self-harm on 04/29/25. Patient was admitted to medical floor after suicide attempt. Patient has been on methadone maintenance for about 10 years with [facility] in [place] for a few years. Daily dose at 150 mg with 6 take-home bottles. Patient reports he has been doing well attending appointments and having negative urine drug test so he was given weekly appointments for the past 2 months. However patient reported that prior to that 2 months he was struggling long with daily use of cocaine and heroin. He states that he was using 50-100 dollars worth intranasal heroin or fentanyl daily and smoking same amount of money with crack and cocaine mumbling. Reported that he ran of his psychiatric medication a few weeks ago offer lot to pick them up from pharmacy periodic reported that he started hearing voices that told him to hurt himself and that the day of his last visit on 04/28/2025 he received about 6 bottles and took the entire equivalent to 900 mg. QTC was noted to be 506 on 04/30 and methadone dose was reduced to 30 mg daily. Formulation/clinical reasoning: Overdose on 900 mg of methadone in response to CAH, copy medication noncompliance/run out of medication, increased psychotic behavior, increase in depression, anxiety as well as irritability. History of MDD with psychotic features, PTSD, polysubstance use disorders. Given the above information, patient would benefit in restrictive environment for his own safety, medication management, and refer patient back to outpatient psychiatric services for aftercare. Hospital course: 05/04/25: Seroquel 100 at bedtime for sleep/psychosis Seroquel 50 mg b.i.d. PRNs for psychosis/agitation Clonidine 0.1 t.i.d. PRNs for severe anxiety. Trazodone 50 mg p.r.n. with a repeat x1 for insomnia. Methadone 70 mg daily at 0800 and 1800. Plan Patient on 15 minute checks for safety. Admitted to . CV. Work with treatment team to do collateral. Currently on probation Contact the hospitalist regarding hospitalist consultation on admission: pending Diagnostic and discharge planning EKG ordered for 05/05/25 at 1000 to monitor for prolong QTc. Patient may benefit from combined methadone dose in the morning instead of b.i.d. OP MTD dose was 150mg daily from [facility]. 05/05: Pt denies SI/HI. He endorses AH x 2 yrs w/o significant improvement and appeared internally preoccupied at one point during our meeting today. He would like to continue the Seroquel for tx of insomnia but is agreeable to trying risperidone for tx of psychosis. Reviewed goal of simplifying med regimen and ideally d/c'ing Seroquel if sx improve w/ risperidone. QTc wnl. -Requested addiction medicine consult to adjust methadone dose as appropriate. 05/06: Pt seen by Addiction Medicine MOLD CAPPER HELPER today, who adjusted pt's methadone from bid to daily dosing starting tomorrow. Dose increased from 140 mg/day to 150 mg. Pt denies sx of w/d. Currently denies SI/violent ideation, AHVH. Continue current tx plan for now. 05/07: Laying in bed. keeping to self. Patient reports feeling okay today; he reports sleeping well. denies SI/HI/VH/AH. Encouraged to attend groups. Continue tx plan. 05/08: continue tx plan. 05/09/25: Patient reported that he slept good but had weird dream that feeling like his whole-body get pinched which patient reported that have history of at experience but not sure what is coming from as patient usually take combination of medications. Patient reports his anxiety is to the roof this morning until he was able to talk to the per patient officer and now reported that he has anxiety and depression is going down. Reports still hearing voices, just a minute or couple of minutes prior to meeting with this provider. Denies currently active SI but sometimes it is still in the back of his head. No active plan or intention. Discussed with patient regarding risperidone 2 increased targeting voices. Patient is receptive with the plan. Reported that he takes clonidine PRNs which is very helpful. He does not want to take Seroquel as it may sedated him during the day per nursing. Pain patient met with addiction team a couple of times, have his methadone dose up to 150 mg combined in once in the morning. EKG was NSR. Patient is less irritable, more cooperative, brighter affect, social with peers inappropriate on the unit, visible and attended groups. Hydroxyzine 25 mg PRNs is resumed Seroquel 50 mg p.r.n. b.i.d. p.r.n. down to 25 mg. Increase risperidone from 0.5 at bedtime to 1 mg twice a day for voices. 05/10: Active on unit. social with peers. Patient reports feeling anxious but I'm always like that ; he reports auditory hallucinations of random stuff , pt declined to go into detail. denies SI/HI/VH. He reports sleeping well last night. Continue tx plan. 05/11: continue tx plan Patient educated on: diagnosis and medication risk/benefits Reason for continued inpatient stay Substantial Risk for: med/psych decompensation Time Spent With Patient Time: Total time managing care of this patient today _15___ minutes.
[2025-05-11] MEDS: methADONE HCl 20 MG/2 ML ORAL.CONC 150 MG PO (08:44)
[2025-05-11 13:59] VITALS: BP 120/59
[2025-05-11 18:22] VITALS: BP 108/71; PULSE 68; RESP 14; TEMP 37.1; O2SAT 100; BMI 20.9
[2025-05-11 20:00] VITALS: BP 102/61; PULSE 73; RESP 18; TEMP 36.8; O2SAT 95
[2025-05-11 20:37] VITALS: BP 102/61
[2025-05-12] MEDS: methADONE HCl 20 MG/2 ML ORAL.CONC 150 MG PO (08:03)
[2025-05-12 08:10] VITALS: BP 104/59; PULSE 60; RESP 14; TEMP 36.2; O2SAT 97
--- NOTE | 2025-05-12 10:41 | P.PNPSI_ITS ---
Subjective Subjective Date of Service: 05/12/25 Reason For Visit: major depression, recurrent, severe ; cocaine use Subjective Notes: Conditional Voluntary Interim History: Patient was seen and discussed in rounds today. Records and plans were reviewed. He has been stable, eating and sleeping adequately. Affect is more broad. Continues to have some auditory hallucinations but not bothersome. No SI. No visual hallucinations. No changes were made today Review of Systems Review of Systems Yes all other systems are reviewed and are negative Mental Status Exam Mental Status Exam Patient Appearance: Appropriate Patient Orientation: Person, Place, Time and Situation Level of Consciousness: Awake and Alert Patient Behavior: Appropriate, Cooperative and Good Eye Contact Mood Description: Calm Affect Description: Calm Ability to Follow Directions: Good Speech Pattern: Clear Memory Description: Intact Hallucinations: None Delusions: Not Present Thought Process: Intact Thought Content: positive for Intact Diagnostics Vital Signs (24Hr): Vital Signs - 24 hr 05/11/25 13:59 05/11/25 18:22 05/11/25 20:00 Temperature 98.8 F 98.2 F Pulse Rate 68 73 Respiratory Rate 14 18 Blood Pressure 120/59 L 108/71 102/61 Pulse Oximetry 100 95 Oxygen Delivery Method Room Air 05/11/25 20:37 05/12/25 08:10 Temperature 97.1 F Pulse Rate 60 Respiratory Rate 14 Blood Pressure 102/61 104/59 L Pulse Oximetry 97 Oxygen Delivery Method Room Air BMI result Body Mass Index 20.9 Medications Medications Current Medications Acetaminophen (Acetaminophen 325 Mg Tablet) 650 mg PO Q6H PRN PRN Reason: Headache/Pain, Scale 1-10 Al Hydroxide/Mg Hydroxide (Magnesium Hydrox/Alum Hydrox 30 Ml Oral.Susp) 30 ml PO Q6H PRN PRN Reason: Heartburn/Nausea Clonidine HCl (Clonidine Hcl 0.1 Mg Tablet) 0.1 mg PO BID PRN; Protocol PRN Reason: severe anxiety Last Admin: 05/11/25 20:37 Dose: 0.1 mg Hydroxyzine HCl (Hydroxyzine Hcl 25 Mg Tablet) 25 mg PO Q6H PRN PRN Reason: mild anxiety Magnesium Hydroxide (Milk Of Magnesia 30 Ml Oral.Susp) 30 ml PO DAILY PRN PRN Reason: Constipation Methadone HCl (Methadone Hcl 20 Mg/2 Ml Oral.Conc) 150 mg PO DAILY@0800 [facility] Last Admin: 05/12/25 08:03 Dose: 150 mg Nicotine (Nicotine 21 Mg Patch.Td24) 21 mg TRANSDERMA DAILY PRN PRN Reason: nicotine craving Quetiapine Fumarate (Quetiapine Fumarate 100 Mg Tablet) 100 mg PO BEDTIME [facility] Last Admin: 05/11/25 20:37 Dose: 100 mg Quetiapine Fumarate (Quetiapine Fumarate 25 Mg Tablet) 25 mg PO BID PRN PRN Reason: agitation/voices Risperidone (Risperidone 1 Mg Tablet) 1 mg PO BID [facility] Last Admin: 05/12/25 08:48 Dose: 1 mg Trazodone HCl (Trazodone Hcl 50 Mg Tablet) 50 mg PO BEDTIME MRX1 PRN PRN Reason: Insomnia Last Admin: 05/11/25 20:37 Dose: 50 mg Allergies Allergies Allergy/AdvReac Type Severity Reaction Status Date / Time No Known Allergies (No Known Allergy Verified 05/04/25 17:50 Allergies*) Assessment & Plan Assessment & Plan (1) MDD (major depressive disorder), recurrent, severe, with psychosis: Status: Acute Code(s): F33.3 - Major depressive disorder, recurrent, severe with psychotic symptoms (2) Opioid dependence on agonist therapy: Status: Acute Code(s): F11.20 - Opioid dependence, uncomplicated (3) OD (overdose of drug): Status: Acute Code(s): T50.901A - Poisoning by unspecified drugs, medicaments and biological s ubstances, accidental (unintentional), initial encounter Plan HPI: Patient is a 39 years old single, Greenlandic speaking male with unknown medical history, and history of opioids order, MDD, PTSD admitted medical floor at [facility] following intentional opiate overdose in an attempt at self-harm on 04/29/25. Patient was admitted to medical floor after suicide attempt. Patient has been on methadone maintenance for about 10 years with [facility] in [place] for a few years. Daily dose at 150 mg with 6 take-home bottles. Patient reports he has been doing well attending appointments and having negative urine drug test so he was given weekly appointments for the past 2 months. However patient reported that prior to that 2 months he was struggling long with daily use of cocaine and heroin. He states that he was using 50-100 dollars worth intranasal heroin or fentanyl daily and smoking same amount of money with crack and cocaine mumbling. Reported that he ran of his psychiatric medication a few weeks ago offer lot to pick them up from pharmacy periodic reported that he started hearing voices that told him to hurt himself and that the day of his last visit on 04/28/2025 he received about 6 bottles and took the entire equivalent to 900 mg. QTC was noted to be 506 on 04/30 and methadone dose was reduced to 30 mg daily. Formulation/clinical reasoning: Overdose on 900 mg of methadone in response to CAH, copy medication noncompliance/run out of medication, increased psychotic behavior, increase in depression, anxiety as well as irritability. History of MDD with psychotic features, PTSD, polysubstance use disorders. Given the above information, patient would benefit in restrictive environment for his own s afety, medication management, and refer patient back to outpatient psychiatric services for aftercare. Hospital course: 05/04/25: Seroquel 100 at bedtime for sleep/psychosis Seroquel 50 mg b.i.d. PRNs for psychosis/agitation Clonidine 0.1 t.i.d. PRNs for severe anxiety. Trazodone 50 mg p.r.n. with a repeat x1 for insomnia. Methadone 70 mg daily at 0800 and 1800. Plan Patient on 15 minute checks for safety. Admitted to . CV. Work with treatment team to do collateral. Currently on probation Contact the hospitalist regarding hospitalist consultation on admission: pending Diagnostic and discharge planning EKG ordered for 05/05/25 at 1000 to monitor for prolong QTc. Patient may benefit from combined methadone dose in the morning instead of b.i.d. OP MTD dose was 150mg daily from [facility]. 05/05: Pt denies SI/HI. He endorses AH x 2 yrs w/o significant improvement and appeared internally preoccupied at one point during our meeting today. He would like to continue the Seroquel for tx of insomnia but is agreeable to trying risperidone for tx of psychosis. Reviewed goal of simplifying med regimen and ideally d/c'ing Seroquel if sx improve w/ risperidone. QTc wnl. -Requested addiction medicine consult to adjust methadone dose as appropriate. 05/06: Pt seen by Addiction Medicine OPERATING ENGINEER APPRENTICE today, who adjusted pt's methadone from bid to daily dosing starting tomorrow. Dose increased from 140 mg/day to 150 mg. Pt denies sx of w/d. Currently denies SI/violent ideation, AHVH. Continue current tx plan for now. 05/07: Laying in bed. keeping to self. Patient reports feeling okay today; he reports sleeping well. denies SI/HI/VH/AH. Encouraged to attend groups. Continue tx plan. 05/08: continue tx plan. 05/09/25: Patient reported that he slept good but had weird dream that feeling like his whole-body get pinched which patient reported that have history of at experience but not sure what is coming from as patient usually take combination of medications. Patient reports his anxiety is to the roof this morning until he was able to talk to the per patient officer and now reported that he has anxiety and depression is going down. Reports still hearing voices, just a minute or couple of minutes prior to meeting with this provider. Denies currently active SI but sometimes it is still in the back of his head. No active plan or intention. Discussed with patient regarding risperidone 2 increased targeting voices. Patient is receptive with the plan. Reported that he takes clonidine PRNs which is very helpful. He does not want to take Seroquel as it may sedated him during the day per nursing. Pain patient met with addiction team a couple of times, have his methadone dose up to 150 mg combined in once in the morning. EKG was NSR. Patient is less irritable, more cooperative, brighter affect, social with peers inappropriate on the unit, visible and attended groups. Hydroxyzine 25 mg PRNs is resumed Seroquel 50 mg p.r.n. b.i.d. p.r.n. down to 25 mg. Increase risperidone from 0.5 at bedtime to 1 mg twice a day for voices. 05/10: Active on unit. social with peers. Patient reports feeling anxious but I'm always like that ; he reports auditory hallucinations of random stuff , pt declined to go into detail. denies SI/HI/VH. He reports sleeping well last night. Continue tx plan. 05/11: continue tx plan 05/12: Continue current regimen and plans. Reason for continued inpatient stay Substantial Risk for: med/psych decompensation Time Spent With Patient Time: Total time managing care of this patient today ____ minutes.
[2025-05-12 16:48] VITALS: BP 114/71
[2025-05-12 20:00] VITALS: BP 121/74; PULSE 85; RESP 16; TEMP 36.9; O2SAT 94
[2025-05-13 08:00] VITALS: BP 107/63; PULSE 70; RESP 14; TEMP 2.3; TEMP 36.2; O2SAT 96
[2025-05-13] MEDS: methADONE HCl 20 MG/2 ML ORAL.CONC 150 MG PO (08:22)
--- NOTE | 2025-05-13 14:57 | P.PNPSI_ITS ---
Subjective Subjective Date of Service: 05/13/25 Reason For Visit: major depression, recurrent, severe ; cocaine use Subjective Notes: [place] Warning and Conditional Voluntary Healthcare Proxy: No Guardianship: No Medical Problems Affecting Mental Status: No Interim History: Medical record and nursing notes reviewed; case discussed during rounds with team/nursing staff, and met with patient for supportive therapy/psychoeducation, as well as medication management. Patient is visible, social and attended groups. Report voices but with much less intense. Report he sometimes makes a conspiracy over his voices. Also report pitching feeling on left upper arm and right leg which are not new to him. Denies SI/SIB/HI. Report he feels safe and better. Per nursing, med compliant and slept for 7 hours. Self reports he was up a couple times at night. Encourage to not napping too late in the afternoon which could affect his nighttime sleep. Patient is receptive Increased Risperidone up to 2mg BID for voices. Medication Compliance: Yes Side effects from medications: No Attending Groups: Yes Review of Systems Acute medical concerns: No Medical Review of Systems: unchanged Review of Systems Review of Systems Constitutional: Denies fatigue and Denies fever(s) Cardiovascular: Denies chest pain and Denies dyspnea Respiratory: Denies dyspnea Gastrointestinal: Denies abdominal pain Psychiatric: denies suicidal ideation Endocrine: Denies fatigue Yes all other systems are reviewed and are negative Mental Status Exam Mental Status Exam Narrative: Appearance: grooming/hygiene and eye contact wnl. Speech: Fluent and wnl in regard to volume, tone, prosody Motor activity: Calmer and without any tics, tremors or dyskinesias. Mood: okay Affect: appropriate, constricted Thought process: goal directed and without evidence of formal thought disorder Thought content: denies SI/violent ideation. Perception: Report AH but does not appear internally preoccupied Alert/oriented in all spheres Cognition grossly intact Insight: intact Judgment: intact Diagnostics Vital Signs (24Hr): Vital Signs - 24 hr 05/12/25 16:48 05/12/25 20:00 05/13/25 08:00 Temperature 98.4 F 36.2 F L Pulse Rate 85 70 Respiratory Rate 16 14 Blood Pressure 114/71 121/74 107/63 Pulse Oximetry 94 96 Oxygen Delivery Method Room Air Room Air BMI result Body Mass Index 20.9 Medications Medications Current Medications Acetaminophen (Acetaminophen 325 Mg Tablet) 650 mg PO Q6H PRN PRN Reason: Headache/Pain, Scale 1-10 Al Hydroxide/Mg Hydroxide (Magnesium Hydrox/Alum Hydrox 30 Ml Oral.Susp) 30 ml PO Q6H PRN PRN Reason: Heartburn/Nausea Clonidine HCl (Clonidine Hcl 0.1 Mg Tablet) 0.1 mg PO BID PRN; Protocol PRN Reason: severe anxiety Last Admin: 05/12/25 16:48 Dose: 0.1 mg Hydroxyzine HCl (Hydroxyzine Hcl 25 Mg Tablet) 25 mg PO Q6H PRN PRN Reason: mild anxiety Magnesium Hydroxide (Milk Of Magnesia 30 Ml Oral.Susp) 30 ml PO DAILY PRN PRN Reason: Constipation Methadone HCl (Methadone Hcl 20 Mg/2 Ml Oral.Conc) 150 mg PO DAILY@0800 [facility] Last Admin: 05/13/25 08:22 Dose: 150 mg Nicotine (Nicotine 21 Mg Patch.Td24) 21 mg TRANSDERMA DAILY PRN PRN Reason: nicotine craving Quetiapine Fumarate (Quetiapine Fumarate 100 Mg Tablet) 100 mg PO BEDTIME [facility] Last Admin: 05/12/25 21:03 Dose: 100 mg Quetiapine Fumarate (Quetiapine Fumarate 25 Mg Tablet) 25 mg PO BID PRN PRN Reason: agitation/voices Risperidone (Risperidone 2 Mg Tablet) 2 mg PO BID [facility] Trazodone HCl (Trazodone Hcl 50 Mg Tablet) 50 mg PO BEDTIME MRX1 PRN PRN Reason: Insomnia Last Admin: 05/11/25 20:37 Dose: 50 mg Allergies Allergies Allergy/AdvReac Type Severity Reaction Status Date / Time No Known Allergies (No Known Allergy Verified 05/04/25 17:50 Allergies*) Assessment & Plan Assessment & Plan (1) MDD (major depressive disorder), recurrent, severe, with psychosis: Status: Acute Code(s): F33.3 - Major depressive disorder, recurrent, severe with psychotic symptoms (2) Opioid dependence on agonist therapy: Status: Acute Code(s): F11.20 - Opioid dependence, uncomplicated (3) OD (overdose of drug): Status: Acute Code(s): T50.901A - Poisoning by unspecified drugs, medicaments and biological substances, accidental (unintentional), initial encounter Plan HPI: Patient is a 39 years old single, Luxembourgish speaking male with unknown medical history, and history of opioids order, MDD, PTSD admitted medical floor at [facility] following intentional opiate overdose in an attempt at self-harm on 04/29/25. Patient was admitted to medical floor after suicide attempt. Patient has been on methadone maintenance for about 10 years with it [facility] in [place] for a few years. Daily dose at 150 mg with 6 take-home bottles. Patient reports he has been doing well attending appointments and having negative urine drug test so he was given weekly appointments for the past 2 months. However patient reported that prior to that 2 months he was struggling long with daily use of cocaine and heroin. He states that he was using 50-100 dollars worth intranasal heroin or fentanyl daily and smoking same amount of money with crack and cocaine mumbling. Reported that he ran of his psychiatric medication a few weeks ago offer lot to pick them up from pharmacy periodic reported that he started hearing voices that told him to hurt himself and that the day of his last visit on 04/28/2025 he received about 6 bottles and took the entire equivalent to 900 mg. QTC was noted to be 506 on 04/30 and methadone dose was reduced to 30 mg daily. Formulation/clinical reasoning: Overdose on 900 mg of methadone in response to CAH, copy medication noncompliance/run out of medication, increased psychotic behavior, increase in depression, anxiety as well as irritability. History of MDD with psychotic features, PTSD, polysubstance use disorders. Given the above information, patient would benefit in restrictive environment for his own safety, medication management, and refer patient back to outpatient psychiatric services for aftercare. Hospital course: 05/04/25: Seroquel 100 at bedtime for sleep/psychosis Seroquel 50 mg b.i.d. PRNs for psychosis/agitation Clonidine 0.1 t.i.d. PRNs for severe anxiety. Trazodone 50 mg p.r.n. with a repeat x1 for insomnia. Methadone 70 mg daily at 0800 and 1800. Plan Patient on 15 minute checks for safety. Admitted to . CV. Work with treatment team to do collateral. Currently on probation Contact the hospitalist regarding hospitalist consultation on admission: pending Diagnostic and discharge planning EKG ordered for 05/05/25 at 1000 to monitor for prolong QTc. Patient may benefit from combined methadone dose in the morning instead of b.i.d. OP MTD dose was 150mg daily from [facility]. 05/05: Pt denies SI/HI. He endorses AH x 2 yrs w/o significant improvement and appeared internally preoccupied at one point during our meeting today. He would like to continue the Seroquel for tx of insomnia but is agreeable to trying risperidone for tx of psychosis. Reviewed goal of simplifying med regimen and ideally d/c'ing Seroquel if sx improve w/ risperidone. QTc wnl. -Requested addiction medicine consult to adjust methadone dose as appropriate. 05/06: Pt seen by Addiction Medicine INTERIOR DESIGN DIRECTOR today, who adjusted pt's methadone from bid to daily dosing starting tomorrow. Dose increased from 140 mg/day to 150 mg. Pt denies sx of w/d. Currently denies SI/violent ideation, AHVH. Continue current tx plan for now. 05/07: Laying in bed. keeping to self. Patient reports feeling okay today; he reports sleeping well. denies SI/HI/VH/AH. Encouraged to attend groups. Continue tx plan. 05/08: continue tx plan. 05/09/25: Patient reported that he slept good but had weird dream that feeling like his whole-body get pinched which patient reported that have history of at experience but not sure what is coming from as patient usually take combination of medications. Patient reports his anxiety is to the roof this morning until he was able to talk to the per patient officer and now reported that he has anxiety and depression is going down. Reports still hearing voices, just a minute or couple of minutes prior to meeting with this provider. Denies currently active SI but sometimes it is still in the back of his head. No active plan or intention. Discussed with patient regarding risperidone 2 increased targeting voices. Patient is receptive with the plan. Reported that he takes clonidine PRNs which is very helpful. He does not want to take Seroquel as it may sedated him during the day per nursing. Pain patient met with addiction team a couple of times, have his methadone dose up to 150 mg combined in once in the morning. EKG was NSR. Patient is less irritable, more cooperative, brighter affect, social with peers inappropriate on the unit, visible and attended groups. Hydroxyzine 25 mg PRNs is resumed Seroquel 50 mg p.r.n. b.i.d. p.r.n. down to 25 mg. Increase Risperidone from 1mg BID to 2mg BID for voices. 05/10: Active on unit. social with peers. Patient reports feeling anxious but I'm always like that ; he reports auditory hallucinations of random stuff , pt declined to go into detail. denies SI/HI/VH. He reports sleeping well last night. Continue tx plan. 05/11: continue tx plan 05/12: Continue current regimen and plans. 05/13/25: Patient is visible, social and attended groups. Report voices but with much less intense. Report he sometimes makes a conspiracy over his voices. Also report pitching feeling on left upper arm and right leg which are not new to him. Denies SI/SIB/HI. Report he feels safe and better. Per nursing, med compliant and slept for 7 hours. Self reports he was up a couple times at night. Encourage to not napping too late in the afternoon which could affect his nighttime sleep. Patient is receptive with plan of medication and education. Increased Risperidone up to 2mg BID for voices. Patient educated on: diagnosis, medication risk/benefits and therapeutic strategies Informed Consent: understands and further education needed Reason for continued inpatient stay Substantial Risk for: med/psych decompensation Time Spent With Patient Time: Total time managing care of this patient today ____ minutes.
[2025-05-13 15:40] VITALS: BP 96/69
[2025-05-13 20:00] VITALS: BP 120/76; PULSE 90; RESP 16; TEMP 36.2; O2SAT 97
[2025-05-14] MEDS: methADONE HCl 20 MG/2 ML ORAL.CONC 150 MG PO (07:55)
[2025-05-14 08:07] VITALS: BP 147/86; PULSE 95; RESP 16; TEMP 36.3; O2SAT 93
--- NOTE | 2025-05-14 15:19 | HO.PSYCHPN ---
Subjective Subjective Date of Service: 05/14/25 Reason For Visit: major depression, recurrent, severe ; cocaine use Subjective Notes: Conditional Voluntary Healthcare Proxy: No Guardianship: No Medical Problems Affecting Mental Status: No Interim History: Medical record and nursing notes reviewed; case discussed during rounds with team/nursing staff, and met with patient for supportive therapy/psychoeducation, as well as medication management. Patient has been visible, social and attended groups. Report one of the peers is changing people . Report nightmare and muscle tense on left arm and right lower leg. Report voices with much less tense, no CAH in nature. Compliant with meds, denies other side effects. He is happy that he is leaving on Friday. Agree to try flexeril tonight. Per nursing, patient slept for 8 hours. In good behavior control. Medication Compliance: Yes Side effects from medications: No Attending Groups: Yes Review of Systems Acute medical concerns: No Medical Review of Systems: unchanged Review of Systems Review of Systems Constitutional: Denies fatigue and Denies fever(s) Cardiovascular: Denies chest pain and Denies dyspnea Respiratory: Denies dyspnea Gastrointestinal: Denies abdominal pain Psychiatric: denies suicidal ideation Endocrine: Denies fatigue Yes all other systems are reviewed and are negative Mental Status Exam Mental Status Exam Narrative: Appearance: grooming/hygiene and eye contact wnl. Speech: Fluent and wnl in regard to volume, tone, prosody Motor activity: Calmer and without any tics, tremors or dyskinesias. Mood: okay Affect: appropriate, constricted Thought process: goal directed and without evidence of formal thought disorder Thought content: denies SI/violent ideation. Perception: Report AH with much improving but does not appear internally preoccupied Alert/oriented in all spheres Cognition grossly intact Insight: intact Judgment: intact Diagnostics Vital Signs (24Hr): Vital Signs - 24 hr 05/13/25 15:40 05/13/25 20:00 05/14/25 08:07 Temperature 97.2 F 97.4 F Pulse Rate 90 95 Respiratory Rate 16 16 Blood Pressure 96/69 120/76 147/86 H Pulse Oximetry 97 93 Oxygen Delivery Method Room Air Room Air BMI result Body Mass Index 20.9 Medications Medications Current Medications Acetaminophen (Acetaminophen 325 Mg Tablet) 650 mg PO Q6H PRN PRN Reason: Headache/Pain, Scale 1-10 Al Hydroxide/Mg Hydroxide (Magnesium Hydrox/Alum Hydrox 30 Ml Oral.Susp) 30 ml PO Q6H PRN PRN Reason: Heartburn/Nausea Clonidine HCl (Clonidine Hcl 0.1 Mg Tablet) 0.1 mg PO BID PRN; Protocol PRN Reason: severe anxiety Last Admin: 05/13/25 15:40 Dose: 0.1 mg Hydroxyzine HCl (Hydroxyzine Hcl 25 Mg Tablet) 25 mg PO Q6H PRN PRN Reason: mild anxiety Last Admin: 05/13/25 20:45 Dose: 25 mg Magnesium Hydroxide (Milk Of Magnesia 30 Ml Oral.Susp) 30 ml PO DAILY PRN PRN Reason: Constipation Methadone HCl (Methadone Hcl 20 Mg/2 Ml Oral.Conc) 150 mg PO DAILY@0800 [facility] Last Admin: 05/14/25 07:55 Dose: 150 mg Nicotine (Nicotine 21 Mg Patch.Td24) 21 mg TRANSDERMA DAILY PRN PRN Reason: nicotine craving Quetiapine Fumarate (Quetiapine Fumarate 100 Mg Tablet) 100 mg PO BEDTIME [facility] Last Admin: 05/13/25 20:44 Dose: 100 mg Quetiapine Fumarate (Quetiapine Fumarate 25 Mg Tablet) 25 mg PO BID PRN PRN Reason: agitation/voices Last Admin: 05/14/25 01:20 Dose: 25 mg Risperidone (Risperidone 2 Mg Tablet) 2 mg PO BID [facility] Last Admin: 05/14/25 08:23 Dose: 2 mg Trazodone HCl (Trazodone Hcl 50 Mg Tablet) 50 mg PO BEDTIME MRX1 PRN PRN Reason: Insomnia Last Admin: 05/11/25 20:37 Dose: 50 mg Allergies Allergies Allergy/AdvReac Type Severity Reaction Status Date / Time No Known Allergies (No Known Allergy Verified 05/04/25 17:50 Allergies*) Assessment & Plan Assessment & Plan (1) MDD (major depressive disorder), recurrent, severe, with psychosis: Status: Acute Code(s): F33.3 - Major depressive disorder, recurrent, severe with psychotic symptoms (2) Opioid dependence on agonist therapy: Status: Acute Code(s): F11.20 - Opioid dependence, uncomplicated (3) OD (overdose of drug): Status: Acute Code(s): T50.901A - Poisoning by unspecified drugs, medicaments and biological substances, accidental (unintentional), initial encounter Plan HPI: Patient is a 39 years old single, Persian speaking male with unknown medical history, and history of opioids order, MDD, PTSD admitted medical floor at [facility] following intentional opiate overdose in an attempt at self-harm on 04/29/25. Patient was admitted to medical floor after suicide attempt. Patient has been on methadone maintenance for about 10 years with it [facility] in [place] for a few years. Daily dose at 150 mg with 6 take-home bottles. Patient reports he has been doing well attending appointments and having negative urine drug test so he was given weekly appointments for the past 2 months. However patient reported that prior to that 2 months he was struggling long with daily use of cocaine and heroin. He states that he was using 50-100 dollars worth intranasal heroin or fentanyl daily and smoking same amount of money with crack and cocaine mumbling. Reported that he ran of his psychiatric medication a few weeks ago offer lot to pick them up from pharmacy periodic reported that he started hearing voices that told him to hurt himself and that the day of his last visit on 04/28/2025 he received about 6 bottles and took the entire equivalent to 900 mg. QTC was noted to be 506 on 04/30 and methadone dose was reduced to 30 mg daily. Formulation/clinical reasoning: Overdose on 900 mg of methadone in response to CAH, copy medication noncompliance/run out of medication, increased psychotic behavior, increase in depression, anxiety as well as irritability. History of MDD with psychotic features, PTSD, polysubstance use disorders. Given the above information, patient would benefit in restrictive environment for his own safety, medication management, and refer patient back to outpatient psychiatric services for aftercare. Hospital course: 05/04/25: Seroquel 100 at bedtime for sleep/psychosis Seroquel 50 mg b.i.d. PRNs for psychosis/agitation Clonidine 0.1 t.i.d. PRNs for severe anxiety. Trazodone 50 mg p.r.n. with a repeat x1 for insomnia. Methadone 70 mg daily at 0800 and 1800. Plan Patient on 15 minute checks for safety. Admitted to . CV. Work with treatment team to do collateral. Currently on probation Contact the hospitalist regarding hospitalist consultation on admission: pending Diagnostic and discharge planning EKG ordered for 05/05/25 at 1000 to monitor for prolong QTc. Patient may benefit from combined methadone dose in the morning instead of b.i.d. OP MTD dose was 150mg daily from [facility]. 05/05: Pt denies SI/HI. He endorses AH x 2 yrs w/o significant improvement and appeared internally preoccupied at one point during our meeting today. He would like to continue the Seroquel for tx of insomnia but is agreeable to trying risperidone for tx of psychosis. Reviewed goal of simplifying med regimen and ideally d/c'ing Seroquel if sx improve w/ risperidone. QTc wnl. -Requested addiction medicine consult to adjust methadone dose as appropriate. 05/06: Pt seen by Addiction Medicine MAIL DISTRIBUTION CLERK today, who adjusted pt's methadone from bid to daily dosing starting tomorrow. Dose increased from 140 mg/day to 150 mg. Pt denies sx of w/d. Currently denies SI/violent ideation, AHVH. Continue current tx plan for now. 05/07: Laying in bed. keeping to self. Patient reports feeling okay today; he reports sleeping well. denies SI/HI/VH/AH. Encouraged to attend groups. Continue tx plan. 05/08: continue tx plan. 05/09/25: Patient reported that he slept good but had weird dream that feeling like his whole-body get pinched which patient reported that have history of at experience but not sure what is coming from as patient usually take combination of medications. Patient reports his anxiety is to the roof this morning until he was able to talk to the per patient officer and now reported that he has anxiety and depression is going down. Reports still hearing voices, just a minute or couple of minutes prior to meeting with this provider. Denies currently active SI but sometimes it is still in the back of his head. No active plan or intention. Discussed with patient regarding risperidone 2 increased targeting voices. Patient is receptive with the plan. Reported that he takes clonidine PRNs which is very helpful. He does not want to take Seroquel as it may sedated him during the day per nursing. Pain patient met with addiction team a couple of times, have his methadone dose up to 150 mg combined in once in the morning. EKG was NSR. Patient is less irritable, more cooperative, brighter affect, social with peers inappropriate on the unit, visible and attended groups. Hydroxyzine 25 mg PRNs is resumed Seroquel 50 mg p.r.n. b.i.d. p.r.n. down to 25 mg. Increase Risperidone from 1mg BID to 2mg BID for voices. 05/10: Active on unit. social with peers. Patient reports feeling anxious but I'm always like that ; he reports auditory hallucinations of random stuff , pt declined to go into detail. denies SI/HI/VH. He reports sleeping well last night. Continue tx plan. 05/11: continue tx plan 05/12: Continue current regimen and plans. 05/13/25: Patient is visible, social and attended groups. Report voices but with much less intense. Report he sometimes makes a conspiracy over his voices. Also report pitching feeling on left upper arm and right leg which are not new to him. Denies SI/SIB/HI. Report he feels safe and better. Per nursing, med compliant and slept for 7 hours. Self reports he was up a couple times at night. Encourage to not napping too late in the afternoon which could affect his nighttime sleep. Patient is receptive with plan of medication and education. Increased Risperidone up to 2mg BID for voices. 05/14/25: Patient has been visible, social and attended groups. Report one of the peers is changing people . Report nightmare and muscle tense on left arm and right lower leg. Report voices with much less tense, no CAH in nature. Compliant with meds, denies other side effects. He is happy that he is leaving on Friday. Agree to try flexeril tonight. Per nursing, patient slept for 8 hours. In good behavior control. Flexeril 5mg at HS. Patient educated on: diagnosis, medication risk/benefits and therapeutic strategies Informed Consent: understands and further education needed Reason for continued inpatient stay Substantial Risk for: med/psych decompensation Time Spent With Patient Time: Total time managing care of this patient today ____ minutes.
[2025-05-14 16:33] VITALS: BP 116/75
[2025-05-14 20:00] VITALS: BP 130/64; PULSE 91; RESP 18; TEMP 36.4; O2SAT 94
[2025-05-15] MEDS: methADONE HCl 20 MG/2 ML ORAL.CONC 150 MG PO (07:47)
[2025-05-15 08:00] VITALS: BP 117/69; PULSE 96; RESP 18; TEMP 36.2; O2SAT 95
[2025-05-15 11:24] VITALS: BMI 32.8
[2025-05-15 13:44] VITALS: BP 116/74
--- NOTE | 2025-05-15 14:41 | P.PNPSI_ITS ---
Subjective Subjective Date of Service: 05/15/25 Reason For Visit: major depression, recurrent, severe ; cocaine use Subjective Notes: Conditional Voluntary Healthcare Proxy: No Guardianship: No Medical Problems Affecting Mental Status: No Interim History: Medical record and nursing notes reviewed; case discussed during rounds with team/nursing staff, and met with patient for supportive therapy/psychoeducation, as well as medication management. Per nursing, patient has vivid dream d/t hydroxyzine, attended groups but spent more time in room this morning as he does not want to be triggered by peers on the unit. Report AH is still there but under control. No CAH in nature. Report he knows when to seek out staff or help. Request PRN flexeril in addition to HS dose. He feels comfortable and safe going home tomorrow. He is aware that he can call 911 or come to any nearest ED if in the future the voices got worse. He would FLU with OP provider to get meds titrate in the future. He is future focus, no other side effects from meds. Slept for 8 hours. Will discharge by [id number] tomorrow back home. Continue with MTD at preferred clinic. Flexeril 5mg BID PRN for muscle spasm. Medication Compliance: Yes Side effects from medications: No Attending Groups: Intermittent Review of Systems Acute medical concerns: No Medical Review of Systems: unchanged Review of Systems Review of Systems Constitutional: Denies fatigue and Denies fever(s) Cardiovascular: Denies chest pain and Denies dyspnea Respiratory: Denies dyspnea Gastrointestinal: Denies abdominal pain Psychiatric: denies suicidal ideation Endocrine: Denies fatigue Yes all other systems are reviewed and are negative Mental Status Exam Mental Status Exam Narrative: Appearance: grooming/hygiene and eye contact wnl. Speech: Fluent and wnl in regard to volume, tone, prosody Motor activity: Calmer and without any tics, tremors or dyskinesias. Mood: okay Affect: appropriate, constricted Thought process: goal directed and without evidence of formal thought disorder Thought content: denies SI/violent ideation. Perception: Report AH with much improving, no CAH in nature but does not appear internally preoccupied Alert/oriented in all spheres Cognition grossly intact Insight: intact Judgment: intact Diagnostics Vital Signs (24Hr): Vital Signs - 24 hr 05/14/25 16:33 05/14/25 20:00 05/15/25 08:00 Temperature 97.5 F 97.2 F Pulse Rate 91 96 Respiratory Rate 18 18 Blood Pressure 116/75 130/64 117/69 Pulse Oximetry 94 95 Oxygen Delivery Method Room Air Room Air 05/15/25 13:44 Temperature Pulse Rate Respiratory Rate Blood Pressure 116/74 Pulse Oximetry Oxygen Delivery Method BMI result Body Mass Index 32.8 Medications Medications Current Medications Acetaminophen (Acetaminophen 325 Mg Tablet) 650 mg PO Q6H PRN PRN Reason: Headache/Pain, Scale 1-10 Al Hydroxide/Mg Hydroxide (Magnesium Hydrox/Alum Hydrox 30 Ml Oral.Susp) 30 ml PO Q6H PRN PRN Reason: Heartburn/Nausea Clonidine HCl (Clonidine Hcl 0.1 Mg Tablet) 0.1 mg PO BID PRN; Protocol PRN Reason: severe anxiety Last Admin: 05/15/25 13:44 Dose: 0.1 mg Cyclobenzaprine HCl (Cyclobenzaprine Hcl 5 Mg Tablet) 5 mg PO BEDTIME [facility] Last Admin: 05/14/25 20:36 Dose: 5 mg Cyclobenzaprine HCl (Cyclobenzaprine Hcl 5 Mg Tablet) 5 mg PO BID PRN PRN Reason: Muscle Spasm Last Admin: 05/15/25 13:44 Dose: 5 mg Hydroxyzine HCl (Hydroxyzine Hcl 25 Mg Tablet) 25 mg PO Q6H PRN PRN Reason: mild anxiety Last Admin: 05/13/25 20:45 Dose: 25 mg Magnesium Hydroxide (Milk Of Magnesia 30 Ml Oral.Susp) 30 ml PO DAILY PRN PRN Reason: Constipation Methadone HCl (Methadone Hcl 20 Mg/2 Ml Oral.Conc) 150 mg PO DAILY@0800 [facility] Last Admin: 05/15/25 07:47 Dose: 150 mg Nicotine (Nicotine 21 Mg Patch.Td24) 21 mg TRANSDERMA DAILY PRN PRN Reason: nicotine craving Quetiapine Fumarate (Quetiapine Fumarate 100 Mg Tablet) 100 mg PO BEDTIME [facility] Last Admin: 05/14/25 20:36 Dose: 100 mg Quetiapine Fumarate (Quetiapine Fumarate 25 Mg Tablet) 25 mg PO BID PRN PRN Reason: agitation/voices Last Admin: 05/14/25 01:20 Dose: 25 mg Risperidone (Risperidone 2 Mg Tablet) 2 mg PO BID [facility] Last Admin: 05/15/25 08:29 Dose: 2 mg Trazodone HCl (Trazodone Hcl 50 Mg Tablet) 50 mg PO BEDTIME MRX1 PRN PRN Reason: Insomnia Last Admin: 05/11/25 20:37 Dose: 50 mg Allergies Allergies Allergy/AdvReac Type Severity Reaction Status Date / Time No Known Allergies (No Known Allergy Verified 05/04/25 17:50 Allergies*) Assessment & Plan Assessment & Plan (1) MDD (major depressive disorder), recurrent, severe, with psychosis: Status: Acute Code(s): F33.3 - Major depressive disorder, recurrent, severe with psychotic symptoms (2) Opioid dependence on agonist therapy: Status: Acute Code(s): F11.20 - Opioid dependence, uncomplicated (3) OD (overdose of drug): Status: Acute Code(s): T50.901A - Poisoning by unspecified drugs, medicaments and biological substances, accidental (unintentional), initial encounter Plan HPI: Patient is a 39 years old single, Latvian speaking male with unknown medical history, and history of opioids order, MDD, PTSD admitted medical floor at [facility] following intentional opiate overdose in an attempt at self-harm on 04/29/25. Patient was admitted to medical floor after suicide attempt. Patient has been on methadone maintenance for about 10 years with [facility] in [place] for a few years. Daily dose at 150 mg with 6 take-home bottles. Patient reports he has been doing well attending appointments and having negative urine drug test so he was given weekly appointments for the past 2 months. However patient reported that prior to that 2 months he was struggling long with daily use of cocaine and heroin. He states that he was using 50-100 dollars worth intranasal heroin or fentanyl daily and smoking same amount of money with crack and cocaine mumbling. Reported that he ran of his psychiatric medication a few weeks ago offer lot to pick them up from pharmacy periodic reported that he started hearing voices that told him to hurt himself and that the day of his last visit on 04/28/2025 he received about 6 bottles and took the entire equivalent to 900 mg. QTC was noted to be 506 on 04/30 and methadone dose was reduced to 30 mg daily. Formulation/clinical reasoning: Overdose on 900 mg of methadone in response to CAH, copy medication noncompliance/run out of medication, increased psychotic behavior, increase in depression, anxiety as well as irritability. History of MDD with psychotic features, PTSD, polysubstance use disorders. Given the above information, patient would benefit in restrictive environment for his own safety, medication management, and refer patient back to outpatient psychiatric services for aftercare. Hospital course: 05/04/25: Seroquel 100 at bedtime for sleep/psychosis Seroquel 50 mg b.i.d. PRNs for psychosis/agitation Clonidine 0.1 t.i.d. PRNs for severe anxiety. Trazodone 50 mg p.r.n. with a repeat x1 for insomnia. Methadone 70 mg daily at 0800 and 1800. Plan Patient on 15 minute checks for safety. Admitted to . CV. Work with treatment team to do collateral. Currently on probation Contact the hospitalist regarding hospitalist consultation on admission: pending Diagnostic and discharge planning EKG ordered for 05/05/25 at 1000 to monitor for prolong QTc. Patient may benefit from combined methadone dose in the morning instead of b.i.d. OP MTD dose was 150mg daily from [facility]. 05/05: Pt denies SI/HI. He endorses AH x 2 yrs w/o significant improvement and appeared internally preoccupied at one point during our meeting today. He would like to continue the Seroquel for tx of insomnia but is agreeable to trying risperidone for tx of psychosis. Reviewed goal of simplifying med regimen and ideally d/c'ing Seroquel if sx improve w/ risperidone. QTc wnl. -Requested addiction medicine consult to adjust methadone dose as appropriate. 05/06: Pt seen by Addiction Medicine [employer]EL[employer] today, who adjusted pt's methadone from bid to daily dosing starting tomorrow. Dose increased from 140 mg/day to 150 mg. Pt denies sx of w/d. Currently denies SI/violent ideation, AHVH. Continue current tx plan for now. 05/07: Laying in bed. keeping to self. Patient reports feeling okay today; he reports sleeping well. denies SI/HI/VH/AH. Encouraged to attend groups. Continue tx plan. 05/08: continue tx plan. 05/09/25: Patient reported that he slept good but had weird dream that feeling like his whole-body get pinched which patient reported that have history of at experience but not sure what is coming from as patient usually take combination of medications. Patient reports his anxiety is to the roof this morning until he was able to talk to the per patient officer and now reported that he has anxiety and depression is going down. Reports still hearing voices, just a minute or couple of minutes prior to meeting with this provider. Denies currently active SI but sometimes it is still in the back of his head. No active plan or intention. Discussed with patient regarding risperidone 2 increased targeting voices. Patient is receptive with the plan. Reported that he takes clonidine PRNs which is very helpful. He does not want to take Seroquel as it may sedated him during the day per nursing. Pain patient met with addiction team a couple of times, have his methadone dose up to 150 mg combined in once in the morning. EKG was NSR. Patient is less irritable, more cooperative, brighter affect, social with peers inappropriate on the unit, visible and attended groups. Hydroxyzine 25 mg PRNs is resumed Seroquel 50 mg p.r.n. b.i.d. p.r.n. down to 25 mg. Increase Risperidone from 1mg BID to 2mg BID for voices. 05/10: Active on unit. social with peers. Patient reports feeling anxious but I'm always like that ; he reports auditory hallucinations of random stuff , pt declined to go into detail. denies SI/HI/VH. He reports sleeping well last night. Continue tx plan. 05/11: continue tx plan 05/12: Continue current regimen and plans. 05/13/25: Patient is visible, social and attended groups. Report voices but with much less intense. Report he sometimes makes a conspiracy over his voices. Also report pitching feeling on left upper arm and right leg which are not new to him. Denies SI/SIB/HI. Report he feels safe and better. Per nursing, med compliant and slept for 7 hours. Self reports he was up a couple times at night. Encourage to not napping too late in the afternoon which could affect his nighttime sleep. Patient is receptive with plan of medication and education. Increased Risperidone up to 2mg BID for voices. 05/14/25: Patient has been visible, social and attended groups. Report one of the peers is changing people . Report nightmare and muscle tense on left arm and right lower leg. Report voices with much less tense, no CAH in nature. Compliant with meds, denies other side effects. He is happy that he is leaving on Friday. Agree to try flexeril tonight. Per nursing, patient slept for 8 hours. In good behavior control. Flexeril 5mg at HS. 05/15/25: Per nursing, patient has vivid dream d/t hydroxyzine, attended groups but spent more time in room this morning as he does not want to be triggered by peers on the unit. Report AH is still there but under control. No CAH in nature. Report he knows when to seek out staff or help. Request PRN flexeril in addition to HS dose. He feels comfortable and safe going home tomorrow. He is aware that he can call 911 or come to any nearest ED if in the future the voices got worse. He would FLU with OP provider to get meds titrate in the future. He is future focus, no other side effects from meds. Slept for 8 hours. Will discharge by [phone] tomorrow back home. Continue with MTD at preferred clinic. Flexeril 5mg BID PRN for muscle spasm. Patient educated on: diagnosis, medication risk/benefits, substance abuse and therapeutic strategies Informed Consent: understands and further education needed Reason for continued inpatient stay Substantial Risk for: med/psych decompensation Time Spent With Patient Time: Total time managing care of this patient today ____ minutes.
[2025-05-15 19:30] VITALS: BP 116/68; PULSE 86; RESP 17; TEMP 36.3; O2SAT 97
[2025-05-16 07:54] VITALS: BP 107/70; PULSE 91; RESP 16; TEMP 36.2; O2SAT 95
[2025-05-16] MEDS: methADONE HCl 20 MG/2 ML ORAL.CONC 150 MG PO (07:59)
--- NOTE | 2025-05-16 09:06 | PM.PSYDC ---
DS: Providers Provider Date of admission: 05/04/25 17:33 Date of discharge: 05/16/25 Primary care physician: Unknown Physician Attending physician on admission: Dunia Onofre Consults: 05/04/25 18:03 Consult to Hospitalist Routine Comment: [place] [facility] [place] Reason For Exam: Admission physical 05/05/25 13:30 Addiction Medicine Provider Routine Consulting Provider: Addiction Covering Reason for consultation: opioid w/d, methadone reduced after o/d Has provider been notified: No Attending physician on discharge: Iona Lopez DS: Diagnosis Discharge Diagnosis (1) MDD (major depressive disorder), recurrent, severe, with psychosis: Status: Acute (2) Opioid dependence on agonist therapy: Status: Acute (3) OD (overdose of drug): Status: Acute DS: Medications Discharge Medications Home Medications: Previous Rx's ?Medication ?Instructions ?Recorded clonidine HCl 0.1 mg tablet 0.1 mg PO BID PRN severe anxiety 05/15/25 30 days #60 tabs cyclobenzaprine 5 mg tablet 5 mg PO BEDTIME Muscle spasm 14 05/15/25 days #14 tabs cyclobenzaprine 5 mg tablet 5 mg PO BID PRN Muscle Spasm 14 05/15/25 days #28 tabs methadone 10 mg/mL oral 150 mg (15 mL) PO DAILY@0800 #0 mL 05/15/25 concentrate (Methadose) quetiapine 100 mg tablet 100 mg PO BEDTIME Sleep 30 days 05/15/25 #30 tabs quetiapine 25 mg tablet 25 mg PO BID PRN agitation/voices 05/15/25 30 days #30 tabs risperidone 2 mg tablet 2 mg PO BID Mood/voices 30 days 05/15/25 #60 tabs Mental Status Exam Mental Status Exam Narrative: Appearance: grooming/hygiene and eye contact wnl. Speech: Fluent and wnl in regard to volume, tone, prosody Motor activity: Calm and without any tics, tremors or dyskinesias. Mood: okay Affect: appropriate Thought process: goal directed and without evidence of formal thought disorder Thought content: denies SI/violent ideation. Perception: Denies current AH/VH and does not appear to be internally preoccupied. Alert/oriented in all spheres Cognition grossly intact Insight: intact Judgment: intact DS: Summary Hospital Course Hospital Course: Patient is a 39 years old single, Azeri speaking male with unknown medical history, and history of opioid use order, MDD, PTSD admitted medical floor at [facility] following intentional opiate overdose in an attempt at self-harm on 04/29/25. Patient was admitted to medical floor after suicide attempt. Patient has been on methadone maintenance for about 10 years with it [facility] in [place] for a few years. Daily dose at 150 mg with 6 take-home bottles. Patient reports he has been doing well attending appointments and having negative urine drug test so he was given weekly appointments for the past 2 months. However patient reported that prior to that 2 months he was struggling long with daily use of cocaine and heroin. He states that he was using 50-100 dollars worth intranasal heroin or fentanyl daily and smoking same amount of money with crack and cocaine mumbling. Reported that he ran of his psychiatric medication a few weeks ago offer lot to pick them up from pharmacy periodic reported that he started hearing voices that told him to hurt himself and that the day of his last visit on 04/28/2025 he received about 6 bottles and took the entire equivalent to 900 mg. QTC was noted to be 506 on 04/30 and methadone dose was reduced to 30 mg daily, then gradually titrated up to 70 mg bid after QTc normalized. Hospital course: Initiail tx plan: Pt was admitted to on a CV for safety and stabilization and started on 15 min safety checks. Meds- Seroquel 100 at bedtime for sleep/psychosis Seroquel 50 mg b.i.d. PRNs for psychosis/agitation Clonidine 0.1 t.i.d. PRNs for severe anxiety. Trazodone 50 mg p.r.n. with a repeat x1 for insomnia. Methadone 70 mg daily at 0800 and 1800. EKG ordered for 05/05/25 at 1000 to monitor for prolong QTc. Patient may benefit from combined methadone dose in the morning instead of b.i.d. OP MTD dose was 150mg daily from [facility]. 05/05: Pt denies SI/HI. He endorses AH x 2 yrs w/o significant improvement and appeared internally preoccupied at one point during our meeting today. He would like to continue the Seroquel for tx of insomnia but is agreeable to trying risperidone for tx of psychosis. Reviewed goal of simplifying med regimen and ideally d/c'ing Seroquel if sx improve w/ risperidone. QTc wnl. -Requested addiction medicine consult to adjust methadone dose as appropriate. 05/06: Pt seen by Addiction Medicine [employer]ES[employer] ARTIST today, who adjusted pt's methadone from bid to daily dosing starting tomorrow. Dose increased from 140 mg/day to 150 mg. Pt denies sx of w/d. Currently denies SI/violent ideation, AHVH. 05/09/25: Endorsed AH of voices. Agreeable w/ plan to titrate risperidone from 1 mg bid to 2 mg bid Denies active SI. EKG was NSR and QTc wnl. Patient is less irritable, more cooperative, brighter affect, social with peers inappropriate on the unit, visible and attended groups. Hydroxyzine 25 mg PRNs is resumed Seroquel tapered from 50 mg bid prn to 25 mg bid prn 05/13/25: Patient is visible, social and attended groups. Reports AH of voices are much less intense. Denies SI/SIB/HI. Report he feels safe and better. Per nursing, med compliant and slept for 7 hours. 05/14/25: Flexeril 5 mg ordered at hs for c/o muscle tension/pain in arm and leg. 05/15/25: AH much more manageable. Denies CAH. Slept 8 hrs. Pt did not engage in any unsafe behaviors throughout his admission. His mood, psychotic symptoms and sleep significantly improved. He denied SI/violent ideation and felt safe with the plan to discharge on 05/16/25. Status at Discharge Functional status at discharge: independent ambulation Overall status at discharge: patient is back to baseline Time Spent with Patient Time attestation: Total time managing care of this patient today ____ minutes. Time spent: Less than 30 minutes Discharge Plan Discharge Anticipated Discharge Date/Time: 05/16/25 11:00 Patient Disposition: Home, Self-Care Discharge Diagnosis: MDD, severe with psychotic feature, opioid use disorder on MAT. Referrals: [facility] (Psychiatry) [Other] - 1 Week Referral Note: Please follow up with your PACT team. [facility] (Psychiatry, Therapy) [Other] - 1 Week Referral Note: Walk in hours are Friday-Friday 8am-8pm as well as weekend hours 9am-5pm [facility] [Provider Group] - 1 Week Referral Note: 05-16-25 [facility] was added to patients chart. Please call [phone] to schedule a follow up appt within 7-10 days of discharge. No release or PCP on file Discharge Medications: New cyclobenzaprine 5 mg Tablet 5 mg PO BEDTIME 14 Days Qty: 14 0RF cyclobenzaprine 5 mg Tablet 5 mg PO BID PRN (Reason: Muscle Spasm) 14 Days Qty: 28 0RF clonidine HCl 0.1 mg Tablet 0.1 mg PO BID PRN (Reason: severe anxiety) 30 Days Qty: 60 0RF Protocol: Hold for SBP< HOLD for SBP < : 90 quetiapine 100 mg Tablet 100 mg PO BEDTIME 30 Days Qty: 30 0RF methadone [Methadose] 10 mg/mL Concentrate 150 mg PO DAILY@0800 Qty: 0 0RF Rx Instructions: Partial Fill upon patient request. quetiapine 25 mg Tablet 25 mg PO BID PRN (Reason: agitation/voices) 30 Days Qty: 30 0RF risperidone 2 mg Tablet 2 mg PO BID 30 Days Qty: 60 0RF Discontinued methadone 10 mg/mL Concentrate 70 mg PO BID aripiprazole [Abilify] 5 mg Tablet 5 mg PO DAILY Discharge Orders: Discharge Order (Routine); Ordered 05/16/25 Ordered By: Dunia Onofre Diet: Regular diet Activity on Discharge: No Restrictions Stand Alone Forms: Patient Portal Discharge page, Community Support Print Language: Azeri Care Plan Goals: Maintain mood and safe behaviors Take medications as prescribed Continue to pursue sobriety Practice coping skills Continue with outpatient providers and reach out to them as needed Health Concerns: Mood stability and behaviors Sobriety psychosis: will FLU with OP provider to have medication increase for voices if needed. Plan of Treatment: Follow up with your PCP, psychiatric provider and other outpatient providers regarding above concerns Take medications as prescribed Assessment: Assessment: Risk assessment at time of discharge: Patient was interviewed prior to discharge and found to be fully oriented and without any SI or HI. Patient has improved insight and judgment and wants to continue treatment. Patient is not in imminent risk of harm to self or others and has a safety plan that includes presenting to the closest ER or calling 911 if feeling unsafe. Patient has been observed closely by nursing and unit staff throughout admission; patient has not engaged in any behaviors that suggest dangerousness to self or others and has demonstrated appropriate behaviors and impulse control Discharge Date/Time: 05/16/25 10:08
== END 2025-05-16 10:08 | disposition home or self-care (01) | DRG 751 ==
PROVIDERS: Admitting Provider Psychiatry & Neurology Psychiatry; Visit Provider Psychiatry & Neurology Psychiatry
DX: F33.3 Major depressive disorder, recurrent, severe with psychotic symptoms (principal); F11.20 Opioid dependence, uncomplicated; F43.10 Post-traumatic stress disorder, unspecified; F19.10 Other psychoactive substance abuse, uncomplicated; R94.31 Abnormal electrocardiogram [ECG] [EKG]; Z91.51 Personal history of suicidal behavior; Z79.899 Other long term (current) drug therapy
CPT/HCPCS: 93005

== ENCOUNTER 2025-05-04 17:33 | Outpatient (BNV) | payer OTHER, SELFPAY | END 2025-05-05 11:52 | PROVIDERS: Admitting Provider Psychiatry & Neurology Psychiatry; Visit Provider Internal Medicine Cardiovascular Disease | DX: Z13.6 Encounter for screening for cardiovascular disorders (principal) | CPT/HCPCS: 93010 ==

== ENCOUNTER 2025-05-04 17:33 | Outpatient (BNV) | payer OTHER, SELFPAY | END 2025-05-09 10:14 | PROVIDERS: Admitting Provider Psychiatry & Neurology Psychiatry; Visit Provider Internal Medicine Cardiovascular Disease | DX: R94.31 Abnormal electrocardiogram [ECG] [EKG] (principal); Z13.6 Encounter for screening for cardiovascular disorders | CPT/HCPCS: 93010 ==

== ENCOUNTER → 2025-05-04 17:33 | Outpatient (BNV) | payer OTHER, SELFPAY | PROVIDERS: Admitting Provider Psychiatry & Neurology Psychiatry; Visit Provider Nurse Practitioner Family | DX: Z02.2 Encounter for examination for admission to residential institution (principal) | CPT/HCPCS: 99499 ==

== ENCOUNTER → 2025-05-04 17:33 | Outpatient (BNV) | payer OTHER, SELFPAY | PROVIDERS: Admitting Provider Psychiatry & Neurology Psychiatry; Visit Provider Psychiatry & Neurology Psychiatry | DX: F33.3 Major depressive disorder, recurrent, severe with psychotic symptoms (principal); F11.20 Opioid dependence, uncomplicated; T50.901A Poisoning by unspecified drugs, medicaments and biological substances, accidental (unintentional), initial encounter | CPT/HCPCS: 99231; 99232 ==